=== PATIENT | male | born 1935 | race Caucasian/White ===

== ENCOUNTER 2017-01-16 04:47 | Inpatient (IN) | payer MEDICARE, OTHER ==
[~2017-01-16] VITALS: Ht 177.8 cm; Wt 72.0 kg
[2017-01-16] VITALS (54 sets, daily range): BP systolic 85–160; BP diastolic 56–107; PULSE 72–115; RESP 14–35; TEMP 102.3; Ht 177.8 cm; Wt 72.0 kg
[~2017-01-16 04:47] MED LIST: ACET325T45 PO; AMLO-218 PO; ASPI-664 PO; ATEN50TA PO; BISA-57 PO; CRAN3875 PO; DONE10TA7 PO; MAGN400O4 PO; MEMA5TAB PO; NA P118E PR; TYL500 PO; ZOC10 PO
[2017-01-16] MEDS ORDERED: PROPOFOL 200 MG INJ ONE (05:00)
[2017-01-16] MEDS ORDERED: ETOMIDATE 20 MG INJ ONE (05:00)
[2017-01-16] MEDS ORDERED: ROCURONIUM 50 MG INJ ONE (05:00)
--- NOTE | 2017-01-16 05:24 | ERA ---
ER Documentation Chief Complaint Date/Time DATE: 01/16/17 TIME: 05:24 Chief Complaint Acute respiratory failure HPI . The patient is a 81-year-old male, presenting to the ER because of worsening shortness of breath tonight. He is unable to provide history, the history is obtained from the wool broker in medical record. He is unable has been taking antibiotic for pneumonia Past medical history: Dementia, TIA, hypertension, dyslipidemia Past surgical history/social history/review of system: Unable to obtain due to his condition ROS All systems reviewed and are negative except as per history of present illness. Medications Home Meds Reported Medications Cran/Vitc/Mannose/Inulin/Brom (Uti-Stat Liquid) 3,875 Mg/30 Ml Liquid, 3875 MG PO DAILY 05/05/14 Acetaminophen* (Tylenol*) 500 Mg Tab, 1000 MG PO BID for PAIN AND OR ELEVATED TEMP, TAB 05/05/14 Aspirin* (Aspirin* (EC)) 81 Mg Tablet.dr, 81 MG PO DAILY, TAB 05/05/14 Simvastatin (Simvastatin) 10 Mg Tablet, 10 MG PO HS, TAB 05/05/14 Amlodipine Besylate* (Norvasc*) 10 Mg Tablet, 10 MG PO DAILY, TAB 05/05/14 Atenolol* (Atenolol*) 50 Mg Tablet, 50 MG PO DAILY, TAB 05/05/14 Donepezil* (Aricept*) 10 Mg Tablet, 10 MG PO QHS, TAB 05/05/14 Na Phos,M-B/Na Phos,Di-Ba* (Fleet* Enema) 118 Ml Enema, 118 ML SC DAILY Y for CONSTIPATION, ENEMA 05/05/14 Acetaminophen* (Acetaminophen*) 325 Mg Tablet, 650 MG PO Q4H Y for MILD, TAB 05/05/14 Magnesium Hydroxide* (Milk Of Magnesia*) 400 Mg/5 Ml Oral.susp, 30 ML PO QHS Y for CONSTIPATION, ML 05/05/14 Bisacodyl* (Dulcolax*) 5 Mg Tablet.dr, 10 MG PO DAILY Y for CONSTIPATION, TAB 05/05/14 Memantine* (Namenda*) 5 Mg Tablet, 5 MG PO DAILY, TAB 05/05/14 Allergies Allergies: Coded Allergies: No Known Allergy (Verified , 05/05/14) PMhx/Soc History of Surgery: No Anesthesia Reaction: No Hx Neurological Disorder: Yes (confused) Hx Respiratory Disorders: No Hx Cardiac Disorders: Yes (htn,CAD) Hx Psychiatric Problems: Yes (psychosis per record) Hx Miscellaneous Medical Probl: No Hx Alcohol Use: No Hx Substance Use: No Hx Tobacco Use: No Physical Exam Vitals Vital Signs Date Time Temp Pulse Resp B/P Pulse Ox O2 Delivery O2 Flow Rate FiO2 01/16/17 05:40 102.3 140 20 210/121 100 Non Rebreather 01/16/17 05:30 102.3 137 20 202/115 100 Non Rebreather 01/16/17 05:20 102.3 130 20 181/107 100 Non Rebreather 01/16/17 05:10 102.3 127 20 186/135 100 Non Rebreather 01/16/17 05:00 136 21 197/127 80 Non Rebreather 01/16/17 05:00 121 20 100 100 01/16/17 04:59 136 22 197/127 98 Mechanical Ventilator 01/16/17 04:54 63 21 197/127 80 Physical Exam Const: acute respiratory distress. Head: Atraumatic. Eyes: Normal Conjunctiva. ENT: Normal External Ears, Nose and Mouth. Neck: Full range of motion. No meningismus. Resp: Tachypneic, rhonchi anterior and lateral Cardio: Regular Tachycardic Abd: Soft, non distended, normal bowel sounds, non tender. Skin: No petechiae or rashes. Back: No midline or flank tenderness. Ext: No cyanosis, or edema. Neur: Unable to perform due to his condition Psych: Unable to perform due to his condition Result Diagram: 01/16/17 0503 Results 24 hrs Laboratory Tests Test 01/16/17 05:03 01/16/17 05:15 White Blood Count 21.810^3/ul Red Blood Count 4.1910^6/ul Hemoglobin 11.5g/dl Hematocrit 38.6% Mean Corpuscular Volume 92.1fl Mean Corpuscular Hemoglobin 27.4pg Mean Corpuscular Hemoglobin Concent 29.8g/dl Red Cell Distribution Width 19.4% Platelet Count 38311^3/UL Mean Platelet Volume 12.3fl Neutrophils % 79.7% Lymphocytes % 13.8% Monocytes % 5.4% Eosinophils % 0.3% Basophils % 0.2% Nucleated Red Blood Cells % 0.1/100WBC Neutrophils # 17.310^3/ul Lymphocytes # 3.010^3/ul Monocytes # 1.210^3/ul Eosinophils # 0.110^3/ul Basophils # 0.010^3/ul Nucleated Red Blood Cells # 0.010^3/ul Prothrombin Time 15.1Sec Prothrombin Time Ratio 1.2 INR International Normalized Ratio 1.18 Activated Partial Thromboplast Time 43.4Sec Urine Color YELLOW Urine Clarity CLEAR Urine pH 8.0 Urine Specific [place] 1.025 Urine Ketones NEGATIVEmg/dL Urine Nitrite NEGATIVEmg/dL Urine Bilirubin NEGATIVEmg/dL Urine Urobilinogen 1+mg/dL Urine Leukocyte Esterase NEGATIVELeu/ul Urine Microscopic RBC 1/HPF Urine Microscopic WBC 0/HPF Urine Hemoglobin NEGATIVEmg/dL Urine Glucose NEGATIVEmg/dL Urine Total Protein 2+mg/dl Current Medications Medications (Trade) Dose Ordered Sig/Den Route PRN Reason Start Time Stop Time Status Last Admin Dose Admin Vancomycin HCl 250 ml @ 125 mls/hr ONCE IVPB 01/16/17 06:00 01/16/17 07:59 Cefepime HCl 50 ml @ 100 mls/hr ONCE ONCE IVPB 01/16/17 06:00 01/16/17 06:29 Sodium Chloride (NS) 2,230 ml @ 2,230 mls/hr BOLUS X1 ONCE IV 01/16/17 06:00 01/16/17 06:59 Acetaminophen (Tylenol Supp) 650 mg ONCE ONCE SC 01/16/17 06:00 01/16/17 06:01 Procedures/[place] [id number] Radiology Main Line: [phone] DIAGNOSTIC IMAGING REPORT Patient: STIVEN RINCON : 1935 Age: 81 Sex: M MR #: [id number] DOS: 01/16/17 0524 Ordering MD: DURGA BLUM MD Location: E/R Room/Bed: PROCEDURE: Chest. CLINICAL INDICATION: Chest pain. TECHNIQUE: Single frontal view of the chest was obtained. COMPARISON: 05/05/2014. FINDINGS: Mediasternotomy wires are present. There is an endotracheal tube 5 cm above the ariadna. There is a right IJ central venous cath extending to the SVC. The cardiac silhouette is within normal limits. The aortic arch is uncoiled. There are bibasilar atelectasis/infiltrates. There is no pneumothorax. IMPRESSION: Bibasilar atelectasis/infiltrates. Endotracheal tube and right IJ central venous catheter in place. .Jerrod Velez MD, Date Time Electronically viewed and signed by .Jerrod Velez MD, on 01/16/2017 05:41 .T/ CC: DURGA BLUM MD EKG: Read by emergency physician Rate/Rhythm: Sinus Tachycardia 142 beats/min QRS, ST, T-waves: No ST elevation, no T inversion, LAE, MEDICAL MAKING DECISION: Anterior ST and T abnormality Impression: Abnormal EKG MEDICAL MAKING DECISION: The patient is a 81-year-old male, presenting with acute respiratory failure, acute pneumonia. He was treated with Tylenol suppository for fever, normal saline 30 mL per kilogram IV, vancomycin IV, Cefepime IV with good response. CMP, lactic acid pending Central Line Placement by me: Patient consented, sterilely draped, full prep, gown, glove, mask, time out performed. Anesthesia: 1% lidocaine locally Location: Rt IJ Device: Multiple lumen Technique: Seldinger technique. Secured with suture. Results: Venous return from all ports with easy saline flush. No complications. Guide wire retrieved and disposed of. [ED Ultrasound: Central line placed by me using concurrent ultrasound guidance. Real time image archived in the medical record confirms vascular anatomy. Chest X-ray 1V Interpreted by me: Central line in SVC, Normal soft tissue, No evidence of pneumothorax. Endotracheal Intubation by me: Pre assessment performed. See preceding note for details. Pre-oxygenation performed with 100% oxygen RSI: Performed w/o complication or hypoxic events. Medications as ordered. Blade: [place] Scope ET Tube: 7.5 cm Depth: 23 cm at the lip Intubation confirmed by colorimetric CO2, equal breath sounds, quiet over the stomach. Departure Diagnosis: Primary Impression: Acute respiratory failure Additional Impressions: Pneumonia Anemia BLUM,DURGA M MD Jan 16, 2017 05:24
[2017-01-16 05:32] LABS: BASOPHILS % 0.2 % (0.0-2.0); EOSINOPHILS # 0.1 10^3/ul (0.0-0.5); EOSINOPHILS % 0.3 % (0.0-7.0); HEMATOCRIT 38.6 % (42.0-52.0); HEMOGLOBIN 11.5 g/dl (14.0-18.0); LYMPHOCYTES % 13.8 % (15.0-51.0); MEAN CORPUSCULAR HEMOGLOBIN 27.4 pg (29.0-33.0); MEAN CORPUSCULAR HGB CONC 29.8 g/dl (32.0-37.0); MEAN CORPUSCULAR VOLUME 92.1 fl (82.0-101.0); MEAN PLATELET VOLUME 12.3 fl (7.4-10.4); MONOCYTE # 1.2 10^3/ul (0.3-0.9); MONOCYTES % 5.4 % (0.0-11.0); NEUTROPHIL # 17.3 10^3/ul (1.6-7.5); NEUTROPHILS % 79.7 % (39.0-77.0); NUCLEATED RED BLOOD CELLS% 0.1 /100WBC (0.0-0.0); PLATELET COUNT 347 10^3/UL (140-415); RED BLOOD COUNT 4.19 10^6/ul (4.70-6.10); RED CELL DISTRIBUTION WIDTH 19.4 % (11.5-14.5); WHITE BLOOD COUNT 21.8 10^3/ul (4.8-10.8)
[2017-01-16 05:36] LABS: INR 1.18; PROTIME 15.1 Sec (12.2-14.2); PT RATIO 1.2
[2017-01-16 05:37] LABS: PARTIAL THROMBOPLASTIN TIME 43.4 Sec (25.0-35.0)
[2017-01-16 05:41] LABS: ADD UMIC YES; UR ASCORBIC ACID 40 mg/dL (NEGATIVE); UR BILIRUBIN (Dip) NEGATIVE (NEGATIVE); UR BLOOD (Dip) NEGATIVE (NEGATIVE); UR CLARITY CLEAR (CLEAR); UR COLOR YELLOW (YELLOW); UR GLUCOSE (Dip) NEGATIVE (NEGATIVE); UR KETONES (Dip) NEGATIVE (NEGATIVE); UR LEUKOCYTE ESTERASE (Dip) NEGATIVE Leu/ul (NEGATIVE); UR NITRITE (Dip) NEGATIVE (NEGATIVE); UR RBC 1 /HPF (0-5); UR SPECIFIC GRAVITY (Dip) 1.025 (1.003-1.030); UR TOTAL PROTEIN (Dip) 2+ mg/dl (NEGATIVE); UR UROBILINOGEN (Dip) 1+ mg/dL (NEGATIVE)
--- NOTE | 2017-01-16 05:41 | RADRPT ---
PROCEDURE: Chest. CLINICAL INDICATION: Chest pain. TECHNIQUE: Single frontal view of the chest was obtained. COMPARISON: 05/05/2014. FINDINGS: Mediasternotomy wires are present. There is an endotracheal tube 5 cm above the ariadna. There is a r ight IJ central venous cath extending to the SVC. The cardiac silhouette is within normal limits. T he aortic arch is uncoiled. There are bibasilar atelectasis/infiltrates. There is no pneumothorax. IMPRESSION: Bibasilar atelectasis/infiltrates. Endotracheal tube and right IJ central venous catheter in place. .Jerrod Velez MD, MD Date Time Electronically viewed and signed by .Jerrod Velez MD, MD on 01/16/2017 05:41 .T/
[2017-01-16 05:43] LABS: ALBUMIN 3.7 g/dl (3.3-4.9); ALBUMIN/GLOBULIN RATIO 0.71; BILIRUBIN,INDIRECT 0.2 mg/dl (0-1.1); BILIRUBIN,TOTAL 0.2 mg/dl (0.2-1.3); CALCIUM 9.7 mg/dl (8.4-10.2); CREATININE 1.64 mg/dl (0.61-1.24); POTASSIUM 3.7 mmol/L (3.5-5.1); TOTAL PROTEIN 8.9 g/dl (6.1-8.1)
[2017-01-16 05:54] LABS: TROPONIN-I 0.042 ng/ml (0.00-0.12)
[2017-01-16] MEDS: SOD CHLORIDE 0.9% 1,000 ML IV SCH ×3 (05:56→16:38)
[2017-01-16] MEDS ORDERED: ACETAMINOPHEN 650 MG SUPP PR PRN (06:00)
[2017-01-16] MEDS ORDERED: SOD CHLORIDE 0.9% IV ONE (06:00)
[2017-01-16] MEDS ORDERED: PANTOPRAZOLE 40 MG INJ IV SCH (06:00)
[2017-01-16] MEDS ORDERED: ONDANSETRON 4 MG INJ IV PRN (06:00)
[2017-01-16] MEDS ORDERED: VANCOMYCIN 1 GM (PMX) 250 ML IVPB SCH (06:00)
[2017-01-16] MEDS ORDERED: CEFEPIME 1GM/50 ML (PMX) 50 ML IVPB ONE (06:00)
[2017-01-16] MEDS ORDERED: ACETAMINOPHEN 650 MG SUPP PR ONE (06:00)
[2017-01-16] MEDS ORDERED: METO-429 PO (06:22)
[2017-01-16] MEDS ORDERED: FAMO20TA18 PO (06:25)
[2017-01-16] MEDS ORDERED: ATOR20TA38 PO (06:25)
[2017-01-16] MEDS ORDERED: TAMS0.4C2 PO (06:25)
[2017-01-16] MEDS ORDERED: DOXA2TAB PO (06:25)
[2017-01-16] MEDS ORDERED: IPRA3AMP INHALATION (06:26)
[2017-01-16] MEDS ORDERED: QUET25TA33 PO (06:26)
[2017-01-16] MEDS ORDERED: PROPOFOL 100 ML IV ONE (06:30)
[2017-01-16] MEDS ORDERED: PIPER-TAZO 2.25 GM (PMX) 50 ML IVPB SCH (09:00)
[2017-01-16] MEDS ORDERED: DEXTROSE 5% 1,000 ML IV ONE ×2 (09:00)
[2017-01-16] MEDS ORDERED: VANCOMYCIN IV PER PHARMACY XX SCH (09:00)
[2017-01-16] MEDS ORDERED: NACL 0.9% 3 ML SYG IV SCH (09:00)
[2017-01-16 09:36] LABS: AADO2 Arterial 556.7 mmHg (7.0-24.0); Allen Test ACCEPTAB; Arterial Base Excess -4.4 mmol/L (-3.0-3); Arterial COHb 0.2 % (0.0-3.0); Arterial Fraction of Oxyhgb 97.5 % (93.0-99.0); Arterial HCO3 20.8 mmol/L (22.0-26.0); Arterial MetHb 0.4 % (0.0-1.5); Arterial Total Hemglobin 9.6 g/dl (12.0-18.0); MODE VENT - AC
[2017-01-16 09:55] LABS: CALCIUM 8.1 mg/dl (8.4-10.2); CREATININE 1.57 mg/dl (0.61-1.24); POTASSIUM 3.7 mmol/L (3.5-5.1)
[2017-01-16] MEDS: ENOXAPARIN 30 MG/0.3 ML SYG SC SCH (10:52)
--- NOTE | 2017-01-16 10:59 | CONS ---
Date/Time of Note Date/Time of Note DATE: 01/16/17 TIME: 10:55 Assessment/Plan Assessment/Plan Additional Assessment/Plan Data setting; AC of 20, tidal volume 500, PEEP of 5, 100% FiO2. Patient currently on propofol at 25 mics per kilogram per minute. She also is getting intravenous of D5 for severe hypernatremia. And has been adequately fluid resuscitated. Chest x-ray was reviewed from today which is showing minimal right lower lobe segmental atelectasis. ET tube is at an adequate level. Assessment and recommendations; next 1. Patient admitted with severe hyponatremia and intravascular volume depletion. 2. Possibly sepsis, source is unclear. 3. History of hypertension dementia. 4. Chronic dysphagia, as evidenced by G-tube placement. 5. Prerenal azotemia. Next Continue current treatment. Will obtain a blood gas. Once ABGs done I will review it and make further recommendations. Monitor electrolytes. Consultation Date/Type/Reason Admit Date/Time Jan 16, 2017 at 05:58 Date of Consultation: Jan 16, 2017 Type of Consultation: Pulmonary/critical care Reason for Consultation Pulmonary consultation requested for evaluation of respiratory failure. History of presenting illness; patient is a 9-year-old white male who was transferred from skilled nursing with complaints of being short of breath and no doing well. By the time the patient was seen he was completely obtunded and had to be intubated for respiratory failure. History was obtained from medical records. Patient apparently does not have any family. Past medical history; 1. Dementia. 2. Chronic dysphagia, status post G-tube placement. Medications; reviewed. Allergies; none. Social history, family history, occupational histories not available. Review systems; unable to be obtained. General exam; elderly male, orally intubated, sedated. Currently in no distress. Social History Smoking Status: Unknown if ever smoked Exam/Review of Systems Vital Signs Vitals Vital Signs Date Time Temp Pulse Resp B/P Pulse Ox O2 Delivery O2 Flow Rate FiO2 01/16/17 08:00 99 01/16/17 06:38 20 118/78 100 T Tube 01/16/17 05:40 102.3 01/16/17 05:00 100 Exam HEENT exam; supple neck, no JVD. No lymphadenopathy. Midline trachea. No thyromegaly. Orally intubated. Patient has a multiple carious teeth. Pupils are small bilaterally. Chest exam; diminished but clear breath sounds. S1-S2 audible, no murmurs. There is a well-healed sternal scar. Abdomen exam; soft, G-tube in place. Bowel sounds are sluggish. Abdomen is nondistended. No organomegaly felt. Extremity exam; no peripheral edema. PERSONNEL TECHNICIAN exam; patient is sedated. Results Result Diagram: 01/16/17 0503 01/16/17 0918 Results 24 hrs Laboratory Tests Test 01/16/17 05:03 01/16/17 05:15 01/16/17 08:47 01/16/17 09:18 White Blood Count 21.8 #H Red Blood Count 4.19 L Hemoglobin 11.5 #L Hematocrit 38.6 L Mean Corpuscular Volume 92.1 Mean Corpuscular Hemoglobin 27.4 L Mean Corpuscular Hemoglobin Concent 29.8 L Red Cell Distribution Width 19.4 #H Platelet Count 347 Mean Platelet Volume 12.3 #H Neutrophils % 79.7 H Lymphocytes % 13.8 L Monocytes % 5.4 Eosinophils % 0.3 Basophils % 0.2 Nucleated Red Blood Cells % 0.1 H Neutrophils # 17.3 H Lymphocytes # 3.0 H Monocytes # 1.2 H Eosinophils # 0.1 Basophils # 0.0 Nucleated Red Blood Cells # 0.0 Prothrombin Time 15.1 H Prothrombin Time Ratio 1.2 INR International Normalized Ratio 1.18 Activated Partial Thromboplast Time 43.4 H Sodium Level 178 *H 166 *H Potassium Level 3.7 3.7 Chloride Level 135 H 135 H Carbon Dioxide Level 25 23 Anion Gap 22 H 12 # Blood Urea Nitrogen 72 H 64 H Creatinine 1.64 H 1.57 H Glucose Level 149 269 #H Lactic Acid Level 3.3 *H 2.0 Calcium Level 9.7 8.1 L Total Bilirubin 0.2 Direct Bilirubin 0.00 Indirect Bilirubin 0.2 Aspartate Amino Transf (AST/SGOT) 36 Alanine Aminotransferase (ALT/SGPT) 30 Alkaline Phosphatase 118 Troponin I 0.042 Total Protein 8.9 H Albumin 3.7 Globulin 5.20 H Albumin/Globulin Ratio 0.71 Urine Color YELLOW Urine Clarity CLEAR Urine pH 8.0 Urine Specific [place] 1.025 Urine Ketones NEGATIVE Urine Nitrite NEGATIVE Urine Bilirubin NEGATIVE Urine Urobilinogen 1+ H Urine Leukocyte Esterase NEGATIVE Urine Microscopic RBC 1 Urine Microscopic WBC 0 Urine Hemoglobin NEGATIVE Urine Glucose NEGATIVE Urine Total Protein 2+ H Blood Gas Specimen Source Blood arterial Arterial Blood Date Drawn 01/16/2017 9:20:15 AM Arterial Blood pH (Temp corrected) 7.350 Arterial Blood pCO2 (Temp correct) 38.5 Arterial Blood pO2 (Temp corrected) 117.8 H Arterial Blood HCO3 20.8 L Arterial Blood Base Excess -4.4 L Arterial Blood Oxygen Saturation 98.1 Keith Test ACCEPTAB Arterial Blood Gas Puncture Site Right Radial Arterial Blood Carboxyhemoglobin 0.2 Arterial Blood Methemoglobin 0.4 Blood Gas A-a O2 Differential 556.7 H Oxyhemoglobin Percent 97.5 Total Hemoglobin 9.6 L Blood Gas Temperature 37.0 Blood Gas Respiration Rate 20.0 Blood Gas Actual Respiration Rate 28 Blood Gas Modality VENT - AC FiO2 100.0 Blood Gas Tidal Volume 500.0 Blood Gas Low PEEP Setting 5.0 Blood Gas Critical Value Read Back Katiuska PERDUE RN Blood Gas Notified Whom RDIX Blood Gas Notified Time 01/16/2017 9:36:04 AM Medications Medications Current Medications Sodium Chloride (NS) 1,000 ml @ 70 mls/hr [id number] IV ; Start 01/16/17 at 05:56 Ondansetron HCl (Zofran Inj) 4 mg Q6H PRN IV NAUSEA AND/OR VOMITING; Start at 06:00 Acetaminophen (Tylenol Supp) 650 mg Q4H PRN [place] PAIN LEVEL 1-3 OR FEVER; Start 01/16/17 at 06:00 Enoxaparin Sodium (Lovenox) 30 mg DAILY SC ; Start 01/16/17 at 09:00 Famotidine 20 mg 20 mg DAILY IV ; Start 01/17/17 at 09:00 Vancomycin HCl 500 mg/Dextrose 100 ml @ 100 mls/hr ONCE IVPB ; Start 01/16/17 at 12:00; Stop 01/16/17 at 18:00 Vancomycin HCl 750 mg/Dextrose/ Water 150 ml @ 75 mls/hr Q24H IVPB ; Start at 12:00 Piperacillin Sod/ Tazobactam Sod/ Dextrose (Zosyn/D5W) 50 ml @ 100 mls/hr Q6 IVPB ; Start 01/16/17 at 12:00 HANY LAWLER Jan 16, 2017 10:59
[2017-01-16] MEDS ORDERED: PIPERACILLIN/TAZO 2.25 GM in DEXTROSE 5% 50 ML IVPB SCH (12:00)
[2017-01-16] MEDS ORDERED: VANCOMYCIN 500 MG in DEXTROSE 5% 100 ML IVPB SCH (12:00)
[2017-01-16] MEDS: PROPOFOL 100 ML IV SCH ×3 (12:00→22:19)
--- NOTE | 2017-01-16 13:28 | HP ---
Date/Time of Note Date/Time of Note DATE: 01/16/17 TIME: 13:00 Assessment/Plan VTE Prophylaxis VTE Prophylaxis Intervention: LMWH Lines/Catheters IV Catheter Type (from Nrs): Peripheral IV Urinary Cath still in place: Yes Reason Cath still needed: urinary retention Assessment/Plan Chief Complaint/Hosp Course 81 yo male with advanced Alzheimer's and vascular dementia, CAD s/p CABG, recurrent aspiration pneumonias, PEG tube for dysphagia [place] resident who presents with sepsis from aspiration pneumonia and hypernatremia. Requiring intubation for acute hypoxic respiratory failure PULM: Acute hypoxic respiratory failure - Continue MV, currently to 100% FiO2 ID: Aspiration pneumonia, severe sepsis: - No effusion seen on bedside ultrasound, clear hepatization or RLL - Continue vanco/zosyn for now - Sputum culture - Blood cultures pending RENAL: Hypernatremia and JOSLYN - D5W to correct FW deficit slowly - s/p NS boluses to restore euvolemia - Trend electrolytes NEURO: Alzheimers and vascular dementia CV: Hypertension CAD s/p CABG - Aspirin and statin - Hold antihypertensives for now Lactic acidosis DMII: - Insulin gtt Overall patient with dismal jail prognosis. Patient and step daughter are aware of this and have discussed hospice previously. They are not willing to change goals of care at this time. Remains full code Problems: HPI/ROS Admit Date/Time Admit Date/Time Jan 16, 2017 at 05:58 Hx of Present Illness 81 yo male with advanced Alzheimers and vascular dementia, s/p CVA, recurrent aspiration pneumonias, dysphagia w PEG tube who presents with hypoxia and worsening lethargy from [place]. Per documentation was recently discharged from [facility] for pneumonia treated w [facility]. Unclear details during post hosptial course but clealry with wosening hypoxia and lethargy. Brought to hosptial and foudn to be febrile, hypoxic and emergently intubated in the ED. Also found to be severely hypernatremic Brought to ICU where I saw him. Unable to communicate wtih me but appears comfortable on the ventilator Step daughter and then showed up at bedside. DIscussed his dismal prongosis. THey are aware that he will not recovere from dementai and will suffer recurrent aspiration pneumonias but do not want to let him . Still request full court press PMH/Family/Social Past Medical History CAD s/p CABG Emphsyema Recurrent aspiration pneumonais Alzheimers dmeentia Vascular dementia Social History Smoking Status: Unknown if ever smoked Exam/Review of Systems Vital Signs Vitals Vital Signs Date Time Temp Pulse Resp B/P Pulse Ox O2 Delivery O2 Flow Rate FiO2 01/16/17 08:00 99 01/16/17 06:38 20 118/78 100 T Tube 01/16/17 05:40 102.3 01/16/17 05:00 100 Exam Exam Intubated Sedated Reacts to pain in all extremities Lungs rhoncorous anteriorly PEG tube Abdomen sof adeel nd No edema Labs Result Diagram: 01/16/17 0503 01/16/17 0918 Medications Medications Current Medications Sodium Chloride (NS) 1,000 ml @ 70 mls/hr [id number] IV Last administered on 01/16 11:30; Admin Dose 70 MLS/HR; Start 01/16/17 at 05:56 Ondansetron HCl (Zofran Inj) 4 mg Q6H PRN IV NAUSEA AND/OR VOMITING; Start at 06:00 Acetaminophen (Tylenol Supp) 650 mg Q4H PRN [place] PAIN LEVEL 1-3 OR FEVER; Start 01/16/17 at 06:00 Enoxaparin Sodium (Lovenox) 30 mg DAILY SC Last administered on 01/16/17 10:52 ; Admin Dose 30 MG; Start 01/16/17 at 09:00 Famotidine 20 mg 20 mg DAILY IV ; Start 01/17/17 at 09:00 Vancomycin HCl 500 mg/Dextrose 100 ml @ 100 mls/hr ONCE IVPB Last administered on 01/16/17 12:11; Admin Dose 100 MLS/HR; Start 01/16/17 at 12:00 ; Stop 01/16/17 at 18:00 Vancomycin HCl 750 mg/Dextrose/ Water 150 ml @ 75 mls/hr Q24H IVPB ; Start at 12:00 Piperacillin Sod/ Tazobactam Sod 2.25 gm/Dextrose 50 ml @ 100 mls/hr Q6 IVPB ; Start 01/16/17 at 12:00 Propofol (Diprivan) 100 ml @ 2.16 mls/hr Q12H IV Last administered on 12:41; Admin Dose 10.8 MLS/HR; Start 9/23/17 at 12:00 KARLIE VELEZ MD Jan 16, 2017 13:21
[2017-01-16 15:58] LABS: CALCIUM 7.8 mg/dl (8.4-10.2); CREATININE 1.61 mg/dl (0.61-1.24); POTASSIUM 3.1 mmol/L (3.5-5.1)
[2017-01-16] MEDS: POTASSIUM CHLORIDE 250 ML IVPB SCH ×2 (19:45→23:08)
--- NOTE | 2017-01-16 21:05 | RADRPT ---
PROCEDURE: XR Chest. CLINICAL INDICATION: Shortness of breath. TECHNIQUE: AP Portable chest. COMPARISON: Examination performed earlier the same day. FINDINGS: There is mild cardiomegaly. Prior median sternotomy is noted. There is mild pulmonary vascular vee estion with hazy opacity at the right lung base. The osseous structures are unremarkable. An endotracheal tube tip is in the mid trachea. A right internal jugular central venous catheter is seen with tip in the superior vena cava. IMPRESSION: Mild pulmonary vascular congestion and hazy opacity at the right lung base, likely due to pleural ef fusion. RPTAT: HIKT .Jeferson Gibbons MD, MD Date Time Electronically viewed and signed by .Jeferson Gibbons MD, MD on 01/16/2017 21:04 .T/
[2017-01-16 21:13] LABS: CALCIUM 7.7 mg/dl (8.4-10.2); CREATININE 1.66 mg/dl (0.61-1.24); POTASSIUM 3.8 mmol/L (3.5-5.1)
[2017-01-16] MEDS: PIPERACILLIN/TAZO 2.25 GM in DEXTROSE 5% 50 ML IVPB SCH (22:21)
[2017-01-17] VITALS (84 sets, daily range): BP systolic 90–130; BP diastolic 51–78; PULSE 70–88; RESP 16–45
[2017-01-17] MEDS: PIPERACILLIN/TAZO 2.25 GM in DEXTROSE 5% 50 ML IVPB SCH ×4 (04:00→21:49)
[2017-01-17 04:07] LABS: INR 1.38; PT RATIO 1.3
[2017-01-17 04:08] LABS: ALBUMIN 2.3 g/dl (3.3-4.9); ALBUMIN/GLOBULIN RATIO 0.62; BILIRUBIN,INDIRECT 0.1 mg/dl (0-1.1); BILIRUBIN,TOTAL 0.1 mg/dl (0.2-1.3); CALCIUM 7.8 mg/dl (8.4-10.2); CREATININE 1.61 mg/dl (0.61-1.24); POTASSIUM 4.2 mmol/L (3.5-5.1)
[2017-01-17 04:13] LABS: BASOPHILS % 0.2 % (0.0-2.0); EOSINOPHILS # 0.8 10^3/ul (0.0-0.5); EOSINOPHILS % 6.7 % (0.0-7.0); HEMATOCRIT 24.3 % (42.0-52.0); HEMOGLOBIN 7.2 g/dl (14.0-18.0); LYMPHOCYTES # 1.3 10^3/ul (0.8-2.9); LYMPHOCYTES % 11.1 % (15.0-51.0); MEAN CORPUSCULAR HEMOGLOBIN 27.7 pg (29.0-33.0); MEAN CORPUSCULAR HGB CONC 29.6 g/dl (32.0-37.0); MEAN CORPUSCULAR VOLUME 93.5 fl (82.0-101.0); MEAN PLATELET VOLUME 12.3 fl (7.4-10.4); MONOCYTE # 0.3 10^3/ul (0.3-0.9); MONOCYTES % 2.5 % (0.0-11.0); NEUTROPHIL # 9.1 10^3/ul (1.6-7.5); NEUTROPHILS % 79.1 % (39.0-77.0); NUCLEATED RED BLOOD CELLS% 0.2 /100WBC (0.0-0.0); PLATELET COUNT 180 10^3/UL (140-415); RED CELL DISTRIBUTION WIDTH 19.1 % (11.5-14.5); WHITE BLOOD COUNT 11.5 10^3/ul (4.8-10.8)
[2017-01-17] MEDS: SOD CHLORIDE 0.9% 1,000 ML IV SCH (06:27)
[2017-01-17] MEDS: FAMOTIDINE 20 MG INJ IV SCH (08:18)
[2017-01-17] MEDS: ENOXAPARIN 30 MG/0.3 ML SYG SC SCH (08:20)
[2017-01-17 09:14] LABS: BASOPHILS % 0.2 % (0.0-2.0); EOSINOPHILS # 0.9 10^3/ul (0.0-0.5); EOSINOPHILS % 7.8 % (0.0-7.0); HEMOGLOBIN 7.3 g/dl (14.0-18.0); LYMPHOCYTES # 1.1 10^3/ul (0.8-2.9); LYMPHOCYTES % 9.3 % (15.0-51.0); MEAN CORPUSCULAR HEMOGLOBIN 28.3 pg (29.0-33.0); MEAN CORPUSCULAR HGB CONC 30.4 g/dl (32.0-37.0); MEAN PLATELET VOLUME 12.4 fl (7.4-10.4); MONOCYTE # 0.2 10^3/ul (0.3-0.9); MONOCYTES % 1.6 % (0.0-11.0); NEUTROPHIL # 9.4 10^3/ul (1.6-7.5); NEUTROPHILS % 80.8 % (39.0-77.0); PLATELET COUNT 174 10^3/UL (140-415); RED BLOOD COUNT 2.58 10^6/ul (4.70-6.10); RED CELL DISTRIBUTION WIDTH 19.1 % (11.5-14.5); WHITE BLOOD COUNT 11.6 10^3/ul (4.8-10.8)
[2017-01-17 09:27] LABS: CREATININE 1.5 mg/dl (0.61-1.24); POTASSIUM 4.1 mmol/L (3.5-5.1)
[2017-01-17 09:59] LABS: CALCIUM 8.1 mg/dl (8.4-10.2)
[2017-01-17] MEDS: PROPOFOL 100 ML IV SCH ×2 (10:44→21:35)
[2017-01-17] MEDS: VANCOMYCIN 750 MG in DEXTROSE 5% 150 ML IVPB SCH (10:50)
--- NOTE | 2017-01-17 10:52 | CONS ---
Date/Time of Note Date/Time of Note DATE: 01/17/17 TIME: 10:48 Assessment/Plan Assessment/Plan Additional Assessment/Plan Ventilator setting; AC of 20, tidal volume 500, PEEP of 5, 60% FiO2. Patient is currently on propofol at 20 mics per kilogram per minute. Assessment and recommendations; 1. Patient admitted with bilateral pneumonia leading to respiratory failure. 2. Severe intravascular volume depletion with severe hypernatremia. 3. Dementia. 4. History of chronic dysphagia, status post G-tube placement in the past. 5. History of CABG. 6. Chronic renal insufficiency. 7. Anemia and mild thrombocytopenia. 8. Episodes of ventricular tachycardia, corrected by potassium replacement. Continue current treatment. Obtain follow-up chest x-ray. Wean down FiO2 to keep O2 saturation around 94%. Continue IV hydration. Monitor renal function and electrolytes. 35 minutes of critical care time was spent evaluating the patient. Consultation Date/Type/Reason Admit Date/Time Jan 16, 2017 at 05:58 Initial Consult Date 01/16/17 Type of Consultation: Pulmonary/critical care 24 HR Interval Summary Free Text/Dictation Patient's condition remains critical. Currently on low-dose propofol drip for sedation. General exam; elderly male, orally intubated, sedated. Currently in no distress. Exam/Review of Systems Vital Signs Vitals Vital Signs Date Time Temp Pulse Resp B/P Pulse Ox O2 Delivery O2 Flow Rate FiO2 01/17/17 09:28 35 01/17/17 09:15 76 24 100 01/17/17 09:00 121/78 01/17/17 07:15 99.1 01/16/17 06:38 T Tube Intake and Output 01/16/17 01/16/17 01/17/17 15:00 23:00 07:00 Intake Total 2564 ml 1321.6 ml 1717.0 ml Output Total 275 ml 345 ml 175 ml Balance 2289 ml 976.6 ml 1542.0 ml Exam HEENT exam; supple neck, no JVD. No lymphadenopathy. Midline trachea. No thyromegaly. Orally intubated. Multiple carious teeth. Has bilateral intraocular lens implants. Chest exam; diminished breath sounds bilaterally. No added sounds. S1-S2 audible, no murmurs. Regular rhythm. Abdomen exam; soft, no organomegaly. G-tube in place. Bowel sounds are audible. Extremity exam; no peripheral edema. Patient does have ecchymosis involving all 4 extremities. SHANK PIECE TACKER exam; patient is sedated. Results Result Diagram: 01/17/17 0855 01/17/17 0855 Results 24 hrs Laboratory Tests Test 01/16/17 11:22 01/16/17 15:07 01/16/17 20:50 01/17/17 03:09 Lactic Acid Level 3.0 *H Sodium Level 158 H 156 H 157 H Potassium Level 3.1 L 3.8 4.2 Chloride Level 127 H 127 H 131 H Carbon Dioxide Level 24 25 22 Anion Gap 10 8 8 Blood Urea Nitrogen 56 H 53 H 50 H Creatinine 1.61 H 1.66 H 1.61 H Glucose Level 138 # 108 121 Calcium Level 7.8 L 7.7 L 7.8 L White Blood Count 11.5 #H Red Blood Count 2.60 #L Hemoglobin 7.2 #L Hematocrit 24.3 #L Mean Corpuscular Volume 93.5 Mean Corpuscular Hemoglobin 27.7 L Mean Corpuscular Hemoglobin Concent 29.6 L Red Cell Distribution Width 19.1 H Platelet Count 180 # Mean Platelet Volume 12.3 H Neutrophils % 79.1 H Lymphocytes % 11.1 L Monocytes % 2.5 Eosinophils % 6.7 Basophils % 0.2 Nucleated Red Blood Cells % 0.2 H Neutrophils # 9.1 H Lymphocytes # 1.3 Monocytes # 0.3 Eosinophils # 0.8 H Basophils # 0.0 Nucleated Red Blood Cells # 0.0 Prothrombin Time 17.0 H Prothrombin Time Ratio 1.3 INR International Normalized Ratio 1.38 Total Bilirubin 0.1 L Direct Bilirubin 0.00 Indirect Bilirubin 0.1 Aspartate Amino Transf (AST/SGOT) 21 Alanine Aminotransferase (ALT/SGPT) 36 Alkaline Phosphatase 73 Total Protein 6.0 #L Albumin 2.3 #L Globulin 3.70 H Albumin/Globulin Ratio 0.62 Test 01/17/17 08:54 01/17/17 08:55 Magnesium Level 2.2 White Blood Count 11.6 H Red Blood Count 2.58 L Hemoglobin 7.3 L Hematocrit 24.0 L Mean Corpuscular Volume 93.0 Mean Corpuscular Hemoglobin 28.3 L Mean Corpuscular Hemoglobin Concent 30.4 L Red Cell Distribution Width 19.1 H Platelet Count 174 Mean Platelet Volume 12.4 H Neutrophils % 80.8 H Lymphocytes % 9.3 L Monocytes % 1.6 Eosinophils % 7.8 H Basophils % 0.2 Nucleated Red Blood Cells % 0.0 Neutrophils # 9.4 H Lymphocytes # 1.1 Monocytes # 0.2 L Eosinophils # 0.9 H Basophils # 0.0 Nucleated Red Blood Cells # 0.0 Sodium Level 157 H Potassium Level 4.1 Chloride Level 129 H Carbon Dioxide Level 22 Anion Gap 10 Blood Urea Nitrogen 48 H Creatinine 1.50 H Glucose Level 147 Calcium Level 8.1 L Medications Medications Current Medications Ondansetron HCl (Zofran Inj) 4 mg Q6H PRN IV NAUSEA AND/OR VOMITING; Start at 06:00 Acetaminophen (Tylenol Supp) 650 mg Q4H PRN [place] PAIN LEVEL 1-3 OR FEVER; Start 01/16/17 at 06:00 Enoxaparin Sodium (Lovenox) 30 mg DAILY SC Last administered on 01/17/17 08:20 ; Admin Dose 30 MG; Start 01/16/17 at 09:00 Famotidine 20 mg 20 mg DAILY IV Last administered on 01/17/17 08:18; Admin Dose 20 MG; Start 01/17/17 at 09:00 Vancomycin HCl 750 mg/Dextrose/ Water 150 ml @ 75 mls/hr Q24H IVPB ; Start at 12:00 Propofol 100 ml @ 2.16 mls/hr Q12H IV Last administered on 01/16/17 22:19; Admin Dose 8.64 MLS/HR; Start 01/16/17 at 12:00 Sodium Chloride 1,000 ml @ 70 mls/hr [id number] IV Last administered on 06:27; Admin Dose 70 MLS/HR; Start 01/16/17 at 16:30 Piperacillin Sod/ Tazobactam Sod/ Dextrose (Zosyn/D5W) 50 ml @ 100 mls/hr Q6H IVPB Last administered on 01/17/17 08:18; Admin Dose 100 MLS/HR; Start at 22:00 HANY LAWLER Jan 17, 2017 10:52
--- NOTE | 2017-01-17 16:15 | PN ---
Date/Time of Note Date/Time of Note DATE: 01/17/17 TIME: 16:13 Assessment/Plan VTE Prophylaxis VTE Prophylaxis Intervention: LMWH Lines/Catheters IV Catheter Type (from Nrsg): Central Line Central line still needed: Yes Urinary Cath still in place: Yes Reason Cath still needed: urinary retention Assessment/Plan Chief Complaint/Hosp Course 81 yo male with advanced Alzheimer's and vascular dementia, CAD s/p CABG, recurrent aspiration pneumonias, PEG tube for dysphagia NH resident who presents with sepsis from aspiration pneumonia and hypernatremia. Requiring intubation for acute hypoxic respiratory failure 2/2 health care associated pneumonia PULM: Acute hypoxic respiratory failure - Continue MV, currently to 100% FiO2 ID: Aspiration/healthcare associated pneumonia, severe sepsis: - No effusion seen on bedside ultrasound, clear hepatization of RLL - Continue vanco/zosyn - Sputum culture - Blood cultures pending RENAL: Hypernatremia and JOSLYN - D5W to correct FW deficit slowly - s/p NS boluses to restore euvolemia - Trend electrolytes - Unclear baseline creatinine but resolving NEURO: Alzheimers and vascular dementia - Stable CV: Hypertension CAD s/p CABG - Aspirin and statin - Hold antihypertensives for now Lactic acidosis DMII: - Insulin gtt Overall patient with dismal terminal carman prognosis. Patient and step daughter are aware of this and have discussed hospice previously. They are not willing to change goals of care at this time. Remains full code. Readdress daily Problems: Subjective 24 Hr Interval Summary Free Text/Dictation Great improvement in O2 sat, now on FIO2 35% today from 90% yesterday Nonverbal, apperas comfortable Exam/Review of Systems Vital Signs Vitals Vital Signs Date Time Temp Pulse Resp B/P Pulse Ox O2 Delivery O2 Flow Rate FiO2 01/17/17 15:33 98.9 01/17/17 15:17 87 33 98 30 01/17/17 14:30 111/63 01/16/17 06:38 T Tube Intake and Output 01/16/17 01/16/17 01/17/17 15:00 23:00 07:00 Intake Total 2564 ml 1321.6 ml 1717.0 ml Output Total 275 ml 345 ml 175 ml Balance 2289 ml 976.6 ml 1542.0 ml Exam Intubated PEG tube Nonverbal Spontaenous movements throughout Reacts to pain throughout Lungs w rhonchi Results Result Diagram: 01/17/17 0855 01/17/17 0855 Results 24 hrs Laboratory Tests Test 01/16/17 20:50 01/17/17 03:09 01/17/17 08:54 01/17/17 08:55 Sodium Level 156 H 157 H 157 H Potassium Level 3.8 4.2 4.1 Chloride Level 127 H 131 H 129 H Carbon Dioxide Level 25 22 22 Anion Gap 8 8 10 Blood Urea Nitrogen 53 H 50 H 48 H Creatinine 1.66 H 1.61 H 1.50 H Glucose Level 108 121 147 Calcium Level 7.7 L 7.8 L 8.1 L White Blood Count 11.5 #H 11.6 H Red Blood Count 2.60 #L 2.58 L Hemoglobin 7.2 #L 7.3 L Hematocrit 24.3 #L 24.0 L Mean Corpuscular Volume 93.5 93.0 Mean Corpuscular Hemoglobin 27.7 L 28.3 L Mean Corpuscular Hemoglobin Concent 29.6 L 30.4 L Red Cell Distribution Width 19.1 H 19.1 H Platelet Count 180 # 174 Mean Platelet Volume 12.3 H 12.4 H Neutrophils % 79.1 H 80.8 H Lymphocytes % 11.1 L 9.3 L Monocytes % 2.5 1.6 Eosinophils % 6.7 7.8 H Basophils % 0.2 0.2 Nucleated Red Blood Cells % 0.2 H 0.0 Neutrophils # 9.1 H 9.4 H Lymphocytes # 1.3 1.1 Monocytes # 0.3 0.2 L Eosinophils # 0.8 H 0.9 H Basophils # 0.0 0.0 Nucleated Red Blood Cells # 0.0 0.0 Prothrombin Time 17.0 H Prothrombin Time Ratio 1.3 INR International Normalized Ratio 1.38 Total Bilirubin 0.1 L Direct Bilirubin 0.00 Indirect Bilirubin 0.1 Aspartate Amino Transf (AST/SGOT) 21 Alanine Aminotransferase (ALT/SGPT) 36 Alkaline Phosphatase 73 Total Protein 6.0 #L Albumin 2.3 #L Globulin 3.70 H Albumin/Globulin Ratio 0.62 Magnesium Level 2.2 Medications Medications Current Medications Ondansetron HCl (Zofran Inj) 4 mg Q6H PRN IV NAUSEA AND/OR VOMITING; Start at 06:00 Acetaminophen (Tylenol Supp) 650 mg Q4H PRN [place] PAIN LEVEL 1-3 OR FEVER; Start 01/16/17 at 06:00 Enoxaparin Sodium (Lovenox) 30 mg DAILY SC Last administered on 01/17/17 08:20 ; Admin Dose 30 MG; Start 01/16/17 at 09:00 Famotidine 20 mg 20 mg DAILY IV Last administered on 01/17/17 08:18; Admin Dose 20 MG; Start 01/17/17 at 09:00 Vancomycin HCl 750 mg/Dextrose/ Water 150 ml @ 75 mls/hr Q24H IVPB Last administered on 01/17/17 10:50; Admin Dose 75 MLS/HR; Start 01/17/17 at 12:00 Propofol 100 ml @ 2.16 mls/hr Q12H IV Last administered on 01/17/17 10:44; Admin Dose 8.64 MLS/HR; Start 01/16/17 at 12:00 Sodium Chloride 1,000 ml @ 70 mls/hr [id number] IV Last administered on 06:27; Admin Dose 70 MLS/HR; Start 01/16/17 at 16:30 Piperacillin Sod/ Tazobactam Sod/ Dextrose (Zosyn/D5W) 50 ml @ 100 mls/hr Q6H IVPB Last administered on 01/17/17 15:31; Admin Dose 100 MLS/HR; Start at 22:00 KARLIE VELEZ MD Jan 17, 2017 16:15
[2017-01-17 16:48] LABS: CALCIUM 8.2 mg/dl (8.4-10.2); CREATININE 1.46 mg/dl (0.61-1.24); POTASSIUM 3.6 mmol/L (3.5-5.1)
[2017-01-17] MEDS: DEXTROSE 5% 1,000 ML IV SCH (17:13)
[2017-01-17 22:27] LABS: CREATININE 1.45 mg/dl (0.61-1.24); POTASSIUM 3.6 mmol/L (3.5-5.1)
[2017-01-18] VITALS (72 sets, daily range): BP systolic 103–135; BP diastolic 62–85; PULSE 64–81; RESP 15–49
[2017-01-18] MEDS: DEXTROSE 5% 1,000 ML IV SCH ×3 (02:30→17:17)
[2017-01-18 03:57] LABS: MAGNESIUM 2.3 mg/dl (1.7-2.5); PHOSPHORUS 2.8 mg/dl (2.5-4.9)
[2017-01-18 04:00] LABS: BASOPHILS % 0.2 % (0.0-2.0); HEMATOCRIT 23.4 % (42.0-52.0); LYMPHOCYTES # 1.4 10^3/ul (0.8-2.9); LYMPHOCYTES % 16.4 % (15.0-51.0); MEAN CORPUSCULAR HEMOGLOBIN 27.5 pg (29.0-33.0); MEAN CORPUSCULAR HGB CONC 29.9 g/dl (32.0-37.0); MEAN CORPUSCULAR VOLUME 91.8 fl (82.0-101.0); MEAN PLATELET VOLUME 12.5 fl (7.4-10.4); MONOCYTE # 0.3 10^3/ul (0.3-0.9); MONOCYTES % 3.3 % (0.0-11.0); NEUTROPHIL # 5.7 10^3/ul (1.6-7.5); NEUTROPHILS % 67.5 % (39.0-77.0); PLATELET COUNT 155 10^3/UL (140-415); RED BLOOD COUNT 2.55 10^6/ul (4.70-6.10); WHITE BLOOD COUNT 8.5 10^3/ul (4.8-10.8)
[2017-01-18] MEDS: PIPERACILLIN/TAZO 2.25 GM in DEXTROSE 5% 50 ML IVPB SCH ×4 (04:32→21:36)
[2017-01-18 05:03] LABS: CALCIUM 7.9 mg/dl (8.4-10.2); CREATININE 1.39 mg/dl (0.61-1.24); POTASSIUM 3.6 mmol/L (3.5-5.1)
[2017-01-18] MEDS: PROPOFOL 100 ML IV SCH ×2 (07:23→15:21)
[2017-01-18] MEDS: FAMOTIDINE 20 MG INJ IV SCH (08:26)
[2017-01-18] MEDS: ENOXAPARIN 30 MG/0.3 ML SYG SC SCH (08:27)
--- NOTE | 2017-01-18 08:50 | RADRPT ---
PROCEDURE: XR Chest 1 View. CLINICAL INDICATION: Shortness of breath. TECHNIQUE: AP view of the chest was obtained. COMPARISON: CHEST 01/16/2017 FINDINGS: The cardiomediastinal silhouette is within normal limits. Endotracheal tube is stable and appears in grossly appropriate location. Right-sided central line is unchanged. Patchy right lower lobe infilt rates, combined with small pleural effusion are stable. Left basilar atelectasis versus mild infiltr ates are unchanged. Calcified granulomas in the left lower lobe are unchanged. Osseous structures ar e intact. IMPRESSION: Stable patchy right lower lobe infiltrates, combined small pleural effusion. Stable left basilar atelectasis versus mild infiltrates. Calcified granulomatous disease in the left lower lobe. RPTAT: AA .Napoleon Holland MD, Date Time Electronically viewed and signed by .Napoleon Holland MD, MD on 01/18/2017 08:50 .P/
[2017-01-18] MEDS ORDERED: FENTAnyl (DRIP) 1000 mcg/100mL 100 ML IV SCH (10:00)
[2017-01-18 10:03] LABS: AADO2 Arterial 86.8 mmHg (7.0-24.0); Allen Test ACCEPTAB; Arterial Base Excess -3.9 mmol/L (-3.0-3); Arterial COHb 0.3 % (0.0-3.0); Arterial Fraction of Oxyhgb 96.9 % (93.0-99.0); Arterial HCO3 19.5 mmol/L (22.0-26.0); Arterial MetHb 0.3 % (0.0-1.5); Arterial Total Hemglobin 7.9 g/dl (12.0-18.0); MODE VENT - AC
--- NOTE | 2017-01-18 10:50 | CONS ---
Date/Time of Note Date/Time of Note DATE: 01/18/17 TIME: 10:48 Consult Date/Type/Reason Admit Date/Time Jan 16, 2017 at 05:58 Initial Consult Date 01/16/17 Type of Consultation: Pulmonary/critical care Subjective Remains intubated sedated on mechanical ventilation. His significant agitation off sedation.Currently hemodynamically stable. Objective Vital Signs Date Time Temp Pulse Resp B/P Pulse Ox O2 Delivery O2 Flow Rate FiO2 01/18/17 09:00 30 01/18/17 08:45 72 37 99 01/18/17 08:30 114/68 01/18/17 07:00 98.8 01/18/17 04:00 Mechanical Ventilator Intake and Output 01/17/17 01/17/17 01/18/17 15:00 23:00 07:00 Intake Total 1308.6 ml 858 ml 1438 ml Output Total 430 ml 385 ml 250 ml Balance 878.6 ml 473 ml 1188 ml Exam PHYSICAL EXAMINATION GENERAL: Elderly gentleman, intubated on mechanical ventilation, opens eyes and appears somewhat agitated. Orally intubated. VITAL SIGNS: see below. HEENT: Pupils equal, round, and reactive to light. CARDIAC: S1, S2, 2/6 systolic ejection murmur CHEST: Diminished air entry bilaterally. ABDOMEN: Mildly distended. Bowel sounds present no guarding or rebound EXTREMITIES: No cyanosis, clubbing edema +1 NEUROLOGIC: Generalized weakness Results/Medications Result Diagram: 01/18/17 0320 01/18/17 0320 Results 24 hrs Laboratory Tests Test 01/17/17 16:10 01/17/17 21:57 01/18/17 03:20 01/18/17 09:28 Sodium Level 154 H 150 H 151 H Potassium Level 3.6 3.6 3.6 Chloride Level 128 H 125 H 126 H Carbon Dioxide Level 23 22 20 L Anion Gap 7 L 7 L 9 Blood Urea Nitrogen 43 H 39 H 37 H Creatinine 1.46 H 1.45 H 1.39 H Glucose Level 130 145 150 Calcium Level 8.2 L 8.0 L 7.9 L White Blood Count 8.5 # Red Blood Count 2.55 L Hemoglobin 7.0 L Hematocrit 23.4 L Mean Corpuscular Volume 91.8 Mean Corpuscular Hemoglobin 27.5 L Mean Corpuscular Hemoglobin Concent 29.9 L Red Cell Distribution Width 19.0 H Platelet Count 155 Mean Platelet Volume 12.5 H Neutrophils % 67.5 Lymphocytes % 16.4 Monocytes % 3.3 Eosinophils % 12.0 H Basophils % 0.2 Nucleated Red Blood Cells % 0.0 Neutrophils # 5.7 Lymphocytes # 1.4 Monocytes # 0.3 Eosinophils # 1.0 H Basophils # 0.0 Nucleated Red Blood Cells # 0.0 Phosphorus Level 2.8 Magnesium Level 2.3 Blood Gas Specimen Source Blood arterial Arterial Blood Date Drawn 01/18/2017 9:40:46 AM Arterial Blood pH (Temp corrected) 7.452 H Arterial Blood pCO2 (Temp correct) 28.5 L Arterial Blood pO2 (Temp corrected) 93.6 H Arterial Blood HCO3 19.5 L Arterial Blood Base Excess -3.9 L Arterial Blood Oxygen Saturation 97.5 Keith Test ACCEPTAB Arterial Blood Gas Puncture Site Right Radial Arterial Blood Carboxyhemoglobin 0.3 Arterial Blood Methemoglobin 0.3 Blood Gas A-a O2 Differential 86.8 H Oxyhemoglobin Percent 96.9 Total Hemoglobin 7.9 L Blood Gas Temperature 37.0 Blood Gas Respiration Rate 20.0 Blood Gas Actual Respiration Rate 28 Blood Gas Modality VENT - AC FiO2 30.0 Blood Gas Tidal Volume 500.0 Blood Gas Low PEEP Setting 5.0 Blood Gas Notified Whom JLD Blood Gas Notified Time 01/18/2017 10:03:36 AM Medications Current Medications Ondansetron HCl (Zofran Inj) 4 mg Q6H PRN IV NAUSEA AND/OR VOMITING; Start at 06:00 Acetaminophen (Tylenol Supp) 650 mg Q4H PRN [place] PAIN LEVEL 1-3 OR FEVER; Start 01/16/17 at 06:00 Enoxaparin Sodium (Lovenox) 30 mg DAILY SC Last administered on 01/18/17 08:27 ; Admin Dose 30 MG; Start 01/16/17 at 09:00 Famotidine 20 mg 20 mg DAILY IV Last administered on 01/18/17 08:26; Admin Dose 20 MG; Start 01/17/17 at 09:00 Vancomycin HCl 750 mg/Dextrose/ Water 150 ml @ 75 mls/hr Q24H IVPB Last administered on 01/17/17 10:50; Admin Dose 75 MLS/HR; Start 01/17/17 at 12:00 Propofol 100 ml @ 2.16 mls/hr Q12H IV Last administered on 01/18/17 07:23; Admin Dose 10.8 MLS/HR; Start 01/16/17 at 12:00 Sodium Chloride 1,000 ml @ 70 mls/hr [id number] IV Last administered on 06:27; Admin Dose 70 MLS/HR; Start 01/16/17 at 16:30; Status Future Hold Piperacillin Sod/ Tazobactam Sod 2.25 gm/Dextrose 50 ml @ 100 mls/hr Q6H IVPB Last administered on 01/18/17 08:26; Admin Dose 100 MLS/HR; Start 01/16/17 at 22:00 Dextrose 1,000 ml @ 100 mls/hr Q10H IV Last administered on 01/18/17 02:30; Admin Dose 100 MLS/HR; Start 01/17/17 at 16:30 Fentanyl (Sublimaze) 100 ml @ 2.5 mls/hr TITRATE IV ; Start 01/18/17 at 10:00 Assessment/Plan Chief Complaint/Hosp Course Assessment 1. Patient admitted with bilateral pneumonia leading to respiratory failure. 2. Severe intravascular volume depletion with severe hypernatremia. 3. Dementia. 4. History of chronic dysphagia, status post G-tube placement in the past. 5. History of CABG. 6. Chronic renal insufficiency. 7. Anemia and mild thrombocytopenia. 8. Episodes of ventricular tachycardia, corrected by potassium replacement. Plan 1. Continue mechanical ventilation 2. Continue tube feeding as tolerated 3. I will discuss with family regarding goals of care is overall prognosis is guarded 4. Continue DVT and GI prophylaxis Critical care time 40 minutes. Problems: PURNIMA MANE MD, [facility] Jan 18, 2017 10:50
[2017-01-18] MEDS: VANCOMYCIN 750 MG in DEXTROSE 5% 150 ML IVPB SCH (11:18)
--- NOTE | 2017-01-18 13:58 | PN ---
Date/Time of Note Date/Time of Note DATE: 01/18/17 TIME: 13:53 Assessment/Plan VTE Prophylaxis VTE Prophylaxis Intervention: LMWH Assessment/Plan Chief Complaint/Hosp Course 81 yo male with advanced Alzheimer's and vascular dementia, CAD s/p CABG, recurrent aspiration pneumonias, PEG tube for dysphagia NH resident who presents with sepsis from aspiration pneumonia and hypernatremia requiring intubation for acute hypoxic respiratory failure 2/2 health care associated pneumonia PULM: Acute hypoxic respiratory failure - Continue MV, wean off as able -Pulmonary consult appreciate ID: Aspiration/healthcare associated pneumonia, severe sepsis: - Continue vanco/zosyn - Sputum culture - Blood cultures pending RENAL: Hypernatremia and JOSLYN - D5W to correct FW deficit slowly - s/p NS boluses to restore euvolemia - Trend electrolytes - Unclear baseline creatinine but resolving NEURO: Alzheimers and vascular dementia - Stable CV: Hypertension CAD s/p CABG - Aspirin and statin - Hold antihypertensives for now DMII: - Insulin gtt Prophylaxis: Lovenox Overall patient with dismal snf prognosis. Patient and step daughter are aware of this and have discussed hospice previously. They are not willing to change goals of care at this time. Remains full code. Readdress daily Problems: Subjective 24 Hr Interval Summary Subjective hx not possible: pt non-verbal Exam/Review of Systems Vital Signs Vitals Vital Signs Date Time Temp Pulse Resp B/P Pulse Ox O2 Delivery O2 Flow Rate FiO2 01/18/17 12:00 67 01/18/17 12:00 29 120/72 97 01/18/17 11:00 98.4 01/18/17 09:00 30 01/18/17 04:00 Mechanical Ventilator Intake and Output 01/17/17 01/17/17 01/18/17 15:00 23:00 07:00 Intake Total 1308.6 ml 858 ml 1438 ml Output Total 430 ml 385 ml 250 ml Balance 878.6 ml 473 ml 1188 ml Exam Constitutional: non-verbal ENMT: intubated Respiratory: clear to auscultation Cardiovascular: regular rate and rhythm Gastrointestinal: soft, No distended Musculoskeletal: nl extremities to inspection Results Result Diagram: 01/18/17 0320 01/18/17 0320 Results 24 hrs Laboratory Tests Test 01/17/17 16:10 01/17/17 21:57 01/18/17 03:20 01/18/17 09:28 Sodium Level 154 H 150 H 151 H Potassium Level 3.6 3.6 3.6 Chloride Level 128 H 125 H 126 H Carbon Dioxide Level 23 22 20 L Anion Gap 7 L 7 L 9 Blood Urea Nitrogen 43 H 39 H 37 H Creatinine 1.46 H 1.45 H 1.39 H Glucose Level 130 145 150 Calcium Level 8.2 L 8.0 L 7.9 L White Blood Count 8.5 # Red Blood Count 2.55 L Hemoglobin 7.0 L Hematocrit 23.4 L Mean Corpuscular Volume 91.8 Mean Corpuscular Hemoglobin 27.5 L Mean Corpuscular Hemoglobin Concent 29.9 L Red Cell Distribution Width 19.0 H Platelet Count 155 Mean Platelet Volume 12.5 H Neutrophils % 67.5 Lymphocytes % 16.4 Monocytes % 3.3 Eosinophils % 12.0 H Basophils % 0.2 Nucleated Red Blood Cells % 0.0 Neutrophils # 5.7 Lymphocytes # 1.4 Monocytes # 0.3 Eosinophils # 1.0 H Basophils # 0.0 Nucleated Red Blood Cells # 0.0 Phosphorus Level 2.8 Magnesium Level 2.3 Blood Gas Specimen Source Blood arterial Arterial Blood Date Drawn 01/18/2017 9:40:46 AM Arterial Blood pH (Temp corrected) 7.452 H Arterial Blood pCO2 (Temp correct) 28.5 L Arterial Blood pO2 (Temp corrected) 93.6 H Arterial Blood HCO3 19.5 L Arterial Blood Base Excess -3.9 L Arterial Blood Oxygen Saturation 97.5 Keith Test ACCEPTAB Arterial Blood Gas Puncture Site Right Radial Arterial Blood Carboxyhemoglobin 0.3 Arterial Blood Methemoglobin 0.3 Blood Gas A-a O2 Differential 86.8 H Oxyhemoglobin Percent 96.9 Total Hemoglobin 7.9 L Blood Gas Temperature 37.0 Blood Gas Respiration Rate 20.0 Blood Gas Actual Respiration Rate 28 Blood Gas Modality VENT - AC FiO2 30.0 Blood Gas Tidal Volume 500.0 Blood Gas Low PEEP Setting 5.0 Blood Gas Notified Whom JLD Blood Gas Notified Time 01/18/2017 10:03:36 AM Medications Medications Current Medications Ondansetron HCl (Zofran Inj) 4 mg Q6H PRN IV NAUSEA AND/OR VOMITING; Start at 06:00 Acetaminophen (Tylenol Supp) 650 mg Q4H PRN [place] PAIN LEVEL 1-3 OR FEVER; Start 01/16/17 at 06:00 Enoxaparin Sodium (Lovenox) 30 mg DAILY SC Last administered on 01/18/17 08:27 ; Admin Dose 30 MG; Start 01/16/17 at 09:00 Famotidine 20 mg 20 mg DAILY IV Last administered on 01/18/17 08:26; Admin Dose 20 MG; Start 01/17/17 at 09:00 Vancomycin HCl 750 mg/Dextrose/ Water 150 ml @ 75 mls/hr Q24H IVPB Last administered on 01/18/17 11:18; Admin Dose 75 MLS/HR; Start 01/17/17 at 12:00 Propofol 100 ml @ 2.16 mls/hr Q12H IV Last administered on 01/18/17 07:23; Admin Dose 10.8 MLS/HR; Start 01/16/17 at 12:00 Sodium Chloride 1,000 ml @ 70 mls/hr [id number] IV Last administered on 06:27; Admin Dose 70 MLS/HR; Start 01/16/17 at 16:30; Status Future Hold Piperacillin Sod/ Tazobactam Sod 2.25 gm/Dextrose 50 ml @ 100 mls/hr Q6H IVPB Last administered on 01/18/17 08:26; Admin Dose 100 MLS/HR; Start 01/16/17 at 22:00 Dextrose 1,000 ml @ 100 mls/hr Q10H IV Last administered on 01/18/17 02:30; Admin Dose 100 MLS/HR; Start 01/17/17 at 16:30 Fentanyl (Sublimaze) 100 ml @ 2.5 mls/hr TITRATE IV ; Start 01/18/17 at 10:00 Miscellaneous Information VANCOMYCIN TROUGH AT 1100 ONCE ONCE XX ; Start 01/19/17 at 11:00; Stop 01/19/17 at 11:01 Potassium Chloride (KCl 40 MEQ/250 ML NS) 250 ml @ 62.5 mls/hr ONCE ONCE IVPB ; Start 01/18/17 at 14:00; Stop 01/18/17 at 17:59; Status UNV SEBLE BENJAMIN Jan 18, 2017 13:58
[2017-01-18] MEDS ORDERED: POTASSIUM CHLORIDE 250 ML IVPB ONE (14:00)
[2017-01-19] VITALS (58 sets, daily range): BP systolic 101–140; BP diastolic 58–104; PULSE 66–81; RESP 16–38
[2017-01-19] MEDS: PROPOFOL 100 ML IV SCH ×2 (00:27→12:50)
[2017-01-19] MEDS: DEXTROSE 5% 1,000 ML IV SCH ×2 (03:12→16:28)
[2017-01-19] MEDS: PIPERACILLIN/TAZO 2.25 GM in DEXTROSE 5% 50 ML IVPB SCH ×3 (04:00→16:25)
[2017-01-19 05:16] LABS: ABNORMAL IP MESSAGE 1; EOSINOPHILS # 0.9 10^3/ul (0.0-0.5); EOSINOPHILS % 12.7 % (0.0-7.0); LYMPHOCYTES # 1.1 10^3/ul (0.8-2.9); LYMPHOCYTES % 15.8 % (15.0-51.0); MEAN CORPUSCULAR HEMOGLOBIN 27.6 pg (29.0-33.0); MEAN PLATELET VOLUME 12.2 fl (7.4-10.4); MONOCYTE # 0.4 10^3/ul (0.3-0.9); MONOCYTES % 5.6 % (0.0-11.0); NEUTROPHIL # 4.5 10^3/ul (1.6-7.5); NEUTROPHILS % 65.3 % (39.0-77.0); PLATELET COUNT 147 10^3/UL (140-415); POSITIVE DIFF @See below
[2017-01-19 05:42] LABS: CALCIUM 7.9 mg/dl (8.4-10.2); CREATININE 1.28 mg/dl (0.61-1.24); MAGNESIUM 2.3 mg/dl (1.7-2.5)
[2017-01-19 05:59] LABS: HEMOGLOBIN 6.9 g/dl (14.0-18.0)
[2017-01-19 08:17] LABS: AADO2 Arterial 80.2 mmHg (7.0-24.0); Allen Test ACCEPTAB; Arterial Base Excess -2.9 mmol/L (-3.0-3); Arterial COHb 0.3 % (0.0-3.0); Arterial Fraction of Oxyhgb 96.8 % (93.0-99.0); Arterial HCO3 20.6 mmol/L (22.0-26.0); Arterial MetHb 0.3 % (0.0-1.5); Arterial Total Hemglobin 7.8 g/dl (12.0-18.0); MODE VENT - AC
--- NOTE | 2017-01-19 09:01 | RADRPT ---
PROCEDURE: XR Chest. CLINICAL INDICATION: Shortness of breath. TECHNIQUE: Single frontal view. COMPARISON: 01/18/2017. FINDINGS: The endotracheal tube and right internal jugular vein catheter remain in satisfactory position. Ther e is mild atelectasis at the lung bases with right worse than left. There is a benign calcified gran uloma in left lower lung zone laterally. The lungs are otherwise clear. The heart size is normal. There are sternal wires. There is no pleural effusion. There is no pneumothorax. IMPRESSION: 1. No change from 01/18/2017. RPTAT: QQ .Wisam Bolaños MD, MD Date Time Electronically viewed and signed by .Wisam Bolaños MD, on 01/19/2017 09:01 .R/
[2017-01-19] MEDS: FAMOTIDINE 20 MG INJ IV SCH (09:21)
[2017-01-19] MEDS: ENOXAPARIN 30 MG/0.3 ML SYG SC SCH (09:22)
--- NOTE | 2017-01-19 09:55 | CONS ---
Date/Time of Note Date/Time of Note DATE: 01/19/17 TIME: 09:54 Consult Date/Type/Reason Admit Date/Time Jan 16, 2017 at 05:58 Initial Consult Date 01/16/17 Type of Consultation: Pulmonary/critical care Subjective Patient remains intubated sedated on mechanical ventilation. Moderate agitation off sedation. Currently hemodynamically stable. Minimal secretions. Chest x-ray shows patchy infiltrates. Objective Vital Signs Date Time Temp Pulse Resp B/P Pulse Ox O2 Delivery O2 Flow Rate FiO2 01/19/17 08:00 75 01/19/17 08:00 97.9 31 107/59 98 Mechanical Ventilator 01/19/17 05:21 30 Intake and Output 01/18/17 01/18/17 01/19/17 15:00 23:00 07:00 Intake Total 974.6 ml 1659.768 ml 2063.808 ml Output Total 900 ml 1250 ml 1250 ml Balance 74.6 ml 409.768 ml 813.808 ml Exam PHYSICAL EXAMINATION GENERAL: Elderly gentleman, intubated on mechanical ventilation, opens eyes and appears somewhat agitated. Orally intubated. VITAL SIGNS: see below. HEENT: Pupils equal, round, and reactive to light. CARDIAC: S1, S2, 2/6 systolic ejection murmur CHEST: Diminished air entry bilaterally. ABDOMEN: Mildly distended. Bowel sounds present no guarding or rebound EXTREMITIES: No cyanosis, clubbing edema +1 NEUROLOGIC: Generalized weakness Results/Medications Result Diagram: 01/19/17 0400 01/19/17 0400 Results 24 hrs Laboratory Tests Test 01/19/17 04:00 01/19/17 07:00 White Blood Count 7.0 Red Blood Count 2.50 L Hemoglobin 6.9 *L Hematocrit 23.0 L Mean Corpuscular Volume 92.0 Mean Corpuscular Hemoglobin 27.6 L Mean Corpuscular Hemoglobin Concent 30.0 L Red Cell Distribution Width 19.0 H Platelet Count 147 Mean Platelet Volume 12.2 H Neutrophils % 65.3 Lymphocytes % 15.8 Monocytes % 5.6 Eosinophils % 12.7 H Basophils % 0.0 Nucleated Red Blood Cells % 0.0 Neutrophils # 4.5 Lymphocytes # 1.1 Monocytes # 0.4 Eosinophils # 0.9 H Basophils # 0.0 Nucleated Red Blood Cells # 0.0 Sodium Level 150 H Potassium Level 4.0 Chloride Level 122 H Carbon Dioxide Level 23 Anion Gap 9 Blood Urea Nitrogen 28 H Creatinine 1.28 H Glucose Level 144 Calcium Level 7.9 L Magnesium Level 2.3 Blood Gas Specimen Source Blood arterial Arterial Blood Date Drawn 01/19/2017 7:40:39 AM Arterial Blood pH (Temp corrected) 7.452 H Arterial Blood pCO2 (Temp correct) 30.2 L Arterial Blood pO2 (Temp corrected) 98.2 H Arterial Blood HCO3 20.6 L Arterial Blood Base Excess -2.9 Arterial Blood Oxygen Saturation 97.4 Keith Test ACCEPTAB Arterial Blood Gas Puncture Site Right Radial Arterial Blood Carboxyhemoglobin 0.3 Arterial Blood Methemoglobin 0.3 Blood Gas A-a O2 Differential 80.2 H Oxyhemoglobin Percent 96.8 Total Hemoglobin 7.8 L Blood Gas Temperature 37.0 Blood Gas Respiration Rate 20.0 Blood Gas Actual Respiration Rate 21 Blood Gas Modality VENT - AC FiO2 30.0 Blood Gas Tidal Volume 500.0 Blood Gas Low PEEP Setting 5.0 Blood Gas Notified Whom JLD Blood Gas Notified Time 01/19/2017 8:17:24 AM Medications Current Medications Ondansetron HCl (Zofran Inj) 4 mg Q6H PRN IV NAUSEA AND/OR VOMITING; Start at 06:00 Acetaminophen (Tylenol Supp) 650 mg Q4H PRN [place] PAIN LEVEL 1-3 OR FEVER; Start 01/16/17 at 06:00 Enoxaparin Sodium (Lovenox) 30 mg DAILY SC Last administered on 01/19/17 09:22 ; Admin Dose 30 MG; Start 01/16/17 at 09:00 Famotidine 20 mg 20 mg DAILY IV Last administered on 01/19/17 09:21; Admin Dose 20 MG; Start 01/17/17 at 09:00 Vancomycin HCl 750 mg/Dextrose/ Water 150 ml @ 75 mls/hr Q24H IVPB Last administered on 01/18/17 11:18; Admin Dose 75 MLS/HR; Start 01/17/17 at 12:00 Propofol 100 ml @ 2.16 mls/hr Q12H IV Last administered on 01/19/17 00:27; Admin Dose 9.504 MLS/HR; Start 01/16/17 at 12:00 Sodium Chloride 1,000 ml @ 70 mls/hr [id number] IV Last administered on 06:27; Admin Dose 70 MLS/HR; Start 01/16/17 at 16:30; Status Future Hold Piperacillin Sod/ Tazobactam Sod 2.25 gm/Dextrose 50 ml @ 100 mls/hr Q6H IVPB Last administered on 01/19/17 04:00; Admin Dose 100 MLS/HR; Start 01/16/17 at 22:00 Dextrose 1,000 ml @ 100 mls/hr Q10H IV Last administered on 01/19/17 03:12; Admin Dose 100 MLS/HR; Start 01/17/17 at 16:30 Fentanyl (Sublimaze) 100 ml @ 2.5 mls/hr TITRATE IV ; Start 01/18/17 at 10:00 Miscellaneous Information (*Rx Drug Level Order Reminder*) VANCOMYCIN TROUGH AT 1100 ONCE ONCE XX ; Start 01/19/17 at 11:00; Stop 01/19/17 at 11:01 Assessment/Plan Chief Complaint/Hosp Course Assessment 1. Patient admitted with bilateral pneumonia leading to respiratory failure. 2. Severe intravascular volume depletion with severe hypernatremia. 3. Dementia. 4. History of chronic dysphagia, status post G-tube placement in the past. 5. History of CABG. 6. Chronic renal insufficiency. Hyponatremia likely free water deficit. 7. Anemia and mild thrombocytopenia.Questionable GI bleed with low hemoglobin. 8. Episodes of ventricular tachycardia, corrected by potassium replacement. Plan 1. Continue mechanical ventilation, CPAP trial. 2. Continue tube feeding as tolerated increase free water. 3. Transfuse 1 unit packed red blood cells 4. Continue DVT and GI prophylaxis Critical care time 40 minutes. Problems: PURNIMA MANE MD, [facility] Jan 19, 2017 09:55
[2017-01-19] MEDS: VANCOMYCIN 750 MG in DEXTROSE 5% 150 ML IVPB SCH (12:45)
--- NOTE | 2017-01-19 14:38 | PN ---
Date/Time of Note Date/Time of Note DATE: 01/19/17 TIME: 14:32 Assessment/Plan VTE Prophylaxis VTE Prophylaxis Intervention: LMWH Assessment/Plan Chief Complaint/Hosp Course 81 yo male with advanced Alzheimer's and vascular dementia, CAD s/p CABG, recurrent aspiration pneumonias, PEG tube for dysphagia NH resident who presents with sepsis from aspiration pneumonia and hypernatremia requiring intubation for acute hypoxic respiratory failure 2/2 health care associated pneumonia PULM: Acute hypoxic respiratory failure - Continue MV, wean off as able -Pulmonary following ID: Aspiration/healthcare associated pneumonia, severe sepsis: - Continue vanco/zosyn - Sputum culture - Blood and urine cultures were negative at this time - ID consultation RENAL: Hypernatremia and JOSLYN - D5W to correct FW deficit slowly - s/p NS boluses to restore euvolemia - Trend electrolytes - Unclear baseline creatinine but resolving -Nephrology consultation obtained NEURO: Alzheimers and vascular dementia - Stable CV: Hypertension CAD s/p CABG - Aspirin and statin - Hold antihypertensives for now DMII: - Insulin gtt Prophylaxis: Lovenox 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 Patient and step daughter are aware of this and have discussed hospice previously. They are not willing to change goals of care at this time. Remains full code. Readdress daily Problems: Subjective 24 Hr Interval Summary Subjective hx not possible: pt non-verbal Exam/Review of Systems Vital Signs Vitals Vital Signs Date Time Temp Pulse Resp B/P Pulse Ox O2 Delivery O2 Flow Rate FiO2 01/19/17 13:00 71 26 127/76 98 Mechanical Ventilator 01/19/17 12:00 98.3 01/19/17 10:55 30 Intake and Output 01/18/17 01/18/17 01/19/17 15:00 23:00 07:00 Intake Total 974.6 ml 1659.768 ml 2063.808 ml Output Total 900 ml 1250 ml 1250 ml Balance 74.6 ml 409.768 ml 813.808 ml Exam Constitutional: non-verbal ENMT: intubated Respiratory: clear to auscultation Cardiovascular: regular rate and rhythm Gastrointestinal: soft, No distended Musculoskeletal: nl extremities to inspection Results Result Diagram: 01/19/17 0400 01/19/17 0400 Results 24 hrs Laboratory Tests Test 01/19/17 04:00 01/19/17 07:00 01/19/17 11:06 White Blood Count 7.0 Red Blood Count 2.50 L Hemoglobin 6.9 *L Hematocrit 23.0 L Mean Corpuscular Volume 92.0 Mean Corpuscular Hemoglobin 27.6 L Mean Corpuscular Hemoglobin Concent 30.0 L Red Cell Distribution Width 19.0 H Platelet Count 147 Mean Platelet Volume 12.2 H Neutrophils % 65.3 Lymphocytes % 15.8 Monocytes % 5.6 Eosinophils % 12.7 H Basophils % 0.0 Nucleated Red Blood Cells % 0.0 Neutrophils # 4.5 Lymphocytes # 1.1 Monocytes # 0.4 Eosinophils # 0.9 H Basophils # 0.0 Nucleated Red Blood Cells # 0.0 Sodium Level 150 H Potassium Level 4.0 Chloride Level 122 H Carbon Dioxide Level 23 Anion Gap 9 Blood Urea Nitrogen 28 H Creatinine 1.28 H Glucose Level 144 Calcium Level 7.9 L Magnesium Level 2.3 Blood Gas Specimen Source Blood arterial Arterial Blood Date Drawn 01/19/2017 7:40:39 AM Arterial Blood pH (Temp corrected) 7.452 H Arterial Blood pCO2 (Temp correct) 30.2 L Arterial Blood pO2 (Temp corrected) 98.2 H Arterial Blood HCO3 20.6 L Arterial Blood Base Excess -2.9 Arterial Blood Oxygen Saturation 97.4 Keith Test ACCEPTAB Arterial Blood Gas Puncture Site Right Radial Arterial Blood Carboxyhemoglobin 0.3 Arterial Blood Methemoglobin 0.3 Blood Gas A-a O2 Differential 80.2 H Oxyhemoglobin Percent 96.8 Total Hemoglobin 7.8 L Blood Gas Temperature 37.0 Blood Gas Respiration Rate 20.0 Blood Gas Actual Respiration Rate 21 Blood Gas Modality VENT - AC FiO2 30.0 Blood Gas Tidal Volume 500.0 Blood Gas Low PEEP Setting 5.0 Blood Gas Notified Whom JLD Blood Gas Notified Time 01/19/2017 8:17:24 AM Vancomycin Level Trough 13.1 Medications Medications Current Medications Ondansetron HCl (Zofran Inj) 4 mg Q6H PRN IV NAUSEA AND/OR VOMITING; Start at 06:00 Acetaminophen (Tylenol Supp) 650 mg Q4H PRN [place] PAIN LEVEL 1-3 OR FEVER; Start 01/16/17 at 06:00 Enoxaparin Sodium (Lovenox) 30 mg DAILY SC Last administered on 01/19/17t 09:22 ; Admin Dose 30 MG; Start 01/16/17 at 09:00 Famotidine 20 mg 20 mg DAILY IV Last administered on 01/19/17 09:21; Admin Dose 20 MG; Start 01/17/17 at 09:00 Vancomycin HCl 750 mg/Dextrose/ Water 150 ml @ 75 mls/hr Q24H IVPB Last administered on 01/19/17 12:45; Admin Dose 75 MLS/HR; Start 01/17/17 at 12:00 Propofol 100 ml @ 2.16 mls/hr Q12H IV Last administered on 01/19/17 12:50; Admin Dose 5.184 MLS/HR; Start 01/16/17 at 12:00 Piperacillin Sod/ Tazobactam Sod 2.25 gm/Dextrose 50 ml @ 100 mls/hr Q6H IVPB Last administered on 01/19/17 10:52; Admin Dose 100 MLS/HR; Start 01/16/17 at 22:00 Dextrose 1,000 ml @ 100 mls/hr Q10H IV Last administered on 01/19/17 03:12; Admin Dose 100 MLS/HR; Start 01/17/17 at 16:30 Fentanyl (Sublimaze) 100 ml @ 2.5 mls/hr TITRATE IV ; Start 01/18/17 at 10:00 SEBLE BENJAMIN Jan 19, 2017 14:38
--- NOTE | 2017-01-19 17:50 | CONS ---
DATE OF ADMISSION: 01/16/2017 DATE OF CONSULTATION: 01/19/2017 REASON FOR CONSULTATION: Antibiotic management. HISTORY OF PRESENT ILLNESS: Navjot Patel is an unfortunate 81- year-old white male with advanced Alzheimer disease and vascular dementia who comes in now with probable aspiration pneumonia and is being seen for antibiotic management. His past problems include: 1. Advanced Alzheimer dementia. 2. Vascular dementia. 3. Coronary artery disease status post coronary artery bypass graft. 4. Recurrent aspiration pneumonia. 5. Status post CVA with left-sided weakness. 6. Dysphagia, status post G-tube placement. Acutely, the patient comes in with sepsis. He was discharged from [facility] for pneumonia treated with Levaquin, but now has worsening hypoxemia and was admitted to the intensive care unit. The patient also has COPD/emphysema. On admission, his white count was 21.8. H and H 11.5, 38.6, platelet count 347,000. His BUN, creatinine was 64/1.57 and his sodium was 166, significant for severe dehydration. The patient was started on vancomycin and Zosyn. Blood cultures have been negative. Urine culture is negative. MRSA, he has methicillin- resistant Staph aureus. His white count today is down to 7.0. His urine is negative for nitrite and leukocyte esterase. His sodium is down to 150, BUN and creatinine is 28/1.28. Chest x- ray shows an ET tube, right internal jugular venous catheter, mild atelectasis at the lung bases, right greater than left. Benign calcified granuloma in the left lower lung zone. Heart is within normal limits. HOSPITAL COURSE: Patient has been seen by Dr. Mckinney and the hospitalist. PAST MEDICAL HISTORY: Operations as outlined. FAMILY HISTORY: Noncontributory. SOCIAL HISTORY: Does not smoke, drink, or abuse drugs. ALLERGIES: NONE TO PENICILLIN, SULFA, OR FOODS. MEDICATION: Per chart. REVIEW OF SYSTEMS: As per history of present illness. PHYSICAL EXAMINATION: GENERAL: Patient is a well-developed, well-nourished, male who is sedated and intubated in no obvious distress. VITAL SIGNS: Stable. He is afebrile. SKIN: Without generalized rash. HEENT: He has an ET tube, otherwise within normal limits. NECK: Supple. Lymph nodes nonpalpable. CHEST: Decreased breath sounds at the bases. HEART: Without murmur or gallop. ABDOMEN: Soft, nontender, without organosplenomegaly or masses. He has a G-tube in place. He also has a right internal jugular line. EXTREMITIES: Without cyanosis, clubbing, or edema. He has a Mcdonald catheter in place. RECTAL/GENITAL: Deferred. NEUROLOGICAL: The patient had a hemispheric left-sided CVA currently difficult to assess. IMPRESSION AND PLAN: The patient is an 81-year-old male, who currently presents with probable aspiration pneumonia. We are going to continue him on vancomycin and Zosyn. We should be able to get the sputum culture. I will dictate my findings to the hospitalist and to Dr. Mckinney. Dictated By: Law Paz MD JD/[email or web address]/bernice /Document#: [id number]
--- NOTE | 2017-01-19 18:55 | CONS ---
Date/Time of Note Date/Time of Note DATE: 01/19/17 TIME: 18:53 Assessment/Plan Assessment/Plan Additional Assessment/Plan 81 yo Male with 1) Severe Sepsis 2) Hypernatremia 3) Joslyn - Non oliguric improving 4) VDRF 5) Severe Anemia, S/p PRBC 6) Chronic HTN, Controlled Consultation Date/Type/Reason Admit Date/Time Jan 16, 2017 at 05:58 Date of Consultation: Jan 19, 2017 Type of Consultation: Renal Reason for Consultation JOSLYN, Hypernatremia Referring Provider: SEBLE BENJAMIN Subjective hx not possible: pt critical status Constitutional: requiring O2 Social History Smoking Status: Unknown if ever smoked Exam/Review of Systems Vital Signs Vitals Vital Signs Date Time Temp Pulse Resp B/P Pulse Ox O2 Delivery O2 Flow Rate FiO2 01/19/17 18:30 76 16 130/76 98 01/19/17 18:00 Mechanical Ventilator 01/19/17 17:15 30 01/19/17 16:00 97.9 Intake and Output 01/18/17 01/18/17 01/19/17 15:00 23:00 07:00 Intake Total 974.6 ml 1659.768 ml 2063.808 ml Output Total 900 ml 1250 ml 1250 ml Balance 74.6 ml 409.768 ml 813.808 ml Results Result Diagram: 01/19/17 0400 01/19/17 0400 Results 24 hrs Laboratory Tests Test 01/19/17 04:00 01/19/17 07:00 01/19/17 11:06 White Blood Count 7.0 Red Blood Count 2.50 L Hemoglobin 6.9 *L Hematocrit 23.0 L Mean Corpuscular Volume 92.0 Mean Corpuscular Hemoglobin 27.6 L Mean Corpuscular Hemoglobin Concent 30.0 L Red Cell Distribution Width 19.0 H Platelet Count 147 Mean Platelet Volume 12.2 H Neutrophils % 65.3 Lymphocytes % 15.8 Monocytes % 5.6 Eosinophils % 12.7 H Basophils % 0.0 Nucleated Red Blood Cells % 0.0 Neutrophils # 4.5 Lymphocytes # 1.1 Monocytes # 0.4 Eosinophils # 0.9 H Basophils # 0.0 Nucleated Red Blood Cells # 0.0 Sodium Level 150 H Potassium Level 4.0 Chloride Level 122 H Carbon Dioxide Level 23 Anion Gap 9 Blood Urea Nitrogen 28 H Creatinine 1.28 H Glucose Level 144 Calcium Level 7.9 L Magnesium Level 2.3 Blood Gas Specimen Source Blood arterial Arterial Blood Date Drawn 01/19/2017 7:40:39 AM Arterial Blood pH (Temp corrected) 7.452 H Arterial Blood pCO2 (Temp correct) 30.2 L Arterial Blood pO2 (Temp corrected) 98.2 H Arterial Blood HCO3 20.6 L Arterial Blood Base Excess -2.9 Arterial Blood Oxygen Saturation 97.4 Keith Test ACCEPTAB Arterial Blood Gas Puncture Site Right Radial Arterial Blood Carboxyhemoglobin 0.3 Arterial Blood Methemoglobin 0.3 Blood Gas A-a O2 Differential 80.2 H Oxyhemoglobin Percent 96.8 Total Hemoglobin 7.8 L Blood Gas Temperature 37.0 Blood Gas Respiration Rate 20.0 Blood Gas Actual Respiration Rate 21 Blood Gas Modality VENT - AC FiO2 30.0 Blood Gas Tidal Volume 500.0 Blood Gas Low PEEP Setting 5.0 Blood Gas Notified Whom JLD Blood Gas Notified Time 01/19/2017 8:17:24 AM Vancomycin Level Trough 13.1 Imaging Free Text/Dictation PROCEDURE: XR Chest. CLINICAL INDICATION: Shortness of breath. TECHNIQUE: Single frontal view. COMPARISON: 01/18/2017. FINDINGS: The endotracheal tube and right internal jugular vein catheter remain in satisfactory position. There is mild atelectasis at the lung bases with right worse than left. There is a benign calcified granuloma in left lower lung zone laterally. The lungs are otherwise clear. The heart size is normal. There are sternal wires. There is no pleural effusion. There is no pneumothorax. IMPRESSION: 1. No change from 01/18/2017. RPTAT: QQ .Wisam Bolaños MD, MD Date Time Electronically viewed and signed by .Wisam Bolaños MD, on 01/19/2017 09:01 Medications Medications Current Medications Ondansetron HCl (Zofran Inj) 4 mg Q6H PRN IV NAUSEA AND/OR VOMITING; Start at 06:00 Acetaminophen (Tylenol Supp) 650 mg Q4H PRN [place] PAIN LEVEL 1-3 OR FEVER; Start 01/16/17 at 06:00 Enoxaparin Sodium (Lovenox) 30 mg DAILY SC Last administered on 01/19/17 09:22 ; Admin Dose 30 MG; Start 01/16/17 at 09:00 Famotidine 20 mg 20 mg DAILY IV Last administered on 01/19/17 09:21; Admin Dose 20 MG; Start 01/17/17 at 09:00 Vancomycin HCl 750 mg/Dextrose/ Water 150 ml @ 75 mls/hr Q24H IVPB Last administered on 01/19/17 12:45; Admin Dose 75 MLS/HR; Start 01/17/17 at 12:00 Propofol 100 ml @ 2.16 mls/hr Q12H IV Last administered on 01/19/17 12:50; Admin Dose 5.184 MLS/HR; Start 01/16/17 at 12:00 Piperacillin Sod/ Tazobactam Sod 2.25 gm/Dextrose 50 ml @ 100 mls/hr Q6H IVPB Last administered on 01/19/17 16:25; Admin Dose 100 MLS/HR; Start 01/16/17 at 22:00; Stop 01/19/17 at 21:00 Dextrose 1,000 ml @ 100 mls/hr Q10H IV Last administered on 01/19/17 16:28; Admin Dose 100 MLS/HR; Start 01/17/17 at 16:30 Fentanyl (Sublimaze) 100 ml @ 2.5 mls/hr TITRATE IV ; Start 01/18/17 at 10:00 Mupirocin 1 applic 1 applic BID TOP ; Start 01/19/17 at 21:00 Piperacillin Sod/ Tazobactam Sod (Zosyn 2.25gm/ 50ml (Pmx)) 50 ml @ 100 mls/hr Q6H IVPB ; Start 01/19/17 at 22:00 RODERICK PALMA MD Jan 19, 2017 18:55
[2017-01-19] MEDS: MUPIROCIN 2% 22 GM OINT TOP SCH (20:48)
[2017-01-19] MEDS: PIPER-TAZO 2.25 GM (PMX) 50 ML IVPB SCH (21:21)
[2017-01-20] VITALS (49 sets, daily range): BP systolic 103–165; BP diastolic 63–99; PULSE 62–103; RESP 17–46
[2017-01-20] MEDS: PROPOFOL 100 ML IV SCH (02:15)
[2017-01-20] MEDS: DEXTROSE 5% 1,000 ML IV SCH ×2 (03:29→17:46)
[2017-01-20] MEDS: PIPER-TAZO 2.25 GM (PMX) 50 ML IVPB SCH ×4 (03:30→21:12)
[2017-01-20 05:24] LABS: BASOPHILS % 0.2 % (0.0-2.0); EOSINOPHILS # 0.7 10^3/ul (0.0-0.5); EOSINOPHILS % 11.8 % (0.0-7.0); HEMATOCRIT 24.7 % (42.0-52.0); HEMOGLOBIN 7.6 g/dl (14.0-18.0); LYMPHOCYTES # 1.4 10^3/ul (0.8-2.9); LYMPHOCYTES % 22.3 % (15.0-51.0); MEAN CORPUSCULAR HEMOGLOBIN 27.5 pg (29.0-33.0); MEAN CORPUSCULAR HGB CONC 30.8 g/dl (32.0-37.0); MEAN CORPUSCULAR VOLUME 89.5 fl (82.0-101.0); MEAN PLATELET VOLUME 12.6 fl (7.4-10.4); MONOCYTE # 0.5 10^3/ul (0.3-0.9); MONOCYTES % 7.3 % (0.0-11.0); NEUTROPHIL # 3.6 10^3/ul (1.6-7.5); NEUTROPHILS % 57.6 % (39.0-77.0); PLATELET COUNT 140 10^3/UL (140-415); RED BLOOD COUNT 2.76 10^6/ul (4.70-6.10); RED CELL DISTRIBUTION WIDTH 18.9 % (11.5-14.5); WHITE BLOOD COUNT 6.2 10^3/ul (4.8-10.8)
[2017-01-20 05:46] LABS: CALCIUM 8.1 mg/dl (8.4-10.2); CREATININE 1.27 mg/dl (0.61-1.24); MAGNESIUM 2.3 mg/dl (1.7-2.5); PHOSPHORUS 3.5 mg/dl (2.5-4.9); POTASSIUM 3.9 mmol/L (3.5-5.1)
--- NOTE | 2017-01-20 08:25 | RADRPT ---
PROCEDURE: XR Chest. CLINICAL INDICATION: Shortness of breath. TECHNIQUE: Single frontal view. COMPARISON: 01/19/2017. FINDINGS: The endotracheal tube and right internal jugular vein catheter are in satisfactory position. There i s mild atelectasis at the lung bases, unchanged. There is a benign calcified granuloma in the left l ower lobe laterally. The lungs are otherwise clear. The heart size is normal. There are sternal wires. There is no pleural effusion. There is no pneumothorax. IMPRESSION: 1. No change from 01/19/2017. RPTAT: QQ .Wisam Bolaños MD, MD Date Time Electronically viewed and signed by .Wisam Bolaños MD, MD on 01/20/2017 08:25 .R/
[2017-01-20] MEDS: FAMOTIDINE 20 MG INJ IV SCH (09:47)
[2017-01-20] MEDS: ENOXAPARIN 30 MG/0.3 ML SYG SC SCH (09:47)
[2017-01-20] MEDS: MUPIROCIN 2% 22 GM OINT TOP SCH ×2 (09:47→21:12)
--- NOTE | 2017-01-20 10:00 | CONS ---
Date/Time of Note Date/Time of Note DATE: 01/20/17 TIME: 09:59 Consult Date/Type/Reason Admit Date/Time Jan 16, 2017 at 05:58 Initial Consult Date 01/16/17 Type of Consultation: Pulmonary Ordering Provider: SEBLE BENJAMIN Subjective Patient remains mildly agitated off sedation. Minimal secretions. Hemodynamically stable. Unable to assess neurological status at present. Objective Vital Signs Date Time Temp Pulse Resp B/P Pulse Ox O2 Delivery O2 Flow Rate FiO2 01/20/17 08:00 74 01/20/17 06:00 20 123/69 99 Mechanical Ventilator 01/20/17 05:23 30 01/20/17 04:00 98.4 Intake and Output 01/19/17 01/19/17 01/20/17 15:00 23:00 07:00 Intake Total 1886.592 ml 1517.952 ml 1388.32 ml Output Total 1250 ml 1380 ml 975 ml Balance 636.592 ml 137.952 ml 413.32 ml Exam PHYSICAL EXAMINATION GENERAL: Elderly gentleman, intubated on mechanical ventilation, opens eyes and appears somewhat agitated. Orally intubated. VITAL SIGNS: see below. HEENT: Pupils equal, round, and reactive to light. CARDIAC: S1, S2, 2/6 systolic ejection murmur CHEST: Diminished air entry bilaterally. ABDOMEN: Mildly distended. Bowel sounds present no guarding or rebound EXTREMITIES: No cyanosis, clubbing edema +1 NEUROLOGIC: Generalized weakness Results/Medications Result Diagram: 01/20/17 0430 01/20/17 0430 Results 24 hrs Laboratory Tests Test 01/19/17 11:06 01/20/17 04:30 01/20/17 05:19 Vancomycin Level Trough 13.1 White Blood Count 6.2 Red Blood Count 2.76 L Hemoglobin 7.6 L Hematocrit 24.7 L Mean Corpuscular Volume 89.5 Mean Corpuscular Hemoglobin 27.5 L Mean Corpuscular Hemoglobin Concent 30.8 L Red Cell Distribution Width 18.9 H Platelet Count 140 Mean Platelet Volume 12.6 H Neutrophils % 57.6 Lymphocytes % 22.3 Monocytes % 7.3 Eosinophils % 11.8 H Basophils % 0.2 Nucleated Red Blood Cells % 0.0 Neutrophils # 3.6 Lymphocytes # 1.4 Monocytes # 0.5 Eosinophils # 0.7 H Basophils # 0.0 Nucleated Red Blood Cells # 0.0 Sodium Level 148 H Potassium Level 3.9 Chloride Level 119 H Carbon Dioxide Level 24 Anion Gap 9 Blood Urea Nitrogen 22 H Creatinine 1.27 H Glucose Level 159 Calcium Level 8.1 L Phosphorus Level 3.5 Magnesium Level 2.3 Lab Scanned Report BLOOD TRANSFUSION Medications Current Medications Ondansetron HCl (Zofran Inj) 4 mg Q6H PRN IV NAUSEA AND/OR VOMITING; Start at 06:00 Acetaminophen (Tylenol Supp) 650 mg Q4H PRN [place] PAIN LEVEL 1-3 OR FEVER; Start 01/16/17 at 06:00 Enoxaparin Sodium (Lovenox) 30 mg DAILY SC Last administered on 01/20/17 09:47 ; Admin Dose 30 MG; Start 01/16/17 at 09:00 Famotidine 20 mg 20 mg DAILY IV Last administered on 01/20/17 09:47; Admin Dose 20 MG; Start 01/17/17 at 09:00 Vancomycin HCl 750 mg/Dextrose/ Water 150 ml @ 75 mls/hr Q24H IVPB Last administered on 01/19/17 12:45; Admin Dose 75 MLS/HR; Start 01/17/17 at 12:00 Propofol 100 ml @ 2.16 mls/hr Q12H IV Last administered on 01/20/17 02:15; Admin Dose 6.48 MLS/HR; Start 01/16/17 at 12:00 Dextrose 1,000 ml @ 100 mls/hr Q10H IV Last administered on 01/20/17 03:29; Admin Dose 100 MLS/HR; Start 01/17/17 at 16:30 Fentanyl (Sublimaze) 100 ml @ 2.5 mls/hr TITRATE IV ; Start 01/18/17 at 10:00 Mupirocin 1 applic 1 applic BID TOP Last administered on 01/20/17 09:47; Admin Dose 1 APPLIC; Start 01/19/17 at 21:00 Piperacillin Sod/ Tazobactam Sod (Zosyn 2.25gm/ 50ml (Pmx)) 50 ml @ 100 mls/hr Q6H IVPB Last administered on 01/20/17 09:47; Admin Dose 100 MLS/HR; Start at 22:00 Assessment/Plan Chief Complaint/Hosp Course Assessment 1. Patient admitted with bilateral pneumonia leading to respiratory failure. 2. Severe intravascular volume depletion with severe hypernatremia. 3. Dementia. 4. History of chronic dysphagia, status post G-tube placement in the past. 5. History of CABG. 6. Chronic renal insufficiency. Hyponatremia likely free water deficit. 7. Anemia and mild thrombocytopenia.Questionable GI bleed with low hemoglobin. Status post transfusion 1 unit packed red blood cells 8. Episodes of ventricular tachycardia, corrected by potassium replacement. Plan 1. Continue mechanical ventilation, CPAP trial. If CPAP trial fails we will place on SIMV. 2. Continue tube feeding as tolerated increase free water. 3. Monitor H&H. Hold off further transfusion for now. 4. Continue DVT and GI prophylaxis Critical care time 40 minutes. Discussed with at bedside. Problems: PURNIMA MANE MD, [facility] Jan 20, 2017 10:00
[2017-01-20] MEDS: VANCOMYCIN 750 MG in DEXTROSE 5% 150 ML IVPB SCH (12:22)
--- NOTE | 2017-01-20 12:26 | PN ---
Date/Time of Note Date/Time of Note DATE: 01/20/17 TIME: 12:25 Assessment/Plan VTE Prophylaxis VTE Prophylaxis Intervention: LMWH Assessment/Plan Chief Complaint/Hosp Course 81 yo male with advanced Alzheimer's and vascular dementia, CAD s/p CABG, recurrent aspiration pneumonias, PEG tube for dysphagia NH resident who presents with sepsis from aspiration pneumonia and hypernatremia requiring intubation for acute hypoxic respiratory failure 2/2 health care associated pneumonia PULM: Acute hypoxic respiratory failure - Continue MV, wean off as able -Pulmonary following ID: Aspiration/healthcare associated pneumonia, severe sepsis: - Continue vanco/zosyn - Sputum culture - Blood and urine cultures were negative at this time - ID consultation RENAL: Hypernatremia and JOSLYN - D5W to correct FW deficit slowly - s/p NS boluses to restore euvolemia - Trend electrolytes - Unclear baseline creatinine but resolving -Nephrology consultation obtained NEURO: Alzheimers and vascular dementia - Stable CV: Hypertension CAD s/p CABG - Aspirin and statin - Hold antihypertensives for now DMII: - Insulin gtt Prophylaxis: Lovenox Overall patient with dismal [facility] prognosis. Patient and step daughter are aware of this and have discussed hospice previously. They are not willing to change goals of care at this time. Remains full code. Readdress daily Problems: Subjective 24 Hr Interval Summary Subjective hx not possible: pt non-verbal Exam/Review of Systems Vital Signs Vitals Vital Signs Date Time Temp Pulse Resp B/P Pulse Ox O2 Delivery O2 Flow Rate FiO2 01/20/17 11:00 65 17 135/83 99 Mechanical Ventilator 01/20/17 08:00 98.6 01/20/17 05:23 30 Intake and Output 01/19/17 01/19/17 01/20/17 15:00 23:00 07:00 Intake Total 1886.592 ml 1517.952 ml 1388.32 ml Output Total 1250 ml 1380 ml 975 ml Balance 636.592 ml 137.952 ml 413.32 ml Exam Constitutional: non-verbal ENMT: intubated Respiratory: clear to auscultation Cardiovascular: regular rate and rhythm Gastrointestinal: soft, No distended Musculoskeletal: nl extremities to inspection Results Result Diagram: 01/20/17 0430 01/20/17 0430 Results 24 hrs Laboratory Tests Test 01/20/17 04:30 01/20/17 05:19 White Blood Count 6.2 Red Blood Count 2.76 L Hemoglobin 7.6 L Hematocrit 24.7 L Mean Corpuscular Volume 89.5 Mean Corpuscular Hemoglobin 27.5 L Mean Corpuscular Hemoglobin Concent 30.8 L Red Cell Distribution Width 18.9 H Platelet Count 140 Mean Platelet Volume 12.6 H Neutrophils % 57.6 Lymphocytes % 22.3 Monocytes % 7.3 Eosinophils % 11.8 H Basophils % 0.2 Nucleated Red Blood Cells % 0.0 Neutrophils # 3.6 Lymphocytes # 1.4 Monocytes # 0.5 Eosinophils # 0.7 H Basophils # 0.0 Nucleated Red Blood Cells # 0.0 Sodium Level 148 H Potassium Level 3.9 Chloride Level 119 H Carbon Dioxide Level 24 Anion Gap 9 Blood Urea Nitrogen 22 H Creatinine 1.27 H Glucose Level 159 Calcium Level 8.1 L Phosphorus Level 3.5 Magnesium Level 2.3 Lab Scanned Report BLOOD TRANSFUSION Medications Medications Current Medications Ondansetron HCl (Zofran Inj) 4 mg Q6H PRN IV NAUSEA AND/OR VOMITING; Start at 06:00 Acetaminophen (Tylenol Supp) 650 mg Q4H PRN [place] PAIN LEVEL 1-3 OR FEVER; Start 01/16/17 at 06:00 Enoxaparin Sodium (Lovenox) 30 mg DAILY SC Last administered on 01/20/17 09:47 ; Admin Dose 30 MG; Start 01/16/17 at 09:00 Famotidine 20 mg 20 mg DAILY IV Last administered on 01/20/17 09:47; Admin Dose 20 MG; Start 01/17/17 at 09:00 Vancomycin HCl 750 mg/Dextrose/ Water 150 ml @ 75 mls/hr Q24H IVPB Last administered on 01/20/17 12:22; Admin Dose 75 MLS/HR; Start 01/17/17 at 12:00 Propofol 100 ml @ 2.16 mls/hr Q12H IV Last administered on 01/20/17 02:15; Admin Dose 6.48 MLS/HR; Start 01/16/17 at 12:00 Dextrose 1,000 ml @ 100 mls/hr Q10H IV Last administered on 01/20/17 03:29; Admin Dose 100 MLS/HR; Start 01/17/17 at 16:30 Fentanyl (Sublimaze) 100 ml @ 2.5 mls/hr TITRATE IV ; Start 01/18/17 at 10:00 Mupirocin 1 applic 1 applic BID TOP Last administered on 01/20/17 09:47; Admin Dose 1 APPLIC; Start 01/19/17 at 21:00 Piperacillin Sod/ Tazobactam Sod (Zosyn 2.25gm/ 50ml (Pmx)) 50 ml @ 100 mls/hr Q6H IVPB Last administered on 01/20/17 09:47; Admin Dose 100 MLS/HR; Start at 22:00 SEBLE BENJAMIN Jan 20, 2017 12:25
[2017-01-20 12:30] LABS: AADO2 Arterial 101.3 mmHg (7.0-24.0); Allen Test ACCEPTAB; Arterial COHb 0.3 % (0.0-3.0); Arterial Fraction of Oxyhgb 95.1 % (93.0-99.0); Arterial HCO3 22.3 mmol/L (22.0-26.0); Arterial MetHb 0.1 % (0.0-1.5); Arterial Total Hemglobin 9.2 g/dl (12.0-18.0); Blood Gas PS 10; MODE VENT - CPAP
--- NOTE | 2017-01-20 12:54 | PN ---
DATE: 01/20/2017 SUBJECTIVE DATA: The patient looks comfortable. Tolerated weaning trial. He is in no distress. at bedside. OBJECTIVE DATA: VITAL SIGNS: Temperature 98.6, pulse 66, respirations 20, blood pressure 139/78, saturation 100 on vent. LABORATORY DATA: WBC 6.2, H and H 7.6 and 24.7, platelets 140, no shift, no bands. BUN 22, creatinine 1.27. MICROBIOLOGY: All cultures have been negative. Nares swab positive for MRSA. INDWELLING: The patient has endotracheal tube, NG tube, Mcdonald catheter. ANTIMICROBIALS: 1. Vancomycin. 2. Zosyn. 3. Topical Bactroban to nares. PHYSICAL EXAMINATION: GENERAL: This is a fragile, chronically ill-appearing, elderly man, who is intubated and currently on CPAP. The patient is in no distress. HEENT: Head atraumatic, normocephalic. Sclerae anicteric. Buccal mucosa dry. NECK: Supple. LUNGS: Chest rise symmetrical. Breath sounds diminished at the bases. HEART: S1, S2. ABDOMEN: Soft, bowel sounds present. EXTREMITIES: With trace edema. ASSESSMENT: 1. Resolving sepsis. 2. Acute respiratory failure. 3. Bilateral pneumonia. 4. Methicillin-resistant Staphylococcus aureus nares colonization. 5. Coronary artery disease, history of coronary artery bypass grafting. 6. Acute kidney insufficiency, possibly chronic kidney disease. 7. Acute anemia. PLAN: The patient remains hemodynamically stable, covered with appropriate antimicrobials. Continue present care. Weaning trials and vent management as per Pulmonary. Dictated By: Ez Malik NP /[email or web address] /Document#: [id number]
--- NOTE | 2017-01-20 16:58 | CONS ---
Date/Time of Note Date/Time of Note DATE: 01/20/17 TIME: 16:57 Assessment/Plan Assessment/Plan Additional Assessment/Plan 81 yo Male with 1) Severe Sepsis 2) Hypernatremia 3) Trinh - Non oliguric improving 4) VDRF 5) Severe Anemia, S/p PRBC 6) Chronic HTN Stable renal function Na improving to goal Cont current Rx and plan Monitor UO, Electrolytes and renal fucntion closely Consultation Date/Type/Reason Admit Date/Time Jan 16, 2017 at 05:58 Initial Consult Date 01/19/17 Type of Consultation: Renal Referring Provider: SEBLE BENJAMIN 24 HR Interval Summary Free Text/Dictation S/p extubation, very good UO Subjective hx not possible: pt critical status Constitutional: requiring IVF, requiring O2 Exam/Review of Systems Vital Signs Vitals Vital Signs Date Time Temp Pulse Resp B/P Pulse Ox O2 Delivery O2 Flow Rate FiO2 01/20/17 12:55 100 3.0 01/20/17 12:50 71 25 30 01/20/17 12:50 Nasal Cannula 01/20/17 11:00 135/83 01/20/17 08:00 98.6 Intake and Output 01/19/17 01/19/17 01/20/17 15:00 23:00 07:00 Intake Total 1886.592 ml 1517.952 ml 1388.32 ml Output Total 1250 ml 1380 ml 975 ml Balance 636.592 ml 137.952 ml 413.32 ml Exam Constitutional: frail Head: atraumatic Eyes: EOMI ENMT: mucosa pink and moist Neck: No jvd Respiratory: crackles/rales, wheezing, No diminished breath sounds, No labored breathing Cardiovascular: regular rate and rhythm, No edema Gastrointestinal: non-tender, soft, No distended Extremities: No edema Neurological: lethargic Skin: No diaphoresis Results Result Diagram: 01/20/1742901/20/17 043 Results 24 hrs Laboratory Tests Test 01/20/17 04:30 01/20/17 05:19 01/20/17 12:00 White Blood Count 6.2 Red Blood Count 2.76 L Hemoglobin 7.6 L Hematocrit 24.7 L Mean Corpuscular Volume 89.5 Mean Corpuscular Hemoglobin 27.5 L Mean Corpuscular Hemoglobin Concent 30.8 L Red Cell Distribution Width 18.9 H Platelet Count 140 Mean Platelet Volume 12.6 H Neutrophils % 57.6 Lymphocytes % 22.3 Monocytes % 7.3 Eosinophils % 11.8 H Basophils % 0.2 Nucleated Red Blood Cells % 0.0 Neutrophils # 3.6 Lymphocytes # 1.4 Monocytes # 0.5 Eosinophils # 0.7 H Basophils # 0.0 Nucleated Red Blood Cells # 0.0 Sodium Level 148 H Potassium Level 3.9 Chloride Level 119 H Carbon Dioxide Level 24 Anion Gap 9 Blood Urea Nitrogen 22 H Creatinine 1.27 H Glucose Level 159 Calcium Level 8.1 L Phosphorus Level 3.5 Magnesium Level 2.3 Lab Scanned Report BLOOD TRANSFUSION Blood Gas Specimen Source Blood arterial Arterial Blood Date Drawn 01/20/2017 12:19:16 PM Arterial Blood pH (Temp corrected) 7.465 H Arterial Blood pCO2 (Temp correct) 31.7 L Arterial Blood pO2 (Temp corrected) 75.4 L Arterial Blood HCO3 22.3 Arterial Blood Base Excess -1.0 Arterial Blood Oxygen Saturation 95.5 Keith Test ACCEPTAB Arterial Blood Gas Puncture Site Right Brachial Arterial Blood Carboxyhemoglobin 0.3 Arterial Blood Methemoglobin 0.1 Blood Gas A-a O2 Differential 101.3 H Oxyhemoglobin Percent 95.1 Total Hemoglobin 9.2 L Blood Gas Temperature 37.0 Blood Gas Actual Respiration Rate 22 Blood Gas Modality VENT - CPAP FiO2 30.0 Blood Gas Low PEEP Setting 5.0 Blood Gas Pressure Support 10 Blood Gas Notified Whom RH Blood Gas Notified Time 01/20/2017 12:30:43 PM Medications Medications Current Medications Ondansetron HCl (Zofran Inj) 4 mg Q6H PRN IV NAUSEA AND/OR VOMITING; Start at 06:00 Acetaminophen (Tylenol Supp) 650 mg Q4H PRN [place] PAIN LEVEL 1-3 OR FEVER; Start 01/16/17 at 06:00 Enoxaparin Sodium (Lovenox) 30 mg DAILY SC Last administered on 01/20/17 09:47 ; Admin Dose 30 MG; Start 01/16/17 at 09:00 Famotidine 20 mg 20 mg DAILY IV Last administered on 01/20/17 09:47; Admin Dose 20 MG; Start 01/17/17 at 09:00 Vancomycin HCl 750 mg/Dextrose/ Water 150 ml @ 75 mls/hr Q24H IVPB Last administered on 01/20/17 12:22; Admin Dose 75 MLS/HR; Start 01/17/17 at 12:00 Propofol 100 ml @ 2.16 mls/hr Q12H IV Last administered on 01/20/17 02:15; Admin Dose 6.48 MLS/HR; Start 01/16/17 at 12:00 Dextrose 1,000 ml @ 100 mls/hr Q10H IV Last administered on 01/20/17 03:29; Admin Dose 100 MLS/HR; Start 01/17/17 at 16:30 Fentanyl (Sublimaze) 100 ml @ 2.5 mls/hr TITRATE IV ; Start 01/18/17 at 10:00 Mupirocin 1 applic 1 applic BID TOP Last administered on 01/20/17 09:47; Admin Dose 1 APPLIC; Start 01/19/17 at 21:00 Piperacillin Sod/ Tazobactam Sod (Zosyn 2.25gm/ 50ml (Pmx)) 50 ml @ 100 mls/hr Q6H IVPB Last administered on 01/20/17 09:47; Admin Dose 100 MLS/HR; Start at 22:00 RODERICK PALMA MD Jan 20, 2017 16:58
[2017-01-20] MEDS: hydrALAzine 20 MG INJ IV PRN (21:12)
[2017-01-21] VITALS (24 sets, daily range): BP systolic 128–160; BP diastolic 65–109; PULSE 70–97; RESP 15–37
[2017-01-21] MEDS: DEXTROSE 5% 1,000 ML IV SCH ×2 (03:30→11:25)
[2017-01-21] MEDS: PIPER-TAZO 2.25 GM (PMX) 50 ML IVPB SCH ×4 (04:46→22:05)
[2017-01-21 05:29] LABS: BASOPHILS % 0.3 % (0.0-2.0); EOSINOPHILS # 0.7 10^3/ul (0.0-0.5); EOSINOPHILS % 8.8 % (0.0-7.0); HEMATOCRIT 29.5 % (42.0-52.0); HEMOGLOBIN 9.1 g/dl (14.0-18.0); LYMPHOCYTES # 1.4 10^3/ul (0.8-2.9); LYMPHOCYTES % 18.5 % (15.0-51.0); MEAN CORPUSCULAR HEMOGLOBIN 27.2 pg (29.0-33.0); MEAN CORPUSCULAR HGB CONC 30.8 g/dl (32.0-37.0); MEAN CORPUSCULAR VOLUME 88.3 fl (82.0-101.0); MEAN PLATELET VOLUME 12.3 fl (7.4-10.4); MONOCYTE # 0.7 10^3/ul (0.3-0.9); MONOCYTES % 8.4 % (0.0-11.0); NEUTROPHIL # 4.9 10^3/ul (1.6-7.5); PLATELET COUNT 189 10^3/UL (140-415); RED BLOOD COUNT 3.34 10^6/ul (4.70-6.10); RED CELL DISTRIBUTION WIDTH 18.3 % (11.5-14.5); WHITE BLOOD COUNT 7.7 10^3/ul (4.8-10.8)
[2017-01-21 06:02] LABS: CALCIUM 8.3 mg/dl (8.4-10.2); CREATININE 1.2 mg/dl (0.61-1.24); MAGNESIUM 2.3 mg/dl (1.7-2.5); PHOSPHORUS 3.2 mg/dl (2.5-4.9); POTASSIUM 3.5 mmol/L (3.5-5.1)
[2017-01-21] MEDS ORDERED: POTASSIUM CHLORIDE 250 ML IVPB ONE (06:30)
[2017-01-21 08:08] LABS: AADO2 Arterial 43.9 mmHg (7.0-24.0); Allen Test ACCEPTAB; Arterial Base Excess -0.7 mmol/L (-3.0-3); Arterial COHb 0.4 % (0.0-3.0); Arterial Fraction of Oxyhgb 96.9 % (93.0-99.0); Arterial HCO3 22.7 mmol/L (22.0-26.0); Arterial MetHb 0.3 % (0.0-1.5); Arterial Total Hemglobin 12.5 g/dl (12.0-18.0); MODE NASAL CANNULA
--- NOTE | 2017-01-21 08:47 | RADRPT ---
PROCEDURE: XR Chest 1 View. CLINICAL INDICATION: Shortness of breath. TECHNIQUE: AP view of the chest was obtained. COMPARISON: Yesterday FINDINGS: The cardiomediastinal silhouette is within normal limits. Median sternotomy wires overlie the heart. Right-sided central line is stable. Endotracheal tube has been removed. Retrocardiac opacity is sta ble. Patchy atelectasis versus minimal infiltrates in the right lower lung are stable. Calcified gra nuloma is noted in the left lower lobe. The osseous structures are unchanged. IMPRESSION: Interval extubation. Stable retrocardiac opacity that may reflect left lower lobe atelectasis or infiltrate combined with small pleural effusion. Stable atelectasis versus minimal infiltrates in the right lower lung. Calcified granuloma in the left lower lobe. RPTAT: AA .Napoleon Holland MD, Date Time Electronically viewed and signed by .Napoleon Holland MD, MD on 01/21/2017 08:47 .P/
[2017-01-21] MEDS: MUPIROCIN 2% 22 GM OINT TOP SCH ×2 (08:58→22:06)
[2017-01-21] MEDS: FAMOTIDINE 20 MG INJ IV SCH (08:58)
[2017-01-21] MEDS: ENOXAPARIN 30 MG/0.3 ML SYG SC SCH (09:05)
--- NOTE | 2017-01-21 09:35 | CONS ---
Date/Time of Note Date/Time of Note DATE: 01/21/17 TIME: 09:33 Consult Date/Type/Reason Admit Date/Time Jan 16, 2017 at 05:58 Initial Consult Date 01/16/17 Type of Consultation: Pulmonary Ordering Provider: SEBLE BENJAMIN Subjective Patient extubated yesterday. Is comfortable this morning. Somnolent but arousable. Some difficulty clearing secretions. Objective Vital Signs Date Time Temp Pulse Resp B/P Pulse Ox O2 Delivery O2 Flow Rate FiO2 01/21/17 08:00 98.6 75 24 139/78 97 Nasal Cannula 2.0 01/20/17 12:50 30 Intake and Output 01/20/17 01/20/17 01/21/17 15:00 23:00 07:00 Intake Total 1435.552 ml 1480 ml 1370 ml Output Total 1749 ml 2150 ml 1875 ml Balance -313.448 ml -670 ml -505 ml Exam PHYSICAL EXAMINATION GENERAL: Elderly gentleman, remains stable on nasal cannula oxygen VITAL SIGNS: see below. HEENT: Pupils equal, round, and reactive to light. CARDIAC: S1, S2, 2/6 systolic ejection murmur CHEST: Diminished air entry bilaterally. ABDOMEN: Mildly distended. Bowel sounds present no guarding or rebound EXTREMITIES: No cyanosis, clubbing edema +1 NEUROLOGIC: Generalized weakness Results/Medications Result Diagram: 01/21/17 0450 01/21/17 0450 Results 24 hrs Laboratory Tests Test 01/20/17 12:00 01/21/17 04:50 01/21/17 07:00 Blood Gas Specimen Source Blood arterial Blood arterial Arterial Blood Date Drawn 01/20/2017 12:19:16 PM 01/21/2017 7:10:52 AM Arterial Blood pH (Temp corrected) 7.465 H 7.449 Arterial Blood pCO2 (Temp correct) 31.7 L 33.5 L Arterial Blood pO2 (Temp corrected) 75.4 L 109.0 H Arterial Blood HCO3 22.3 22.7 Arterial Blood Base Excess -1.0 -0.7 Arterial Blood Oxygen Saturation 95.5 97.6 Keith Test ACCEPTAB ACCEPTAB Arterial Blood Gas Puncture Site Right Brachial Right Radial Arterial Blood Carboxyhemoglobin 0.3 0.4 Arterial Blood Methemoglobin 0.1 0.3 Blood Gas A-a O2 Differential 101.3 H 43.9 H Oxyhemoglobin Percent 95.1 96.9 Total Hemoglobin 9.2 L 12.5 Blood Gas Temperature 37.0 37.0 Blood Gas Actual Respiration Rate 22 Blood Gas Modality VENT - CPAP NASAL CANNULA FiO2 30.0 27.0 Blood Gas Low PEEP Setting 5.0 Blood Gas Pressure Support 10 Blood Gas Notified Whom RH JLD Blood Gas Notified Time 01/20/2017 12:30:43 PM 01/21/2017 8:08:21 AM White Blood Count 7.7 # Red Blood Count 3.34 #L Hemoglobin 9.1 L Hematocrit 29.5 L Mean Corpuscular Volume 88.3 Mean Corpuscular Hemoglobin 27.2 L Mean Corpuscular Hemoglobin Concent 30.8 L Red Cell Distribution Width 18.3 H Platelet Count 189 # Mean Platelet Volume 12.3 H Neutrophils % 63.0 Lymphocytes % 18.5 Monocytes % 8.4 Eosinophils % 8.8 H Basophils % 0.3 Nucleated Red Blood Cells % 0.0 Neutrophils # 4.9 Lymphocytes # 1.4 Monocytes # 0.7 Eosinophils # 0.7 H Basophils # 0.0 Nucleated Red Blood Cells # 0.0 Sodium Level 147 H Potassium Level 3.5 Chloride Level 116 H Carbon Dioxide Level 26 Anion Gap 9 Blood Urea Nitrogen 18 Creatinine 1.20 Glucose Level 108 # Calcium Level 8.3 L Phosphorus Level 3.2 Magnesium Level 2.3 Medications Current Medications Ondansetron HCl (Zofran Inj) 4 mg Q6H PRN IV NAUSEA AND/OR VOMITING; Start at 06:00 Acetaminophen (Tylenol Supp) 650 mg Q4H PRN [place] PAIN LEVEL 1-3 OR FEVER; Start 01/16/17 at 06:00 Enoxaparin Sodium (Lovenox) 30 mg DAILY SC Last administered on 01/21/17 09:05 ; Admin Dose 30 MG; Start 01/16/17 at 09:00 Famotidine 20 mg 20 mg DAILY IV Last administered on 01/21/17 08:58; Admin Dose 20 MG; Start 01/17/17 at 09:00 Vancomycin HCl 750 mg/Dextrose/ Water 150 ml @ 75 mls/hr Q24H IVPB Last administered on 01/20/17 12:22; Admin Dose 75 MLS/HR; Start 01/17/17 at 12:00 Propofol 100 ml @ 2.16 mls/hr Q12H IV Last administered on 01/20/17 02:15; Admin Dose 6.48 MLS/HR; Start 01/16/17 at 12:00 Dextrose 1,000 ml @ 100 mls/hr Q10H IV Last administered on 01/21/17 03:30; Admin Dose 100 MLS/HR; Start 01/17/17 at 16:30 Fentanyl (Sublimaze) 100 ml @ 2.5 mls/hr TITRATE IV ; Start 01/18/17 at 10:00 Mupirocin 1 applic 1 applic BID TOP Last administered on 01/21/17 08:58; Admin Dose 1 APPLIC; Start 01/19/17 at 21:00 Piperacillin Sod/ Tazobactam Sod (Zosyn 2.25gm/ 50ml (Pmx)) 50 ml @ 100 mls/hr Q6H IVPB Last administered on 01/21/17 09:08; Admin Dose 100 MLS/HR; Start at 22:00 Hydralazine HCl 10 mg 10 mg Q4H PRN IV SBP ABOVE OR = 160 Last administered on 01/20/17 21:12; Admin Dose 10 MG; Start 01/20/17 at 20:00 Potassium Chloride (KCl 40 MEQ/250 ML NS) 250 ml @ 62.5 mls/hr ONCE ONCE IVPB Last administered on 01/21/17 06:21; Admin Dose 62.5 MLS/HR; Start 01/21/17 at 06:30; Stop 01/21/17 at 10:29 Miscellaneous Information (*Rx Drug Level Order Reminder*) VANCOMYCIN TROUGH ON 12/26... ONCE ONCE XX ; Start 01/22/17 at 11:00; Stop 01/22/17 at 11:01 Assessment/Plan Chief Complaint/Hosp Course Assessment 1. Patient admitted with bilateral pneumonia leading to respiratory failure. Now extubated on nasal cannula oxygen difficulty clearing secretions risk for reintubation. 2. Severe intravascular volume depletion with severe hypernatremia. 3. Dementia. 4. History of chronic dysphagia, status post G-tube placement in the past. 5. History of CABG. 6. Chronic renal insufficiency. Hyponatremia likely free water deficit. 7. Anemia and mild thrombocytopenia.Questionable GI bleed with low hemoglobin. Status post transfusion 1 unit packed red blood cells 8. Episodes of ventricular tachycardia, corrected by potassium replacement. Plan 1. Continue pulmonary toilet and aspiration precautions. Discussed with patient's regarding reintubation status yesterday. Currently she wishes everything to be done although understands his very poor prognosis. 2. Continue tube feeding as tolerated increase free water. 3. Monitor H&H. Hold off further transfusion for now. 4. Continue DVT and GI prophylaxis Critical care time 40 minutes. Family conference regarding goals of care. Problems: PURNIMA MANE MD, [facility] Jan 21, 2017 09:35
--- NOTE | 2017-01-21 11:20 | PN ---
Date/Time of Note Date/Time of Note DATE: 01/21/17 TIME: 11:19 Assessment/Plan VTE Prophylaxis VTE Prophylaxis Intervention: LMWH Assessment/Plan Chief Complaint/Hosp Course 81 yo male with advanced Alzheimer's and vascular dementia, CAD s/p CABG, recurrent aspiration pneumonias, PEG tube for dysphagia [facility] resident who presents with sepsis from aspiration pneumonia and hypernatremia requiring intubation for acute hypoxic respiratory failure 2/2 health care associated pneumonia PULM: Acute hypoxic respiratory failure-extubated -Pulmonary following ID: Aspiration/healthcare associated pneumonia, severe sepsis: - Continue vanco/zosyn - Sputum culture - Blood and urine cultures were negative at this time - ID following RENAL: Hypernatremia and JOSLYN - D5W to correct FW deficit slowly - s/p NS boluses to restore euvolemia - Trend electrolytes - Unclear baseline creatinine but resolving -Nephrology consultation obtained NEURO: Alzheimers and vascular dementia -Family conference to discuss goals of care CV: Hypertension CAD s/p CABG - Aspirin and statin - Hold antihypertensives for now DMII: - Insulin gtt Prophylaxis: Lovenox Overall patient with dismal intermediate designer prognosis. Patient and step daughter are aware of this and have discussed hospice previously. They are not willing to change goals of care at this time. Remains full code. Family conference tomorrow Problems: Subjective 24 Hr Interval Summary Subjective hx not possible: pt non-verbal Exam/Review of Systems Vital Signs Vitals Vital Signs Date Time Temp Pulse Resp B/P Pulse Ox O2 Delivery O2 Flow Rate FiO2 01/21/17 08:00 76 01/21/17 08:00 98.6 24 139/78 97 Nasal Cannula 2.0 01/20/17 12:50 30 Intake and Output 01/20/17 01/20/17 01/21/17 15:00 23:00 07:00 Intake Total 1435.552 ml 1480 ml 1370 ml Output Total 1749 ml 2150 ml 1875 ml Balance -313.448 ml -670 ml -505 ml Exam Constitutional: non-verbal Respiratory: clear to auscultation Cardiovascular: regular rate and rhythm Gastrointestinal: soft, No distended Musculoskeletal: nl extremities to inspection Results Result Diagram: 01/21/17 0450 01/21/17 0450 Results 24 hrs Laboratory Tests Test 01/20/17 12:00 01/21/17 04:50 01/21/17 07:00 Blood Gas Specimen Source Blood arterial Blood arterial Arterial Blood Date Drawn 01/20/2017 12:19:16 PM 01/21/2017 7:10:52 AM Arterial Blood pH (Temp corrected) 7.465 H 7.449 Arterial Blood pCO2 (Temp correct) 31.7 L 33.5 L Arterial Blood pO2 (Temp corrected) 75.4 L 109.0 H Arterial Blood HCO3 22.3 22.7 Arterial Blood Base Excess -1.0 -0.7 Arterial Blood Oxygen Saturation 95.5 97.6 Keith Test ACCEPTAB ACCEPTAB Arterial Blood Gas Puncture Site Right Brachial Right Radial Arterial Blood Carboxyhemoglobin 0.3 0.4 Arterial Blood Methemoglobin 0.1 0.3 Blood Gas A-a O2 Differential 101.3 H 43.9 H Oxyhemoglobin Percent 95.1 96.9 Total Hemoglobin 9.2 L 12.5 Blood Gas Temperature 37.0 37.0 Blood Gas Actual Respiration Rate 22 Blood Gas Modality VENT - CPAP NASAL CANNULA FiO2 30.0 27.0 Blood Gas Low PEEP Setting 5.0 Blood Gas Pressure Support 10 Blood Gas Notified Whom RH JLD Blood Gas Notified Time 01/20/2017 12:30:43 PM 01/21/2017 8:08:21 AM White Blood Count 7.7 # Red Blood Count 3.34 #L Hemoglobin 9.1 L Hematocrit 29.5 L Mean Corpuscular Volume 88.3 Mean Corpuscular Hemoglobin 27.2 L Mean Corpuscular Hemoglobin Concent 30.8 L Red Cell Distribution Width 18.3 H Platelet Count 189 # Mean Platelet Volume 12.3 H Neutrophils % 63.0 Lymphocytes % 18.5 Monocytes % 8.4 Eosinophils % 8.8 H Basophils % 0.3 Nucleated Red Blood Cells % 0.0 Neutrophils # 4.9 Lymphocytes # 1.4 Monocytes # 0.7 Eosinophils # 0.7 H Basophils # 0.0 Nucleated Red Blood Cells # 0.0 Sodium Level 147 H Potassium Level 3.5 Chloride Level 116 H Carbon Dioxide Level 26 Anion Gap 9 Blood Urea Nitrogen 18 Creatinine 1.20 Glucose Level 108 # Calcium Level 8.3 L Phosphorus Level 3.2 Magnesium Level 2.3 Medications Medications Current Medications Ondansetron HCl (Zofran Inj) 4 mg Q6H PRN IV NAUSEA AND/OR VOMITING; Start at 06:00 Acetaminophen (Tylenol Supp) [address] PAIN LEVEL 1-3 OR FEVER; Start 01/16/17 at 06:00 Enoxaparin Sodium (Lovenox) 30 mg DAILY SC Last administered on 01/21/17 09:05 ; Admin Dose 30 MG; Start 01/16/17 at 09:00 Famotidine 20 mg 20 mg DAILY IV Last administered on 01/21/17 08:58; Admin Dose 20 MG; Start 01/17/17 at 09:00 Vancomycin HCl 750 mg/Dextrose/ Water 150 ml @ 75 mls/hr Q24H IVPB Last administered on 01/20/17 12:22; Admin Dose 75 MLS/HR; Start 01/17/17 at 12:00 Propofol 100 ml @ 2.16 mls/hr Q12H IV Last administered on 01/20/17 02:15; Admin Dose 6.48 MLS/HR; Start 01/16/17 at 12:00 Dextrose 1,000 ml @ 100 mls/hr Q10H IV Last administered on 01/21/17 03:30; Admin Dose 100 MLS/HR; Start 01/17/17 at 16:30 Fentanyl (Sublimaze) 100 ml @ 2.5 mls/hr TITRATE IV ; Start 01/18/17 at 10:00 Mupirocin 1 applic 1 applic BID TOP Last administered on 01/21/17 08:58; Admin Dose 1 APPLIC; Start 01/19/17 at 21:00 Piperacillin Sod/ Tazobactam Sod (Zosyn 2.25gm/ 50ml (Pmx)) 50 ml @ 100 mls/hr Q6H IVPB Last administered on 01/21/17 09:08; Admin Dose 100 MLS/HR; Start at 22:00 Hydralazine HCl (Apresoline) 10 mg Q4H PRN IV SBP ABOVE OR = 160 Last administered on 01/20/17 21:12; Admin Dose 10 MG; Start 01/20/17 at 20:00 Miscellaneous Information (*Rx Drug Level Order Reminder*) VANCOMYCIN TROUGH ON 12/26... ONCE ONCE XX ; Start 01/22/17 at 11:00; Stop 01/22/17 at 11:01 SEBLE BENJAMIN Jan 21, 2017 11:20
[2017-01-21] MEDS: PROPOFOL 100 ML IV SCH (11:25)
[2017-01-21] MEDS: VANCOMYCIN 750 MG in DEXTROSE 5% 150 ML IVPB SCH (11:25)
--- NOTE | 2017-01-21 13:06 | PN ---
DATE: 01/21/2017 SUBJECTIVE DATA: Patient was extubated yesterday. He is lying comfortably in bed, noncommunicative and in no distress. OBJECTIVE DATA: VITAL SIGNS: Temperature 98.6, pulse 75, respirations 24, blood pressure 139/78, saturation 97 on 2 L nasal cannula. LABORATORY AND DIAGNOSTIC DATA: WBC 7.7, H and H 9.1 and 29.5, platelets 189. BUN 18, creatinine 1.12. ANTIMICROBIALS: 1. Zosyn. 2. Vancomycin. INDWELLING: Patient has PEG, Mcdonald catheter. PHYSICAL EXAMINATION: GENERAL: This is a fragile, chronically ill-appearing, elderly man, who is lethargic and in no distress. The patient is comfortable on nasal cannula. HEENT: Head atraumatic, normocephalic. Sclerae anicteric. Buccal mucosa pink, dry. NECK: Supple. CHEST: Rise symmetrical. Breath sounds diminished at the bases. HEART: S1, S2. ABDOMEN: Soft, bowel sounds present. EXTREMITIES: With trace edema. ASSESSMENT: 1. Status post sepsis. 2. Pneumonia, status post acute respiratory failure. 3. Pneumonia. 4. Methicillin-resistant Staphylococcus aureus nares colonization. 5. Anemia. 6. History of coronary artery bypass grafting. 7. Alzheimer's dementia. PLAN: The patient remains stable post extubation. Continue present care. Antibiotics. Anti-aspiration measures. Dictated By: Ez Malik NP /[email or web address] /Document#: [id number]
--- NOTE | 2017-01-21 14:52 | CONS ---
Date/Time of Note Date/Time of Note DATE: 01/21/17 TIME: 14:51 Assessment/Plan Assessment/Plan Additional Assessment/Plan 81 yo Male with 1) Severe Sepsis 2) Hypernatremia 3) Joslyn - Non oliguric improving 4) VDRF 5) Severe Anemia, S/p PRBC 6) Chronic HTN Stable renal function, JOSLYN Resolved Na improving to goal Cont current Rx and plan Will cont to Monitor UO, Electrolytes and renal function closely Consultation Date/Type/Reason Admit Date/Time Jan 16, 2017 at 05:58 Initial Consult Date 01/19/17 Type of Consultation: Renal Referring Provider: SEBLE BENJAMIN 24 HR Interval Summary Subjective hx not possible: pt critical status Constitutional: requiring O2 Exam/Review of Systems Vital Signs Vitals Vital Signs Date Time Temp Pulse Resp B/P Pulse Ox O2 Delivery O2 Flow Rate FiO2 01/21/17 13:00 78 19 144/87 95 Room Air 01/21/17 12:00 98.2 01/21/17 09:00 2.0 01/20/17 12:50 30 Intake and Output 01/20/17 01/20/17 01/21/17 15:00 23:00 07:00 Intake Total 1435.552 ml 1480 ml 1532.5 ml Output Total 1749 ml 2150 ml 1875 ml Balance -313.448 ml -670 ml -342.5 ml Exam Constitutional: No distress ENMT: mucosa pink and moist Respiratory: No labored breathing Neurological: lethargic Skin: No diaphoresis Results Result Diagram: 01/21/17 0450 01/21/17 0450 Results 24 hrs Laboratory Tests Test 01/21/17 04:50 01/21/17 07:00 White Blood Count 7.7 # Red Blood Count 3.34 #L Hemoglobin 9.1 L Hematocrit 29.5 L Mean Corpuscular Volume 88.3 Mean Corpuscular Hemoglobin 27.2 L Mean Corpuscular Hemoglobin Concent 30.8 L Red Cell Distribution Width 18.3 H Platelet Count 189 # Mean Platelet Volume 12.3 H Neutrophils % 63.0 Lymphocytes % 18.5 Monocytes % 8.4 Eosinophils % 8.8 H Basophils % 0.3 Nucleated Red Blood Cells % 0.0 Neutrophils # 4.9 Lymphocytes # 1.4 Monocytes # 0.7 Eosinophils # 0.7 H Basophils # 0.0 Nucleated Red Blood Cells # 0.0 Sodium Level 147 H Potassium Level 3.5 Chloride Level 116 H Carbon Dioxide Level 26 Anion Gap 9 Blood Urea Nitrogen 18 Creatinine 1.20 Glucose Level 108 # Calcium Level 8.3 L Phosphorus Level 3.2 Magnesium Level 2.3 Blood Gas Specimen Source Blood arterial Arterial Blood Date Drawn 01/21/2017 7:10:52 AM Arterial Blood pH (Temp corrected) 7.449 Arterial Blood pCO2 (Temp correct) 33.5 L Arterial Blood pO2 (Temp corrected) 109.0 H Arterial Blood HCO3 22.7 Arterial Blood Base Excess -0.7 Arterial Blood Oxygen Saturation 97.6 Ketih Test ACCEPTAB Arterial Blood Gas Puncture Site Right Radial Arterial Blood Carboxyhemoglobin 0.4 Arterial Blood Methemoglobin 0.3 Blood Gas A-a O2 Differential 43.9 H Oxyhemoglobin Percent 96.9 Total Hemoglobin 12.5 Blood Gas Temperature 37.0 Blood Gas Modality NASAL CANNULA FiO2 27.0 Blood Gas Notified Whom JLD Blood Gas Notified Time 01/21/2017 8:08:21 AM Imaging Free Text/Dictation PROCEDURE: XR Chest 1 View. CLINICAL INDICATION: Shortness of breath. TECHNIQUE: AP view of the chest was obtained. COMPARISON: Yesterday FINDINGS: The cardiomediastinal silhouette is within normal limits. Median sternotomy wires overlie the heart. Right-sided central line is stable. Endotracheal tube has been removed. Retrocardiac opacity is stable. Patchy atelectasis versus minimal infiltrates in the right lower lung are stable. Calcified granuloma is noted in the left lower lobe. The osseous structures are unchanged. IMPRESSION: Interval extubation. Stable retrocardiac opacity that may reflect left lower lobe atelectasis or infiltrate combined with small pleural effusion. Stable atelectasis versus minimal infiltrates in the right lower lung. Calcified granuloma in the left lower lobe. RPTAT: AA .Napoleon Holland MD, Date Time Electronically viewed and signed by .Napoleon Holland MD, on 01/21/2017 08:47 Medications Medications Current Medications Ondansetron HCl (Zofran Inj) 4 mg Q6H PRN IV NAUSEA AND/OR VOMITING; Start at 06:00 Acetaminophen (Tylenol Supp) 650 mg Q4H PRN [place] PAIN LEVEL 1-3 OR FEVER; Start 01/16/17 at 06:00 Enoxaparin Sodium (Lovenox) 30 mg DAILY SC Last administered on 01/21/17 09:05 ; Admin Dose 30 MG; Start 01/16/17 at 09:00 Famotidine 20 mg 20 mg DAILY IV Last administered on 01/21/17 08:58; Admin Dose 20 MG; Start 01/17/17 at 09:00 Vancomycin HCl 750 mg/Dextrose/ Water 150 ml @ 75 mls/hr Q24H IVPB Last administered on 01/21/17 11:25; Admin Dose 75 MLS/HR; Start 01/17/17 at 12:00 Propofol 100 ml @ 2.16 mls/hr Q12H IV Last administered on 01/20/17 02:15; Admin Dose 6.48 MLS/HR; Start 01/16/17 at 12:00 Dextrose 1,000 ml @ 100 mls/hr Q10H IV Last administered on 01/21/17 11:25; Admin Dose 100 MLS/HR; Start 01/17/17 at 16:30 Fentanyl (Sublimaze) 100 ml @ 2.5 mls/hr TITRATE IV ; Start 01/18/17 at 10:00 Mupirocin 1 applic 1 applic BID TOP Last administered on 01/21/17 08:58; Admin Dose 1 APPLIC; Start 01/19/17 at 21:00 Piperacillin Sod/ Tazobactam Sod (Zosyn 2.25gm/ 50ml (Pmx)) 50 ml @ 100 mls/hr Q6H IVPB Last administered on 01/21/17 09:08; Admin Dose 100 MLS/HR; Start at 22:00 Hydralazine HCl (Apresoline) 10 mg Q4H PRN IV SBP ABOVE OR = 160 Last administered on 01/20/17 21:12; Admin Dose 10 MG; Start 01/20/17 at 20:00 Miscellaneous Information (*Rx Drug Level Order Reminder*) VANCOMYCIN TROUGH ON 12/26... ONCE ONCE XX ; Start 01/22/17 at 11:00; Stop 01/22/17 at 11:01 RODERICK PALMA MD Jan 21, 2017 14:52
[2017-01-21 20:29] LABS: ALBUMIN 2.8 g/dl (3.3-4.9); ALBUMIN/GLOBULIN RATIO 0.68; BILIRUBIN,INDIRECT 0.2 mg/dl (0-1.1); BILIRUBIN,TOTAL 0.2 mg/dl (0.2-1.3); CALCIUM 8.5 mg/dl (8.4-10.2); CREATININE 1.15 mg/dl (0.61-1.24); MAGNESIUM 2.3 mg/dl (1.7-2.5); POTASSIUM 3.7 mmol/L (3.5-5.1); TOTAL PROTEIN 6.9 g/dl (6.1-8.1)
[2017-01-22] VITALS (23 sets, daily range): BP systolic 107–156; BP diastolic 62–110; PULSE 76–98; RESP 16–30
[2017-01-22] MEDS: PIPER-TAZO 2.25 GM (PMX) 50 ML IVPB SCH ×3 (04:00→16:53)
[2017-01-22 06:25] LABS: BASOPHILS % 0.2 % (0.0-2.0); EOSINOPHILS # 0.6 10^3/ul (0.0-0.5); EOSINOPHILS % 6.7 % (0.0-7.0); HEMATOCRIT 30.8 % (42.0-52.0); HEMOGLOBIN 9.4 g/dl (14.0-18.0); LYMPHOCYTES # 1.5 10^3/ul (0.8-2.9); LYMPHOCYTES % 16.2 % (15.0-51.0); MEAN CORPUSCULAR HEMOGLOBIN 26.8 pg (29.0-33.0); MEAN CORPUSCULAR HGB CONC 30.5 g/dl (32.0-37.0); MEAN CORPUSCULAR VOLUME 87.7 fl (82.0-101.0); MEAN PLATELET VOLUME 12.7 fl (7.4-10.4); MONOCYTE # 0.7 10^3/ul (0.3-0.9); MONOCYTES % 7.7 % (0.0-11.0); NEUTROPHIL # 6.3 10^3/ul (1.6-7.5); NEUTROPHILS % 68.7 % (39.0-77.0); PLATELET COUNT 227 10^3/UL (140-415); RED BLOOD COUNT 3.51 10^6/ul (4.70-6.10); RED CELL DISTRIBUTION WIDTH 18.9 % (11.5-14.5); WHITE BLOOD COUNT 9.2 10^3/ul (4.8-10.8)
[2017-01-22 06:58] LABS: CALCIUM 8.8 mg/dl (8.4-10.2); CREATININE 1.14 mg/dl (0.61-1.24); MAGNESIUM 2.3 mg/dl (1.7-2.5); PHOSPHORUS 3.1 mg/dl (2.5-4.9); POTASSIUM 3.6 mmol/L (3.5-5.1)
[2017-01-22] MEDS: DEXTROSE 5% 1,000 ML IV SCH (08:00)
--- NOTE | 2017-01-22 08:33 | RADRPT ---
PROCEDURE: XR Chest. CLINICAL INDICATION: Shortness of breath. TECHNIQUE: Single frontal view. COMPARISON: 01/21/2017. FINDINGS: There is a right internal jugular vein catheter with the tip in the upper superior vena cava. A calc ified granuloma is present in the left lung base laterally. There is mild atelectasis at the lung ba ses. The lungs are otherwise clear. The heart size is normal. There are sternal wires. There is no pleural effusion. There is no pneumothorax. IMPRESSION: 1. No change from 01/21/2017. RPTAT: QQ .Wisam Bolaños MD, MD Date Time Electronically viewed and signed by .Wisam Bolaños MD, on 01/22/2017 08:33 .R/
[2017-01-22] MEDS: MUPIROCIN 2% 22 GM OINT TOP SCH ×2 (09:08→20:50)
[2017-01-22] MEDS: FAMOTIDINE 20 MG INJ IV SCH (09:12)
[2017-01-22] MEDS: PROPOFOL 100 ML IV SCH ×2 (09:21→12:00)
[2017-01-22] MEDS: ENOXAPARIN 30 MG/0.3 ML SYG SC SCH (09:21)
--- NOTE | 2017-01-22 09:59 | CONS ---
Date/Time of Note Date/Time of Note DATE: 01/22/17 TIME: 09:55 Assessment/Plan Assessment/Plan Additional Assessment/Plan Assessment and recommendations; 1. Patient admitted with respiratory failure due to sepsis as well as severe intravascular volume depletion and prerenal azotemia with marked hypernatremia and hyperchloremia with significant interval improvement. 2. Advanced dementia. 3. Status post G-tube placement in the past. 4. Anemia and thrombocytopenia. 5. Status post extubation yesterday. 6. advanced dementia and poor cough reflex causing pharyngeal secretions accumulation. Continue current treatment. Consider stopping antibiotics. Family conference to take place today regarding CODE STATUS. Continue to keep patient in ICU until the CODE STATUS is clarified. Overall prognosis remains poor. Consultation Date/Type/Reason Admit Date/Time Jan 16, 2017 at 05:58 Initial Consult Date 01/16/17 Type of Consultation: Pulmonary/critical care Referring Provider: SEBLE BENJAMIN 24 HR Interval Summary Free Text/Dictation Patient's condition is tenuous at best. He was extubated yesterday. Having what appears to be pharyngeal secretions which he is unable to cough up. General exam; elderly male, arousable but unresponsive to any commands. Exam/Review of Systems Vital Signs Vitals Vital Signs Date Time Temp Pulse Resp B/P Pulse Ox O2 Delivery O2 Flow Rate FiO2 01/22/17 07:00 83 20 135/62 94 Nasal Cannula 4.0 01/22/17 04:00 97.8 01/22/17 00:58 21 Intake and Output 01/21/17 01/21/17 01/22/17 15:00 23:00 07:00 Intake Total 1625.0 ml 1080 ml 720 ml Output Total 1650 ml 900 ml 1250 ml Balance -25.0 ml 180 ml -530 ml Exam HEENT exam; supple neck, no JVD. No lymphadenopathy. Midline trachea. No thyromegaly. No stridor. Pupils are small bilaterally. Patient is edentulous. Chest exam; diminished breath sounds bilaterally. No added sounds. S1-S2 audible, no murmurs. Regular rhythm. Abdomen exam; soft, G-tube in place. Scaphoid. Bowel sounds audible. No organomegaly. Extremity exam; no peripheral edema. 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 Results Result Diagram: 01/22/1742901/22/17429 Results 24 hrs Laboratory Tests Test 01/21/17 20:02 01/22/17 04:30 Sodium Level 144 143 Potassium Level 3.7 3.6 Chloride Level 113 H 114 H Carbon Dioxide Level 25 25 Anion Gap 10 8 Blood Urea Nitrogen 17 17 Creatinine 1.15 1.14 Glucose Level 136 111 Calcium Level 8.5 8.8 Magnesium Level 2.3 2.3 Total Bilirubin 0.2 Direct Bilirubin 0.00 Indirect Bilirubin 0.2 Aspartate Amino Transf (AST/SGOT) 21 Alanine Aminotransferase (ALT/SGPT) 34 Alkaline Phosphatase 92 Total Protein 6.9 Albumin 2.8 L Globulin 4.10 H Albumin/Globulin Ratio 0.68 White Blood Count 9.2 Red Blood Count 3.51 L Hemoglobin 9.4 L Hematocrit 30.8 L Mean Corpuscular Volume 87.7 Mean Corpuscular Hemoglobin 26.8 L Mean Corpuscular Hemoglobin Concent 30.5 L Red Cell Distribution Width 18.9 H Platelet Count 227 # Mean Platelet Volume 12.7 H Neutrophils % 68.7 Lymphocytes % 16.2 Monocytes % 7.7 Eosinophils % 6.7 Basophils % 0.2 Nucleated Red Blood Cells % 0.0 Neutrophils # 6.3 Lymphocytes # 1.5 Monocytes # 0.7 Eosinophils # 0.6 H Basophils # 0.0 Nucleated Red Blood Cells # 0.0 Phosphorus Level 3.1 Medications Medications Current Medications Ondansetron HCl (Zofran Inj) 4 mg Q6H PRN IV NAUSEA AND/OR VOMITING; Start at 06:00 Acetaminophen (Tylenol Supp) 650 mg Q4H PRN [place] PAIN LEVEL 1-3 OR FEVER; Start 01/16/17 at 06:00 Enoxaparin Sodium (Lovenox) 30 mg DAILY SC Last administered on 01/22/17 09:21 ; Admin Dose 30 MG; Start 01/16/17 at 09:00 Famotidine 20 mg 20 mg DAILY IV Last administered on 01/22/17 09:12; Admin Dose 20 MG; Start 01/17/17 at 09:00 Vancomycin HCl 750 mg/Dextrose/ Water 150 ml @ 75 mls/hr Q24H IVPB Last administered on 01/21/17 11:25; Admin Dose 75 MLS/HR; Start 01/17/17 at 12:00 Propofol 100 ml @ 2.16 mls/hr Q12H IV Last administered on 01/20/17 02:15; Admin Dose 6.48 MLS/HR; Start 01/16/17 at 12:00 Dextrose 1,000 ml @ 100 mls/hr Q10H IV Last administered on 01/22/17 08:00; Admin Dose 100 MLS/HR; Start 01/17/17 at 16:30 Fentanyl (Sublimaze) 100 ml @ 2.5 mls/hr TITRATE IV ; Start 01/18/17 at 10:00 Mupirocin 1 applic 1 applic BID TOP Last administered on 01/22/17 09:08; Admin Dose 1 APPLIC; Start 01/19/17 at 21:00 Piperacillin Sod/ Tazobactam Sod (Zosyn 2.25gm/ 50ml (Pmx)) 50 ml @ 100 mls/hr Q6H IVPB Last administered on 01/21/17 22:05; Admin Dose 100 MLS/HR; Start at 22:00 Hydralazine HCl (Apresoline) 10 mg Q4H PRN IV SBP ABOVE OR = 160 Last administered on 01/20/17 21:12; Admin Dose 10 MG; Start 01/20/17 at 20:00 Miscellaneous Information (*Rx Drug Level Order Reminder*) VANCOMYCIN TROUGH ON 12/26... ONCE ONCE XX ; Start 01/22/17 at 11:00; Stop 01/22/17 at 11:01 HANY LAWLER Jan 22, 2017 09:59
[2017-01-22] MEDS: VANCOMYCIN 750 MG in DEXTROSE 5% 150 ML IVPB SCH (13:40)
[2017-01-22] MEDS: ALBUTEROL/IPRATROPIUM (NEB) 3 ML AMP HHN SCH ×2 (13:54→19:46)
--- NOTE | 2017-01-22 14:29 | CONS ---
Date/Time of Note Date/Time of Note DATE: 01/22/17 TIME: 14:28 Assessment/Plan Assessment/Plan Additional Assessment/Plan 81 yo Male with 1) Severe Sepsis 2) Hypernatremia 3) Trinh - Non oliguric improving 4) VDRF 5) Severe Anemia, S/p PRBC 6) Chronic HTN Stable renal function, TRINH Resolved Na improving to goal Cont current Rx and plan Will cont to Monitor UO, Electrolytes and renal function closely Consultation Date/Type/Reason Admit Date/Time Jan 16, 2017 at 05:58 Initial Consult Date 01/19/17 Type of Consultation: Renal Referring Provider: SEBLE BENJAMIN 24 HR Interval Summary Subjective hx not possible: pt critical status Constitutional: requiring O2 Exam/Review of Systems Vital Signs Vitals Vital Signs Date Time Temp Pulse Resp B/P Pulse Ox O2 Delivery O2 Flow Rate FiO2 01/22/17 13:54 83 20 96 Nasal Cannula 2.0 01/22/17 12:00 114/77 01/22/17 11:00 97.8 01/22/17 00:58 21 Intake and Output 01/21/17 01/21/17 01/22/17 15:00 23:00 07:00 Intake Total 1625.0 ml 1080 ml 720 ml Output Total 1650 ml 900 ml 1250 ml Balance -25.0 ml 180 ml -530 ml Exam Constitutional: No distress ENMT: intubated, mucosa pink and moist Neck: No jvd Respiratory: No diminished breath sounds, No labored breathing Cardiovascular: regular rate and rhythm, No edema Gastrointestinal: non-tender, soft Extremities: No edema Neurological: lethargic Results Result Diagram: 01/22/17 0430 01/22/17 0430 Results 24 hrs Laboratory Tests Test 01/21/17 20:02 01/22/17 04:30 01/22/17 11:08 Sodium Level 144 143 Potassium Level 3.7 3.6 Chloride Level 113 H 114 H Carbon Dioxide Level 25 25 Anion Gap 10 8 Blood Urea Nitrogen 17 17 Creatinine 1.15 1.14 Glucose Level 136 111 Calcium Level 8.5 8.8 Magnesium Level 2.3 2.3 Total Bilirubin 0.2 Direct Bilirubin 0.00 Indirect Bilirubin 0.2 Aspartate Amino Transf (AST/SGOT) 21 Alanine Aminotransferase (ALT/SGPT) 34 Alkaline Phosphatase 92 Total Protein 6.9 Albumin 2.8 L Globulin 4.10 H Albumin/Globulin Ratio 0.68 White Blood Count 9.2 Red Blood Count 3.51 L Hemoglobin 9.4 L Hematocrit 30.8 L Mean Corpuscular Volume 87.7 Mean Corpuscular Hemoglobin 26.8 L Mean Corpuscular Hemoglobin Concent 30.5 L Red Cell Distribution Width 18.9 H Platelet Count 227 # Mean Platelet Volume 12.7 H Neutrophils % 68.7 Lymphocytes % 16.2 Monocytes % 7.7 Eosinophils % 6.7 Basophils % 0.2 Nucleated Red Blood Cells % 0.0 Neutrophils # 6.3 Lymphocytes # 1.5 Monocytes # 0.7 Eosinophils # 0.6 H Basophils # 0.0 Nucleated Red Blood Cells # 0.0 Phosphorus Level 3.1 Vancomycin Level Trough 13.5 Medications Medications Current Medications Ondansetron HCl (Zofran Inj) 4 mg Q6H PRN IV NAUSEA AND/OR VOMITING; Start at 06:00 Acetaminophen (Tylenol Supp) 650 mg Q4H PRN [place] PAIN LEVEL 1-3 OR FEVER; Start 01/16/17 at 06:00 Enoxaparin Sodium (Lovenox) 30 mg DAILY SC Last administered on 01/22/17 09:21 ; Admin Dose 30 MG; Start 01/16/17 at 09:00 Famotidine 20 mg 20 mg DAILY IV Last administered on 01/22/17 09:12; Admin Dose 20 MG; Start 01/17/17 at 09:00 Vancomycin HCl 750 mg/Dextrose/ Water 150 ml @ 75 mls/hr Q24H IVPB Last administered on 01/22/17 13:40; Admin Dose 75 MLS/HR; Start 01/17/17 at 12:00 Propofol 100 ml @ 2.16 mls/hr Q12H IV Last administered on 01/20/17 02:15; Admin Dose 6.48 MLS/HR; Start 01/16/17 at 12:00 Dextrose 1,000 ml @ 100 mls/hr Q10H IV Last administered on 01/22/17 08:00; Admin Dose 100 MLS/HR; Start 01/17/17 at 16:30 Fentanyl (Sublimaze) 100 ml @ 2.5 mls/hr TITRATE IV ; Start 01/18/17 at 10:00 Mupirocin 1 applic 1 applic BID TOP Last administered on 01/22/17 09:08; Admin Dose 1 APPLIC; Start 01/19/17 at 21:00 Piperacillin Sod/ Tazobactam Sod (Zosyn 2.25gm/ 50ml (Pmx)) 50 ml @ 100 mls/hr Q6H IVPB Last administered on 01/22/17 11:43; Admin Dose 100 MLS/HR; Start at 22:00 Hydralazine HCl (Apresoline) 10 mg Q4H PRN IV SBP ABOVE OR = 160 Last administered on 01/20/17 21:12; Admin Dose 10 MG; Start 01/20/17 at 20:00 RODERICK PALMA MD Jan 22, 2017 14:29
--- NOTE | 2017-01-22 18:39 | PN ---
Date/Time of Note Date/Time of Note DATE: 01/22/17 TIME: 18:31 Assessment/Plan VTE Prophylaxis VTE Prophylaxis Intervention: LMWH Lines/Catheters IV Catheter Type (from Nrs): Peripheral IV Assessment/Plan Chief Complaint/Hosp Course 1. Sepsis secondary to aspiration pneumonia-resolved DC antibiotics 2. Acute restaurant failure secondary to aspiration pneumonia-resolved and extubated Downgrade to telemetry 3. Advanced dementia Had family conference today and family now open to meet with hospice, social worker [facility] has arranged for hospice eval tomorrow, CODE STATUS also discussed and family now leaning towards no code but will let hospice know for sure tomorrow Continue PEG tube feeds 4. History of coronary disease status post CABG in the past-no acute issues 5. Acute injury secondary sepsis-resolved Nephrology consultation appreciated 6. Hypernatremia-resolved with D5W Prophylaxis: Lovenox Discharge planning: Family to meet with hospice tomorrow, family is leaning towards usp with hospice but will confirm tomorrow Problems: Subjective 24 Hr Interval Summary Subjective hx not possible: pt non-verbal Exam/Review of Systems Vital Signs Vitals Vital Signs Date Time Temp Pulse Resp B/P Pulse Ox O2 Delivery O2 Flow Rate FiO2 01/22/17 16:00 76 01/22/17 16:00 97.9 27 107/72 100 Nasal Cannula 01/22/17 13:54 2.0 01/22/17 00:58 21 Intake and Output 01/21/17 01/21/17 01/22/17 14:59 22:59 06:59 Intake Total 1687.5 ml 1180 ml 720 ml Output Total 1640 ml 985 ml 1250 ml Balance 47.5 ml 195 ml -530 ml Exam Constitutional: alert, non-verbal Respiratory: clear to auscultation Cardiovascular: regular rate and rhythm Gastrointestinal: soft, No distended Musculoskeletal: nl extremities to inspection Results Result Diagram: 01/22/17 0430 01/22/17 0430 Results 24 hrs Laboratory Tests Test 01/21/17 20:02 01/22/17 04:30 01/22/17 11:08 Sodium Level 144 143 Potassium Level 3.7 3.6 Chloride Level 113 H 114 H Carbon Dioxide Level 25 25 Anion Gap 10 8 Blood Urea Nitrogen 17 17 Creatinine 1.15 1.14 Glucose Level 136 111 Calcium Level 8.5 8.8 Magnesium Level 2.3 2.3 Total Bilirubin 0.2 Direct Bilirubin 0.00 Indirect Bilirubin 0.2 Aspartate Amino Transf (AST/SGOT) 21 Alanine Aminotransferase (ALT/SGPT) 34 Alkaline Phosphatase 92 Total Protein 6.9 Albumin 2.8 L Globulin 4.10 H Albumin/Globulin Ratio 0.68 White Blood Count 9.2 Red Blood Count 3.51 L Hemoglobin 9.4 L Hematocrit 30.8 L Mean Corpuscular Volume 87.7 Mean Corpuscular Hemoglobin 26.8 L Mean Corpuscular Hemoglobin Concent 30.5 L Red Cell Distribution Width 18.9 H Platelet Count 227 # Mean Platelet Volume 12.7 H Neutrophils % 68.7 Lymphocytes % 16.2 Monocytes % 7.7 Eosinophils % 6.7 Basophils % 0.2 Nucleated Red Blood Cells % 0.0 Neutrophils # 6.3 Lymphocytes # 1.5 Monocytes # 0.7 Eosinophils # 0.6 H Basophils # 0.0 Nucleated Red Blood Cells # 0.0 Phosphorus Level 3.1 Vancomycin Level Trough 13.5 Medications Medications Current Medications Ondansetron HCl (Zofran Inj) 4 mg Q6H PRN IV NAUSEA AND/OR VOMITING; Start at 06:00 Acetaminophen (Tylenol Supp) 650 mg Q4H PRN [place] PAIN LEVEL 1-3 OR FEVER; Start 01/16/17 at 06:00 Enoxaparin Sodium (Lovenox) 30 mg DAILY SC Last administered on 01/22/17 09:21 ; Admin Dose 30 MG; Start 01/16/17 at 09:00 Famotidine 20 mg 20 mg DAILY IV Last administered on 01/22/17 09:12; Admin Dose 20 MG; Start 01/17/17 at 09:00 Vancomycin HCl 750 mg/Dextrose/ Water 150 ml @ 75 mls/hr Q24H IVPB Last administered on 01/22/17 13:40; Admin Dose 75 MLS/HR; Start 01/17/17 at 12:00 Propofol 100 ml @ 2.16 mls/hr Q12H IV Last administered on 01/20/17 02:15; Admin Dose 6.48 MLS/HR; Start 01/16/17 at 12:00 Fentanyl (Sublimaze) 100 ml @ 2.5 mls/hr TITRATE IV ; Start 01/18/17 at 10:00 Mupirocin 1 applic 1 applic BID TOP Last administered on 01/22/17 09:08; Admin Dose 1 APPLIC; Start 01/19/17 at 21:00 Piperacillin Sod/ Tazobactam Sod (Zosyn 2.25gm/ 50ml (Pmx)) 50 ml @ 100 mls/hr Q6H IVPB Last administered on 01/22/17 16:53; Admin Dose 100 MLS/HR; Start at 22:00 Hydralazine HCl (Apresoline) 10 mg Q4H PRN IV SBP ABOVE OR = 160 Last administered on 01/20/17 21:12; Admin Dose 10 MG; Start 01/20/17 at 20:00 SEBLE BENJAMIN Jan 22, 2017 18:39
[2017-01-23] VITALS (13 sets, daily range): BP systolic 138–177; BP diastolic 65–88; PULSE 66–159; RESP 16–19
[2017-01-23 08:16] LABS: BASOPHILS % 0.1 % (0.0-2.0); EOSINOPHILS # 0.5 10^3/ul (0.0-0.5); EOSINOPHILS % 6.6 % (0.0-7.0); HEMATOCRIT 29.1 % (42.0-52.0); HEMOGLOBIN 8.7 g/dl (14.0-18.0); LYMPHOCYTES # 1.6 10^3/ul (0.8-2.9); LYMPHOCYTES % 22.6 % (15.0-51.0); MEAN CORPUSCULAR HEMOGLOBIN 26.8 pg (29.0-33.0); MEAN CORPUSCULAR HGB CONC 29.9 g/dl (32.0-37.0); MEAN CORPUSCULAR VOLUME 89.5 fl (82.0-101.0); MEAN PLATELET VOLUME 12.4 fl (7.4-10.4); MONOCYTE # 0.7 10^3/ul (0.3-0.9); NEUTROPHIL # 4.1 10^3/ul (1.6-7.5); NEUTROPHILS % 60.3 % (39.0-77.0); PLATELET COUNT 223 10^3/UL (140-415); RED BLOOD COUNT 3.25 10^6/ul (4.70-6.10); WHITE BLOOD COUNT 6.9 10^3/ul (4.8-10.8)
[2017-01-23 08:46] LABS: CALCIUM 8.6 mg/dl (8.4-10.2); CREATININE 1.22 mg/dl (0.61-1.24); POTASSIUM 3.7 mmol/L (3.5-5.1)
[2017-01-23] MEDS: FAMOTIDINE 20 MG INJ IV SCH (08:52)
[2017-01-23] MEDS: MUPIROCIN 2% 22 GM OINT TOP SCH ×2 (08:53→21:14)
[2017-01-23] MEDS: ENOXAPARIN 30 MG/0.3 ML SYG SC SCH (08:54)
[2017-01-23] MEDS: ALBUTEROL/IPRATROPIUM (NEB) 3 ML AMP HHN SCH ×3 (09:06→20:03)
--- NOTE | 2017-01-23 10:52 | PN ---
DATE: 01/22/2017 SUBJECTIVE DATA: No acute events overnight. Patient is lethargic with increased secretions that he is unable to cough up, requires frequent suctioning per Respiratory. He is in no distress. VITAL SIGNS: Temperature 97.8, pulse 77, respirations 16, blood pressure 136/65, saturation 97 on 2 L. LABORATORY AND DIAGNOSTIC DATA: WBC 9.2, H and H 9.4 and 30.8, platelets 227,000, neutrophils 68.7, normal lytes. BUN 17, creatinine 1.14. DIAGNOSTICS: Chest x-ray this morning revealed no change. INDWELLINGS: Right IJ triple lumen catheter, PEG, Mcdonald. ANTIMICROBIALS: Patient is on Zosyn and vancomycin. He is also getting Bactroban to nares. PHYSICAL EXAMINATION: GENERAL: This is a chronically ill-appearing elderly man who is lethargic and in no distress. HEENT: Head atraumatic, normocephalic. Sclerae anicteric. Buccal mucosa dry. NECK: Supple. CHEST: Rise symmetrical. Breath sounds with bilateral crackles. HEART: S1, S2. ABDOMEN: Soft, bowel sounds present. EXTREMITIES: No cyanosis. ASSESSMENT: 1. Resolving sepsis status post shock. 2. Respiratory failure, status post extubated, now with significant secretion retention and possible ongoing aspiration. 3. Pneumonia. 4. Methicillin-resistant Staphylococcus aureus nares colonization. 5. History of coronary artery bypass grafting. 6. Alzheimer's dementia and dysphagia. PLAN: Patient remains clinically unchanged. He is on high risk for aspiration. He is covered with broad-spectrum antibiotics. Continue present care. Aggressive pulmonary toilet. Keep head of the bed elevated at all times. Dictated By: Ez Malik NP /isrrael/lilian /Document#: [id number]
--- NOTE | 2017-01-23 14:46 | PN ---
Date/Time of Note Date/Time of Note DATE: 01/23/17 TIME: 14:44 Assessment/Plan VTE Prophylaxis VTE Prophylaxis Intervention: other Lines/Catheters Urinary Cath still in place: Yes Reason Cath still needed: urinary retention Assessment/Plan Assessment/Plan ) Severe Sepsis 2) Hypernatremia 3) Trinh - Non oliguric improving 4) VDRF 5) Severe Anemia, S/p PRBC 6) Chronic HTN [id number] non oliguric resollved renal insufficiency Exam/Review of Systems Vital Signs Vitals Vital Signs Date Time Temp Pulse Resp B/P Pulse Ox O2 Delivery O2 Flow Rate FiO2 01/23/17 13:36 2.0 01/23/17 13:36 82 20 95 Nasal Cannula 01/23/17 11:46 98.4 140/75 01/22/17 00:58 21 Intake and Output 01/22/17 01/22/17 01/23/17 15:00 23:00 07:00 Intake Total 1030 ml 560 ml 1040 ml Output Total 651 ml 224 ml 700 ml Balance 379 ml 336 ml 340 ml Exam Neck: supple Respiratory: clear to auscultation, normal air movement Cardiovascular: nl pulses, regular rate and rhythm Gastrointestinal: nl liver, spleen, non-tender, soft Musculoskeletal: nl extremities to inspection Results Result Diagram: 01/23/17 0734 01/23/17 0734 Results 24 hrs Laboratory Tests Test 01/23/17 07:34 White Blood Count 6.9 # Red Blood Count 3.25 L Hemoglobin 8.7 L Hematocrit 29.1 L Mean Corpuscular Volume 89.5 Mean Corpuscular Hemoglobin 26.8 L Mean Corpuscular Hemoglobin Concent 29.9 L Red Cell Distribution Width 19.0 H Platelet Count 223 Mean Platelet Volume 12.4 H Neutrophils % 60.3 Lymphocytes % 22.6 Monocytes % 10.0 Eosinophils % 6.6 Basophils % 0.1 Nucleated Red Blood Cells % 0.0 Neutrophils # 4.1 Lymphocytes # 1.6 Monocytes # 0.7 Eosinophils # 0.5 Basophils # 0.0 Nucleated Red Blood Cells # 0.0 Sodium Level 145 H Potassium Level 3.7 Chloride Level 114 H Carbon Dioxide Level 26 Anion Gap 9 Blood Urea Nitrogen 20 Creatinine 1.22 Glucose Level 108 Calcium Level 8.6 Medications Medications Current Medications Ondansetron HCl (Zofran Inj) 4 mg Q6H PRN IV NAUSEA AND/OR VOMITING; Start 9/ 23/17 at 06:00 Acetaminophen (Tylenol Supp) 650 mg Q4H PRN [place] PAIN LEVEL 1-3 OR FEVER; Start 01/16/17 at 06:00 Enoxaparin Sodium (Lovenox) 30 mg DAILY SC Last administered on 01/23/17 08:54 ; Admin Dose 30 MG; Start 01/16/17 at 09:00 Famotidine (Pepcid Iv) 20 mg DAILY IV Last administered on 01/23/17 08:52; Admin Dose 20 MG; Start 01/17/17 at 09:00 Mupirocin (Bactroban) 1 applic BID TOP Last administered on 01/23/17 08:53; Admin Dose 1 APPLIC; Start 01/19/17 at 21:00 Hydralazine HCl (Apresoline) 10 mg Q4H PRN IV SBP ABOVE OR = 160 Last administered on 01/20/17 21:12; Admin Dose 10 MG; Start 01/20/17 at 20:00 ROSA JOHN MD Jan 23, 2017 14:46
--- NOTE | 2017-01-23 15:29 | CONS ---
Date/Time of Note Date/Time of Note DATE: 01/23/17 TIME: 15:29 Assessment/Plan Assessment/Plan Chief Complaint/Hosp Course ID PROGRESS NOTE TOTAL ABX DAY # OFF ABX DAY #1 CURRENT ABX=> OFF ABX S/P Vanco IV + ZosyN 24H INTERVAL SUMMARY * NO fever, WBC normalized, lethargic, sleepin with supplemental O2, without dyspnea, no wheeze GENERAL: VSS, NAD HEENT: Unremarkable NECK: Trach midline, full ROM CHEST: Rise symmetrical without dyspnea on observation ABDOMEN: Soft, EXTREMITIES: Warm,(+) moves extremities SKIN: No diaphoresis, no rash ID ASSESSMENT: 81 yo M admit with: 1. s/p sepsis/shock 2. Respiratory failure, status post extubated, now with significant secretion retention and possible ongoing aspiration. 3. Pneumonia. 4. 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 5. History of coronary artery bypass grafting. 6. Alzheimer's dementia and dysphagia. INVASIVES: IJ-TLC, FC ABX ALLERGY: None to ABX TOTAL ABX DAY # CURRENT ABX=> OFF ABX day #1 S/P Vanco IV + ZosyN ID PLAN 1. Monitor OFF ABX 2. Aspiration precautions & pulmonary toilet . Problems: Consultation Date/Type/Reason Admit Date/Time Jan 16, 2017 at 05:58 Initial Consult Date 01/19/17 Type of Consultation: ID Referring Provider: SEBLE BENJAMIN Exam/Review of Systems Vital Signs Vitals Vital Signs Date Time Temp Pulse Resp B/P Pulse Ox O2 Delivery O2 Flow Rate FiO2 01/23/17 13:36 2.0 01/23/17 13:36 82 20 95 Nasal Cannula 01/23/17 11:46 98.4 140/75 01/22/17 00:58 21 Intake and Output 01/22/17 01/22/17 01/23/17 15:00 23:00 07:00 Intake Total 1030 ml 560 ml 1040 ml Output Total 651 ml 224 ml 700 ml Balance 379 ml 336 ml 340 ml Results Result Diagram: 01/23/17 0734 01/23/17 0734 Results 24 hrs Laboratory Tests Test 01/23/17 07:34 White Blood Count 6.9 # Red Blood Count 3.25 L Hemoglobin 8.7 L Hematocrit 29.1 L Mean Corpuscular Volume 89.5 Mean Corpuscular Hemoglobin 26.8 L Mean Corpuscular Hemoglobin Concent 29.9 L Red Cell Distribution Width 19.0 H Platelet Count 223 Mean Platelet Volume 12.4 H Neutrophils % 60.3 Lymphocytes % 22.6 Monocytes % 10.0 Eosinophils % 6.6 Basophils % 0.1 Nucleated Red Blood Cells % 0.0 Neutrophils # 4.1 Lymphocytes # 1.6 Monocytes # 0.7 Eosinophils # 0.5 Basophils # 0.0 Nucleated Red Blood Cells # 0.0 Sodium Level 145 H Potassium Level 3.7 Chloride Level 114 H Carbon Dioxide Level 26 Anion Gap 9 Blood Urea Nitrogen 20 Creatinine 1.22 Glucose Level 108 Calcium Level 8.6 Medications Medications Current Medications Ondansetron HCl (Zofran Inj) 4 mg Q6H PRN IV NAUSEA AND/OR VOMITING; Start at 06:00 Acetaminophen (Tylenol Supp) 650 mg Q4H PRN [place] PAIN LEVEL 1-3 OR FEVER; Start 01/16/17 at 06:00 Enoxaparin Sodium (Lovenox) 30 mg DAILY SC Last administered on 01/23/17 08:54 ; Admin Dose 30 MG; Start 01/16/17 at 09:00 Famotidine (Pepcid Iv) 20 mg DAILY IV Last administered on 01/23/17 08:52; Admin Dose 20 MG; Start 01/17/17 at 09:00 Mupirocin (Bactroban) 1 applic BID TOP Last administered on 01/23/17 08:53; Admin Dose 1 APPLIC; Start 01/19/17 at 21:00 Hydralazine HCl (Apresoline) 10 mg Q4H PRN IV SBP ABOVE OR = 160 Last administered on 01/20/17 21:12; Admin Dose 10 MG; Start 01/20/17 at 20:00 LUIZ CYR NP Jan 23, 2017 15:29
--- NOTE | 2017-01-23 16:14 | PN ---
Date/Time of Note Date/Time of Note DATE: 01/23/17 TIME: 16:11 Assessment/Plan VTE Prophylaxis VTE Prophylaxis Intervention: LMWH Lines/Catheters Urinary Cath still in place: Yes Reason Cath still needed: urinary retention Assessment/Plan Chief Complaint/Hosp Course 81 yo male with advanced Alzheimer's and vascular dementia, CAD s/p CABG, recurrent aspiration pneumonias, PEG tube for dysphagia NH resident who presented with sepsis from aspiration pneumonia and hypernatremia. Required intubation for acute hypoxic respiratory failure. Now extubated and stable on NC Pneumonia: - Completed abx course Hypernatremia and JOSLYN -Resolved NEURO: Alzheimers and vascular dementia - Stable CV: Hypertension - BP stable off of therapy Overall patient with dismal senior care prognosis. Patient and step daughter are aware of this and have discussed hospice previously. They are not willing to change goals of care at this time. Remains full code. Readdress daily Discharge back to facility Problems: Subjective 24 Hr Interval Summary Free Text/Dictation Patient stable on NC Audibly gurgling Appears comfortable [facility], no decision made yet Exam/Review of Systems Vital Signs Vitals Vital Signs Date Time Temp Pulse Resp B/P Pulse Ox O2 Delivery O2 Flow Rate FiO2 01/23/17 13:36 2.0 01/23/17 13:36 82 20 95 Nasal Cannula 01/23/17 11:46 98.4 140/75 01/22/17 00:58 21 Intake and Output 01/22/17 01/22/17 01/23/17 15:00 23:00 07:00 Intake Total 1030 ml 560 ml 1040 ml Output Total 651 ml 224 ml 700 ml Balance 379 ml 336 ml 340 ml Exam Gurgling secretions Moves all extremiteis x 4 Breathing is nonlabored Constitutional: alert, non-verbal Results Result Diagram: 01/23/17 0734 01/23/17 0734 Results 24 hrs Laboratory Tests Test 01/23/17 07:34 White Blood Count 6.9 # Red Blood Count 3.25 L Hemoglobin 8.7 L Hematocrit 29.1 L Mean Corpuscular Volume 89.5 Mean Corpuscular Hemoglobin 26.8 L Mean Corpuscular Hemoglobin Concent 29.9 L Red Cell Distribution Width 19.0 H Platelet Count 223 Mean Platelet Volume 12.4 H Neutrophils % 60.3 Lymphocytes % 22.6 Monocytes % 10.0 Eosinophils % 6.6 Basophils % 0.1 Nucleated Red Blood Cells % 0.0 Neutrophils # 4.1 Lymphocytes # 1.6 Monocytes # 0.7 Eosinophils # 0.5 Basophils # 0.0 Nucleated Red Blood Cells # 0.0 Sodium Level 145 H Potassium Level 3.7 Chloride Level 114 H Carbon Dioxide Level 26 Anion Gap 9 Blood Urea Nitrogen 20 Creatinine 1.22 Glucose Level 108 Calcium Level 8.6 Medications Medications Current Medications Ondansetron HCl (Zofran Inj) 4 mg Q6H PRN IV NAUSEA AND/OR VOMITING; Start at 06:00 Acetaminophen (Tylenol Supp) 650 mg Q4H PRN [place] PAIN LEVEL 1-3 OR FEVER; Start 01/16/17 at 06:00 Enoxaparin Sodium (Lovenox) 30 mg DAILY SC Last administered on 01/23/17 08:54 ; Admin Dose 30 MG; Start 01/16/17 at 09:00 Famotidine (Pepcid Iv) 20 mg DAILY IV Last administered on 01/23/17 08:52; Admin Dose 20 MG; Start 01/17/17 at 09:00 Mupirocin (Bactroban) 1 applic BID TOP Last administered on 01/23/17 08:53; Admin Dose 1 APPLIC; Start 01/19/17 at 21:00 Hydralazine HCl (Apresoline) 10 mg Q4H PRN IV SBP ABOVE OR = 160 Last administered on 01/20/17 21:12; Admin Dose 10 MG; Start 01/20/17 at 20:00 KARLIE VELEZ MD Jan 23, 2017 16:14
--- NOTE | 2017-01-23 16:43 | CONS ---
Date/Time of Note Date/Time of Note DATE: 01/23/17 TIME: 16:41 Consult Date/Type/Reason Admit Date/Time Jan 16, 2017 at 05:58 Initial Consult Date 01/19/17 Type of Consultation: Pulm Ordering Provider: SEBLE BENJAMIN Subjective No events. Objective Vital Signs Date Time Temp Pulse Resp B/P Pulse Ox O2 Delivery O2 Flow Rate FiO2 01/23/17 16:07 83 01/23/17 15:37 98.3 18 148/75 95 01/23/17 13:36 2.0 01/23/17 13:36 Nasal Cannula 01/22/17 00:58 21 Intake and Output 01/22/17 01/22/17 01/23/17 15:00 23:00 07:00 Intake Total 1030 ml 560 ml 1040 ml Output Total 651 ml 224 ml 700 ml Balance 379 ml 336 ml 340 ml Exam HEENT: Neck supple; no JVD; no LAD CVS: RRR, S1 and S2 CHEST: Clear ABD: Soft, NT, + BS EXT: No c/c; +edema Results/Medications Result Diagram: 01/23/17 0734 01/23/17 0734 Results 24 hrs Laboratory Tests Test 01/23/17 07:34 White Blood Count 6.9 # Red Blood Count 3.25 L Hemoglobin 8.7 L Hematocrit 29.1 L Mean Corpuscular Volume 89.5 Mean Corpuscular Hemoglobin 26.8 L Mean Corpuscular Hemoglobin Concent 29.9 L Red Cell Distribution Width 19.0 H Platelet Count 223 Mean Platelet Volume 12.4 H Neutrophils % 60.3 Lymphocytes % 22.6 Monocytes % 10.0 Eosinophils % 6.6 Basophils % 0.1 Nucleated Red Blood Cells % 0.0 Neutrophils # 4.1 Lymphocytes # 1.6 Monocytes # 0.7 Eosinophils # 0.5 Basophils # 0.0 Nucleated Red Blood Cells # 0.0 Sodium Level 145 H Potassium Level 3.7 Chloride Level 114 H Carbon Dioxide Level 26 Anion Gap 9 Blood Urea Nitrogen 20 Creatinine 1.22 Glucose Level 108 Calcium Level 8.6 Medications Current Medications Ondansetron HCl (Zofran Inj) 4 mg Q6H PRN IV NAUSEA AND/OR VOMITING; Start at 06:00 Acetaminophen (Tylenol Supp) 650 mg Q4H PRN [place] PAIN LEVEL 1-3 OR FEVER; Start 01/16/17 at 06:00 Enoxaparin Sodium (Lovenox) 30 mg DAILY SC Last administered on 01/23/17 08:54 ; Admin Dose 30 MG; Start 01/16/17 at 09:00 Famotidine (Pepcid Iv) 20 mg DAILY IV Last administered on 01/23/17 08:52; Admin Dose 20 MG; Start 01/17/17 at 09:00 Mupirocin (Bactroban) 1 applic BID TOP Last administered on 01/23/17 08:53; Admin Dose 1 APPLIC; Start 01/19/17 at 21:00 Hydralazine HCl (Apresoline) 10 mg Q4H PRN IV SBP ABOVE OR = 160 Last administered on 01/20/17 21:12; Admin Dose 10 MG; Start 01/20/17 at 20:00 Assessment/Plan Additional Assessment/Plan IMP: 1. s/p Resp Failure 2. Demena 3. Anemia 4. HyperNa+ RECS: 1. Aspiration precautions 2. Agree that a DNR/DNI status would be most appropriate. JAX MENDOZA MD Jan 23, 2017 16:43
[2017-01-24] VITALS (9 sets, daily range): BP systolic 132–183; BP diastolic 76–94; PULSE 79–94; RESP 16–20
[2017-01-24] MEDS: ALBUTEROL/IPRATROPIUM (NEB) 3 ML AMP HHN SCH ×3 (07:59→19:59)
[2017-01-24] MEDS: FAMOTIDINE 20 MG INJ IV SCH (08:46)
[2017-01-24] MEDS: hydrALAzine 20 MG INJ IV PRN (08:47)
[2017-01-24] MEDS: ENOXAPARIN 30 MG/0.3 ML SYG SC SCH (08:48)
[2017-01-24] MEDS: MUPIROCIN 2% 22 GM OINT TOP SCH ×2 (08:56→21:33)
--- NOTE | 2017-01-24 15:23 | CONS ---
Date/Time of Note Date/Time of Note DATE: 01/24/17 TIME: 15:21 Consult Date/Type/Reason Admit Date/Time Jan 16, 2017 at 05:58 Initial Consult Date 01/19/17 Type of Consultation: Pulm Ordering Provider: SELBE BENJAMIN Subjective No events noted. Objective Vital Signs Date Time Temp Pulse Resp B/P Pulse Ox O2 Delivery O2 Flow Rate FiO2 01/24/17 14:20 2.0 01/24/17 14:20 84 20 95 Aerosol 01/24/17 12:00 98.2 138/81 01/22/17 00:58 21 Intake and Output 01/23/17 01/23/17 01/24/17 15:00 23:00 07:00 Intake Total 1040 ml 1040 ml Output Total 600 ml 1400 ml Balance 440 ml -360 ml Exam HEENT: Neck supple; no JVD; no LAD CVS: RRR, S1 and S2 CHEST: Clear ABD: Soft, NT, + BS EXT: No c/c/e Results/Medications Result Diagram: 01/23/17 0734 01/23/17 0734 Medications Current Medications Ondansetron HCl (Zofran Inj) 4 mg Q6H PRN IV NAUSEA AND/OR VOMITING; Start at 06:00 Acetaminophen (Tylenol Supp) 650 mg Q4H PRN [place] PAIN LEVEL 1-3 OR FEVER; Start 01/16/17 at 06:00 Enoxaparin Sodium (Lovenox) 30 mg DAILY SC Last administered on 01/24/17 08:48 ; Admin Dose 30 MG; Start 01/16/17 at 09:00 Famotidine (Pepcid Iv) 20 mg DAILY IV Last administered on 01/24/17 08:46; Admin Dose 20 MG; Start 01/17/17 at 09:00 Mupirocin (Bactroban) 1 applic BID TOP Last administered on 01/24/17 08:56; Admin Dose 1 APPLIC; Start 01/19/17 at 21:00 Hydralazine HCl (Apresoline) 10 mg Q4H PRN IV SBP ABOVE OR = 160 Last administered on 01/24/17 08:47; Admin Dose 10 MG; Start 01/20/17 at 20:00 Assessment/Plan Additional Assessment/Plan IMP: 1. s/p Resp Failure 2. Dementia 3. Anemia 4. HyperNa+ RECS: 1. Aspiration precautions/CPT prn 2. Agree that a DNR/DNI status would be most appropriate--> team to further discuss goals of care JAX MENDOZA MD Jan 24, 2017 15:23
--- NOTE | 2017-01-24 15:24 | PN ---
Date/Time of Note Date/Time of Note DATE: 01/24/17 TIME: 15:23 Assessment/Plan VTE Prophylaxis VTE Prophylaxis Intervention: LMWH Lines/Catheters IV Catheter Type (from Nrsg): Saline Lock Urinary Cath still in place: Yes Reason Cath still needed: urinary retention, other (indicate) Assessment/Plan Chief Complaint/Hosp Course 81 yo male with advanced Alzheimer's and vascular dementia, CAD s/p CABG, recurrent aspiration pneumonias, PEG tube for dysphagia NH resident who presented with sepsis from aspiration pneumonia and hypernatremia. Required intubation for acute hypoxic respiratory failure. 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 Patient and step daughter are aware of this and have discussed hospice previously. They are not willing to change goals of care at this time. Remains full code. Readdress daily Ready for discharge back to facility Problems: Subjective 24 Hr Interval Summary Free Text/Dictation Stable off of antibiotics Nonverbal Appears comfortable Exam/Review of Systems Vital Signs Vitals Vital Signs Date Time Temp Pulse Resp B/P Pulse Ox O2 Delivery O2 Flow Rate FiO2 01/24/17 14:20 2.0 01/24/17 14:20 84 20 95 Aerosol 01/24/17 12:00 98.2 138/81 01/22/17 00:58 21 Intake and Output 01/23/17 01/23/17 01/24/17 15:00 23:00 07:00 Intake Total 1040 ml 1040 ml Output Total 600 ml 1400 ml Balance 440 ml -360 ml Exam alert, nonverbal Spontaneosu movements x 4 Lungs rhoncorous Results Result Diagram: 01/23/17 0734 01/23/17 0734 Medications Medications Current Medications Ondansetron HCl (Zofran Inj) 4 mg Q6H PRN IV NAUSEA AND/OR VOMITING; Start at 06:00 Acetaminophen (Tylenol Supp) 650 mg Q4H PRN [place] PAIN LEVEL 1-3 OR FEVER; Start 01/16/17 at 06:00 Enoxaparin Sodium (Lovenox) 30 mg DAILY SC Last administered on 01/24/17t 08:48 ; Admin Dose 30 MG; Start 01/16/17 at 09:00 Famotidine (Pepcid Iv) 20 mg DAILY IV Last administered on 01/24/17 08:46; Admin Dose 20 MG; Start 01/17/17 at 09:00 Mupirocin (Bactroban) 1 applic BID TOP Last administered on 01/24/17 08:56; Admin Dose 1 APPLIC; Start 01/19/17 at 21:00 Hydralazine HCl (Apresoline) 10 mg Q4H PRN IV SBP ABOVE OR = 160 Last administered on 01/24/17 08:47; Admin Dose 10 MG; Start 01/20/17 at 20:00 KARLIE VELEZ MD Jan 24, 2017 15:24
--- NOTE | 2017-01-24 16:44 | CONS ---
Date/Time of Note Date/Time of Note DATE: 01/24/17 TIME: 16:43 Assessment/Plan Assessment/Plan Chief Complaint/Hosp Course ID PROGRESS NOTE TOTAL ABX DAY # OFF ABX DAY #2 CURRENT ABX=> OFF ABX S/P Vanco IV + ZosyN 24H INTERVAL SUMMARY * Frail 81 yo, noncommunicative, lethargic, NO fever, WBC normalized, lethargic , sleepin with supplemental O2, without dyspnea, no wheeze GENERAL: VSS, NAD HEENT: Unremarkable NECK: Trach midline, full ROM CHEST: Rise symmetrical without dyspnea on observation ABDOMEN: Soft, EXTREMITIES: Warm,(+) moves extremities SKIN: No diaphoresis, no rash ID ASSESSMENT: 81 yo M admit with: 1. s/p sepsis/shock 2. Respiratory failure, status post extubated, now with significant secretion retention and possible ongoing aspiration. 3. Pneumonia. 4. 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 5. History of coronary artery bypass grafting. 6. Alzheimer's dementia and dysphagia. INVASIVES: IJ-TLC, FC ABX ALLERGY: None to ABX TOTAL ABX DAY # CURRENT ABX=> OFF ABX day #2 S/P Vanco IV + ZosyN ID PLAN 1. Monitor OFF ABX 2. Aspiration precautions & pulmonary toilet . Problems: Consultation Date/Type/Reason Admit Date/Time Jan 16, 2017 at 05:58 Initial Consult Date 01/19/17 Type of Consultation: ID Referring Provider: SEBLE BENJAMIN Exam/Review of Systems Vital Signs Vitals Vital Signs Date Time Temp Pulse Resp B/P Pulse Ox O2 Delivery O2 Flow Rate FiO2 01/24/17 16:22 98.6 80 20 154/76 96 01/24/17 14:20 2.0 01/24/17 14:20 Aerosol 01/22/17 00:58 21 Intake and Output 01/23/17 01/23/17 01/24/17 15:00 23:00 07:00 Intake Total 1040 ml 1040 ml Output Total 600 ml 1400 ml Balance 440 ml -360 ml Results Result Diagram: 01/23/17 0734 01/23/17 0734 Medications Medications Current Medications Ondansetron HCl (Zofran Inj) 4 mg Q6H PRN IV NAUSEA AND/OR VOMITING; Start at 06:00 Acetaminophen (Tylenol Supp) 650 mg Q4H PRN [place] PAIN LEVEL 1-3 OR FEVER; Start 01/16/17 at 06:00 Enoxaparin Sodium (Lovenox) 30 mg DAILY SC Last administered on 01/24/17 08:48 ; Admin Dose 30 MG; Start 01/16/17 at 09:00 Famotidine (Pepcid Iv) 20 mg DAILY IV Last administered on 01/24/17 08:46; Admin Dose 20 MG; Start 01/17/17 at 09:00 Mupirocin (Bactroban) 1 applic BID TOP Last administered on 01/24/17 08:56; Admin Dose 1 APPLIC; Start 01/19/17 at 21:00 Hydralazine HCl (Apresoline) 10 mg Q4H PRN IV SBP ABOVE OR = 160 Last administered on 01/24/17 08:47; Admin Dose 10 MG; Start 01/20/17 at 20:00 LUIZ CYR NP Jan 24, 2017 16:44
[2017-01-25] VITALS (11 sets, daily range): BP systolic 127–186; BP diastolic 74–93; PULSE 74–94; RESP 16–26
[2017-01-25] MEDS: ALBUTEROL/IPRATROPIUM (NEB) 3 ML AMP HHN SCH ×2 (08:07→13:57)
[2017-01-25] MEDS: FAMOTIDINE 20 MG INJ IV SCH (08:19)
[2017-01-25] MEDS: MUPIROCIN 2% 22 GM OINT TOP SCH (08:29)
[2017-01-25] MEDS: ENOXAPARIN 30 MG/0.3 ML SYG SC SCH (08:30)
--- NOTE | 2017-01-25 11:24 | CONS ---
Date/Time of Note Date/Time of Note DATE: 01/25/17 TIME: 11:10 Assessment/Plan Assessment/Plan Additional Assessment/Plan Assessment and recommendations; 1. Patient admitted with severe intravascular volume depletion with prerenal azotemia with significant improvement. 2. Advanced dementia. 3. Anemia. 4. Status post respiratory failure. 5. Chronic dysphagia, status post G-tube placement in the past. Continue current treatment. Consider discharge. Prognosis is poor. Consultation Date/Type/Reason Admit Date/Time Jan 16, 2017 at 05:58 Initial Consult Date 01/16/17 Type of Consultation: Pulmonary Referring Provider: SEBLE BENJAMIN 24 HR Interval Summary Free Text/Dictation Patient's condition is stable. Has been transferred out of ICU to medical floor. Patient has advanced dementia and is awake but unresponsive to any commands. General exam; elderly male, awake, currently in no distress. Exam/Review of Systems Vital Signs Vitals Vital Signs Date Time Temp Pulse Resp B/P Pulse Ox O2 Delivery O2 Flow Rate FiO2 01/25/17 08:17 94 01/25/17 08:08 2.0 01/25/17 08:08 18 95 Nasal Cannula 01/25/17 07:29 97.8 186/93 01/22/17 00:58 21 Intake and Output 01/24/17 01/24/17 01/25/17 15:00 23:00 07:00 Intake Total 1040 ml Output Total 1500 ml Balance -460 ml Exam HEENT exam; supple neck, no JVD. No lymphadenopathy. Midline trachea. No thyromegaly. Patient has few remaining teeth which appear carious. Chest exam; diminished but clear breath sounds. S1-S2 audible, no murmurs. Regular rhythm. Abdomen exam; soft, nondistended. No organomegaly. G-tube in place. Bowel sounds audible. Extremity exam; no edema. Patient does have ecchymosis involving all 4 extremities. 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 Results Result Diagram: 01/23/17 0734 01/23/17 0734 Medications Medications Current Medications Ondansetron HCl (Zofran Inj) 4 mg Q6H PRN IV NAUSEA AND/OR VOMITING; Start at 06:00 Acetaminophen (Tylenol Supp) 650 mg Q4H PRN [place] PAIN LEVEL 1-3 OR FEVER; Start 01/16/17 at 06:00 Enoxaparin Sodium (Lovenox) 30 mg DAILY SC Last administered on 01/25/17 08:30 ; Admin Dose 30 MG; Start 01/16/17 at 09:00 Famotidine (Pepcid Iv) 20 mg DAILY IV Last administered on 01/25/17 08:19; Admin Dose 20 MG; Start 01/17/17 at 09:00 Mupirocin (Bactroban) 1 applic BID TOP Last administered on 01/25/17 08:29; Admin Dose 1 APPLIC; Start 01/19/17 at 21:00 Hydralazine HCl (Apresoline) 10 mg Q4H PRN IV SBP ABOVE OR = 160 Last administered on 01/24/17 08:47; Admin Dose 10 MG; Start 01/20/17 at 20:00 HANY LAWLER Jan 25, 2017 11:14
--- NOTE | 2017-01-25 12:38 | PDOCDIS ---
Discharge Instructions CONDITION Patient Condition: Guarded HOME CARE INSTRUCTIONS: Diet Instructions: RegularSpecial Diet: FIBERSOURCE FOLLOW UP/APPOINTMENTS Follow-up Plan Follow up with [facility] for further evaluation for hospice care It is improtant to keep discussing goals of care going forward Very improtant to closely watch him as he eats to avoid aspiration KARLIE VELEZ MD Jan 25, 2017 12:38
--- NOTE | 2017-01-25 14:42 | CONS ---
Date/Time of Note Date/Time of Note DATE: 01/25/17 TIME: 14:41 Assessment/Plan Assessment/Plan Additional Assessment/Plan 81 yo Male with 1) Severe Sepsis- Resolved 2) Hypernatremia- Improved and stable 3) Trinh -Resolved 4) VDRF- Resolved 5) Severe Anemia, S/p PRBC-stable 6) Chronic HTN- Controlled Stable renal function, TRINH Resolved Na improving to goal Cont free H20, Possible plan for discharge Will sign off case, re consult as needed. Consultation Date/Type/Reason Admit Date/Time Jan 16, 2017 at 05:58 Initial Consult Date 01/19/17 Type of Consultation: Renal Referring Provider: SEBLE BENJAMIN Exam/Review of Systems Vital Signs Vitals Vital Signs Date Time Temp Pulse Resp B/P Pulse Ox O2 Delivery O2 Flow Rate FiO2 01/25/17 13:57 83 22 96 Nasal Cannula 2.0 01/25/17 11:28 97.8 127/74 01/22/17 00:58 21 Intake and Output 01/24/17 01/24/17 01/25/17 15:00 23:00 07:00 Intake Total 1040 ml Output Total 1500 ml Balance -460 ml Results Result Diagram: 01/23/17 0734 01/23/17 0734 Medications Medications Current Medications Ondansetron HCl (Zofran Inj) 4 mg Q6H PRN IV NAUSEA AND/OR VOMITING; Start at 06:00 Acetaminophen (Tylenol Supp) 650 mg Q4H PRN [place] PAIN LEVEL 1-3 OR FEVER; Start 01/16/17 at 06:00 Enoxaparin Sodium (Lovenox) 30 mg DAILY SC Last administered on 01/25/17 08:30 ; Admin Dose 30 MG; Start 01/16/17 at 09:00 Famotidine (Pepcid Iv) 20 mg DAILY IV Last administered on 01/25/17 08:19; Admin Dose 20 MG; Start 01/17/17 at 09:00 Mupirocin (Bactroban) 1 applic BID TOP Last administered on 01/25/17 08:29; Admin Dose 1 APPLIC; Start 01/19/17 at 21:00 Hydralazine HCl (Apresoline) 10 mg Q4H PRN IV SBP ABOVE OR = 160 Last administered on 01/24/17 08:47; Admin Dose 10 MG; Start 01/20/17 at 20:00 RODERICK PALMA MD Jan 25, 2017 14:42
--- NOTE | 2017-01-25 17:31 | DS ---
Date/Time of Note Date/Time of Note DATE: 01/25/17 TIME: 17:29 Discharge Summary Admission/Discharge Info Admit Date/Time Jan 16, 2017 at 05:58 Discharge Date/Time Discharge Diagnosis Healthcare associated pneumonia Patient Condition: Serious Hx of Present Illness 81 yo male with advanced Alzheimers and vascular dementia, s/p CVA, recurrent aspiration pneumonias, dysphagia w PEG tube who presents with hypoxia and worsening lethargy from MS. Per documentation was recently discharged from [facility] for pneumonia treated w [facility]. Unclear details during post hosptial course but clealry with wosening hypoxia and lethargy. Brought to hosptial and foudn to be febrile, hypoxic and emergently intubated in the ED. Also found to be severely hypernatremic Brought to ICU where I saw him. Unable to communicate wtih me but appears comfortable on the ventilator Step daughter and then showed up at bedside. DIscussed his dismal prongosis. THey are aware that he will not recovere from dementai and will suffer recurrent aspiration pneumonias but do not want to let him . Still request full court press Hospital Course The patient presented in acute hypoxic respiratory failure and was intubated on arrival in the emergency room. He remained normotensive. Chest imaging showed significant consoldiation consistent with pneumoina. He was treated with vancomycin and zosyn for pneumoina. He was eventually extubated after a short ICU course. Given the patients Alzheimers dementia, his poor prognosis was discussed with his family and recommendation for hospice was made. Family met with [facility] hospice but declined at this time. He will transfer back to SNF Home Meds Reported Medications Quetiapine Fumarate* (Quetiapine Fumarate*) 25 Mg Tablet, 25 MG PO HS, TAB 01/16/17 Tamsulosin Hcl* (Tamsulosin Hcl*) 0.4 Mg Cap.er.24h, 0.4 MG PO HS, CAP 01/16/17 Doxazosin Mesylate* (Doxazosin Mesylate*) 2 Mg Tablet, 2 MG PO HS, TAB 01/16/17 Cran/Vitc/Mannose/Inulin/Brom (Uti-Stat Liquid) 3,875 Mg/30 Ml Liquid, 3875 MG PO DAILY 05/05/14 Donepezil* (Aricept*) 10 Mg Tablet, 10 MG PO QHS, TAB 1/10/15 Na Phos,M-B/Na Phos,Di-Ba* (Fleet* Enema) 118 Ml Enema, 118 ML [place] DAILY Y for CONSTIPATION, ENEMA 05/05/14 Magnesium Hydroxide* (Milk Of Magnesia*) 400 Mg/5 Ml Oral.susp, 30 ML PO QHS Y for CONSTIPATION, ML 05/05/14 Bisacodyl* (Dulcolax*) 5 Mg Tablet.dr, 10 MG PO DAILY Y for CONSTIPATION, TAB 05/05/14 Memantine* (Namenda*) 5 Mg Tablet, 5 MG PO DAILY, TAB 05/05/14 Discontinued Reported Medications Ipratropium-Albuterol (Ipratropium-Albuterol) 0.5-3 Mg/3 Ml Ampul.neb, 3 ML INHALATION Q6, #30 VIAL 01/16/17 Atorvastatin Calcium* (Atorvastatin Calcium*) 20 Mg Tablet, 20 MG PO QHS, #30 TAB 01/16/17 Famotidine* (Famotidine*) 20 Mg Tablet, 20 MG PO DAILY, #30 TAB 01/16/17 Metoprolol Tartrate* (Lopressor*) 50 Mg Tab, 50 MG PO BID, #60 TAB 01/16/17 Aspirin* (Aspirin* (EC)) 81 Mg Tablet.dr, 81 MG PO DAILY, TAB 05/05/14 Simvastatin (Simvastatin) 10 Mg Tablet, 10 MG PO HS, TAB 05/05/14 Amlodipine Besylate* (Norvasc*) 10 Mg Tablet, 10 MG PO DAILY, TAB 05/05/14 Atenolol* (Atenolol*) 50 Mg Tablet, 50 MG PO DAILY, TAB 05/05/14 Follow-up Plan Follow up with [facility] for further evaluation for hospice care It is improtant to keep discussing goals of care going forward Very improtant to closely watch him as he eats to avoid aspiration Primary Care Provider MD ROSIE Freedman,KARLIE Almaraz MD Jan 25, 2017 17:31
[2017-01-25] MEDS ORDERED: BALSAM PERU/CASTOR OIL 60 GM TUBE TOP SCH (21:00)
--- NOTE | 2017-01-26 06:47 | PN ---
DATE: 01/25/2017 SUBJECTIVE DATA: No acute events overnight. The patient is lethargic, looks comfortable. He is afebrile. No labs this morning. INDWELLINGS: PEG. ANTIMICROBIALS: He is off antibiotics. PHYSICAL EXAMINATION: GENERAL: Chronically ill-appearing, elderly man, who is in no distress. HEENT: Head atraumatic, normocephalic. Sclerae anicteric. Buccal mucosa dry. NECK: Supple. CHEST: Rise symmetrical. Breath sounds with bilateral rhonchi. HEART: S1, S2. ABDOMEN: Soft, bowel sounds present. EXTREMITIES: Without cyanosis. ASSESSMENT: 1. Status post pneumonia with acute respiratory failure. 2. Dysphagia with significant secretion retention. 3. Status post septic shock. 4. Methicillin-resistant Staphylococcus aureus nares colonization. 5. Alzheimer's dementia. 6. History of coronary artery bypass grafting. PLAN: The patient remains clinically unchanged. We will continue observing him off antibiotics. Continue aspiration precautions. Keep head of the bed elevated at all times. Repeat cultures p.r.n. Dictated By: Ez Malik NP /[email or web address]/kina /Document#: [id number]
== END 2017-01-25 18:35 | DRG 870 ==
LOC: E/R 04:47 → ICU 05:58 → MS4 01-22 18:24
PROVIDERS: ADMIT Family Medicine; ATTEND Family Medicine
PROC: 0BH17EZ Insertion of Endotracheal Airway into Trachea, Via Natural or Artificial Opening (ICD-10-PCS; principal; 2017-01-16)
PROC: 5A1955Z Respiratory Ventilation, Greater than 96 Consecutive Hours (ICD-10-PCS; 2017-01-16)
PROC: 02HV33Z Insertion of Infusion Device into Superior Vena Cava, Percutaneous Approach (ICD-10-PCS; 2017-01-16)
PROC: B548ZZA Ultrasonography of Superior Vena Cava, Guidance (ICD-10-PCS; 2017-01-16)
PROC: 30233N1 Transfusion of Nonautologous Red Blood Cells into Peripheral Vein, Percutaneous Approach (ICD-10-PCS; 2017-01-19)
DX: A41.9 Sepsis, unspecified organism (principal); J96.01 Acute respiratory failure with hypoxia; R65.21 Severe sepsis with septic shock; J69.0 Pneumonitis due to inhalation of food and vomit; I47.2 Ventricular tachycardia; R13.10 Dysphagia, unspecified; D69.6 Thrombocytopenia, unspecified; N17.9 Acute kidney failure, unspecified; E87.0 Hyperosmolality and hypernatremia; Z93.1 Gastrostomy status; I10 Essential (primary) hypertension; G30.9 Alzheimer's disease, unspecified; F02.80 Dementia in other diseases classified elsewhere, unspecified severity, without behavioral disturbance, psychotic disturbance, mood disturbance, and anxiety; F01.50 Vascular dementia, unspecified severity, without behavioral disturbance, psychotic disturbance, mood disturbance, and anxiety; I25.10 Atherosclerotic heart disease of native coronary artery without angina pectoris; Z95.1 Presence of aortocoronary bypass graft; D64.9 Anemia, unspecified; Z22.322 Carrier or suspected carrier of Methicillin resistant Staphylococcus aureus
CPT/HCPCS: 31500; 36415; 36430; 36600; 71010; 80048; 80053; 80202; 81001; 82803; 83605; 83735; 84100; 84484; 85025; 85610; 85730; 86850; 86900; 86901; 86920; 87040; 87070; 87081; 87086; 89220; 93005; 94002; 94003; 94640; 94664; 94770; 96374; 96375; 97161; 97530; C1751; C9113; J0360; J0692; J1650; J2543; J3370; J3480; J7030; J7070; P9016